=== PATIENT | male | born 1955 ===

== ENCOUNTER 2017-03-05 13:14 | Inpatient (IN) | payer BC, MEDICAID ==
[2017-03-05] MEDS ORDERED: Sodium Chloride 0.9% 1,000 ML IV STA (13:43)
--- NOTE | 2017-03-05 13:46 | ED PDOC ---
Arrival/HPI - General Time Seen by Provider: 03/05/17 13:15 Historian: Patient - History of Present Illness Narrative History of Present Illness (Text): 03/05/17 13:45 A 61 year old male, whose past medical history includes diabetes and Hyperlipidemia, presents to the emergency department for evaluation after being recommended to come to the emergency department by primary doctor, Dr. Lam to eval for UTI vs. Prostatitis . The patient has a 1 day history of pain when urinating with a fever. He also states how he feels as he has a incomplete bladder emptying. The patient denies nausea, vomiting, constipation, diarrhea, penile discharge, scrotal swelling, flank pain, or any other complaints at this time. PMD: Dr. Lam Time/Duration: 24 hours Symptom Onset: Sudden Symptom Course: Unchanged Quality: Burning Activities at Onset: Light Context: Home Past Medical History - Provider Review Nursing Documentation Reviewed: Yes - Cardiac Hx Hyperlipemia: Yes Hx Hypertension: Yes - Endocrine/Metabolic Hx Diabetes Mellitus Type 2: Yes - Hematological/Oncological Hx Blood Transfusions: No - Musculoskeletal/Rheumatological Hx Falls: No - Psychiatric Hx Depression: No Hx Emotional Abuse: No Hx Physical Abuse: No Hx Substance Use: No - Past Surgical History Past Surgical History: No Previous - Anesthesia Hx Anesthesia Reactions: No Hx Malignant Hyperthermia: No - Suicidal Assessment Feels Threatened In Home Enviroment: No Family/Social History - Physician Review Nursing Documentation Reviewed: Yes Family/Social History: No Known Family HX Smoking Status: nonsmoker Hx Alcohol Use: No Hx Substance Use: No Hx Substance Use Treatment: No Allergies/Home Meds Allergies/Adverse Reactions: Allergies No Known Allergies Allergy (Verified 05/13/14 11:00) Home Medications: Home Meds Medication Instructions Recorded Confirmed Ezetimibe/Simvastatin [Vytorin 10 1 tab PO DAILY 08/19/12 05/13/14 mg-10 mg] Glyburide [Glyburide] 5 mg PO BID 05/13/14 05/13/14 Insulin Aspart, Recombinant 24 units SC DAILY 05/13/14 05/13/14 [Novolog] Insulin Detemir [Levemir] 30 units SC DAILY 05/13/14 05/13/14 Lisinopril [Lisinopril] 20 mg PO DAILY 05/13/14 05/13/14 Meclizine HCl [Antivert] 12.5 mg PO TID PRN 05/13/14 05/13/14 Metformin HCl [Metformin] 1,000 mg PO BID 05/13/14 05/13/14 Silodosin [Rapaflo] 8 mg PO DAILY 05/13/14 05/13/14 Review of Systems - Physician Review All systems were reviewed & negative as marked: Yes - Review of Systems Constitutional: Fevers Eyes: absent: Vision Changes ENT: absent: Hearing Changes Respiratory: absent: SOB, Cough, Sputum, Wheezing Cardiovascular: absent: Chest Pain, Palpitations, Edema, Calf Pain, ERDDY, Orthopnea, Syncope Gastrointestinal: absent: Abdominal Pain, Constipation, Diarrhea, Nausea, Vomiting Genitourinary Male: Dysuria, Frequency, Urinary Output Changes. absent: Hematuria Musculoskeletal: absent: Back Pain Skin: absent: Rash Neurological: absent: Headache Endocrine: absent: Diaphoresis Hemo/Lymphatic: absent: Adenopathy Psychiatric: absent: Anxiety Physical Exam Vital Signs Reviewed: Yes Vital Signs Temp Pulse Resp BP Pulse Ox 03/05/17 13:14 98.8 F 101 H 18 151/72 H 100 Temperature: Afebrile Blood Pressure: Hypertensive Pulse: Tachycardic Respiratory Rate: Normal Appearance: Positive for: Well-Appearing, Non-Toxic, Comfortable Pain Distress: None Mental Status: Positive for: Alert and Oriented X 3 - Systems Exam Head: Present: Atraumatic, Normocephalic Pupils: Present: PERRL Extroacular Muscles: Present: EOMI Conjunctiva: Present: Normal Mouth: Present: Moist Mucous Membranes Neck: Present: Normal Range of Motion Respiratory/Chest: Present: Clear to Auscultation, Good Air Exchange. No: Respiratory Distress, Accessory Muscle Use Cardiovascular: Present: Regular Rate and Rhythm, Normal S1, S2. No: Murmurs Abdomen: Present: Normal Bowel Sounds. No: Tenderness, Distention, Peritoneal Signs Genitourinary Male: Present: Normal External Genitalia, Circumcised Penis ( Nurse Светлана chaperoned throughout examination). No: Lesions, Penile Discharge, Testicle Tenderness, Penile Swelling, Masses, Erythema, Hernias, Testicle Swelling, Prostate Tenderness, Prostate Enlargement Back: Present: Normal Inspection. No: CVA Tenderness, Midline Tenderness Upper Extremity: Present: Normal Inspection. No: Cyanosis, Edema Lower Extremity: Present: Normal Inspection. No: Edema Neurological: Present: GCS=15, CN II-XII Intact, Speech Normal Skin: Present: Warm, Dry, Normal Color. No: Rashes Psychiatric: Present: Alert, Oriented x 3, Normal Insight, Normal Concentration Medical Decision Making ED Course and Treatment: 03/05/17 13:58 Impression: A 61 year old male with dysuria. Differential Diagnosis included but are not limited to: Plan: -- Abd & Pel CT -- Labs -- Toradol, IV Fluids -- Urinalysis -- Reassess and disposition Progress Notes: 03/05/17 14:49 Labs show elevated wbc with shift, and mildly elevated alk phos. UA negative for leukocytes and nitrates but shows 20 wbc, few bacteria, and 2-5 rbcs. Post void residual 0. P:CT 03/05/17 16:15 CT abd/pelvis shows "LOWER THORAX: Unremarkable. LIVER: Unremarkable. No gross lesion or ductal dilatation. GALLBLADDER AND BILE DUCTS: Unremarkable. PANCREAS: Unremarkable. No gross lesion or ductal dilatation. SPLEEN: Unremarkable. ADRENALS: Unremarkable. No mass. KIDNEYS AND URETERS: Unremarkable. No hydronephrosis. No solid mass. VASCULATURE: Unremarkable. No aortic aneurysm. BOWEL: Unremarkable. No obstruction. No gross mural thickening. APPENDIX: Normal appendix. PERITONEUM: Unremarkable. No free fluid. No free air. LYMPH NODES: Unremarkable. No enlarged lymph nodes. BLADDER: Unremarkable. REPRODUCTIVE: Unremarkable. BONES: No acute fracture. OTHER FINDINGS: None. IMPRESSION: Unremarkable contrast enhanced CT of the abdomen and pelvis." 03/05/17 16:[address] Lacey. Due to patient's leukocytosis, fever, presenting tachycardia and ua with bacteria and wbc, will admit to med/sx for early uti vs prostatis pending ucx and bcx. Requesting admission to med/sx with ceftriaxone. - Lab Interpretations Lab Results: 03/05/17 14:20 03/05/17 14:20 Lab Results 03/05/17 14:20: Sodium 134, Potassium 4.3, Chloride 99, Carbon Dioxide 25, Anion Gap 14, BUN 10, Creatinine 0.9, Est GFR ( Amer) > 60, Est GFR (Non- Af Amer) > 60, Random Glucose 210 H, Calcium 9.7, Phosphorus 3.1, Magnesium 1.4 L, Total Bilirubin 0.7, AST 41, ALT 45, Alkaline Phosphatase 274 H, Total Protein 7.5, Albumin 3.9, Globulin 3.6, Albumin/Globulin Ratio 1.1 03/05/17 14:20: Urine Color Yellow, Urine Appearance Sl cloudy, Urine pH 6.0, Ur Specific Heth >= 1.030, Urine Protein >=300 H, Urine Glucose (UA) 500 H, Urine Ketones Trace H, Urine Blood Small H, Urine Nitrate Negative, Urine Bilirubin Negative, Urine Urobilinogen 0.2, Ur Leukocyte Esterase Negative, Urine RBC 2 - 5, Urine WBC 15 - 20, Ur Epithelial Cells 1 - 3, Urine Bacteria Few 03/05/17 14:20: WBC 13.0 H D, RBC 4.45, Hgb 10.1 L, Hct 31.7 L, MCV 71.2 L, MCH 22.7 L, MCHC 31.9, RDW 17.0 H, Plt Count 203, MPV 10.6, Gran % 83.2 H, Lymph % ( Auto) 8.6 L, [place] % (Auto) 8.0 H, Eos % (Auto) 0.0 L, Baso % (Auto) 0.2, Gran # 10.82 H, Lymph # 1.1 L, [place] # 1.0 H, Eos # 0.0, Baso # 0.02 - RAD Interpretation Radiology Orders: 03/05/17 13:44 ABD & PELVIS IV CONTRAST ONLY [CT] Stat - Medication Orders Current Medication Orders: Sodium Chloride (Sodium Chloride 0.9%) 1,000 mls @ 100 mls/hr IV .Q10H JAVI Ceftriaxone Sodium (Rocephin 1 Gram Ivpb) 1 gm in 100 mls @ 200 mls/hr IVPB STAT STA PRN Reason: Protocol Stop: 03/05/17 17:10 Discontinued Medications Sodium Chloride (Sodium Chloride 0.9%) 1,000 mls @ 999 mls/hr IV .Q1H1M STA Stop: 03/05/17 14:43 Last Admin: 03/05/17 14:20 Dose: 999 mls/hr eMAR Start Stop Document 03/05/17 14:20 EQ (Rec: 03/05/17 14:46 EQ [facility] – [id number][place] Intravenous Solution Start Date 03/05/17 Start Time 14:20 Ketorolac Tromethamine (Toradol) 30 mg IVP STAT STA Stop: 03/05/17 13:44 Last Admin: 03/05/17 14:46 Dose: 30 mg MAR Pain Assessment Document 03/05/17 14:46 EQ (Rec: 03/05/17 14:46 [place] [facility] [id number] Pain Reassessment Is this a pain reassessment? No Sleep Is patient sleeping during reassessment? No Presence of Pain Presence of Pain Yes Pain Scale Used Pain Scale Used Numeric IVP Administration Document 03/05/17 14:46 EQ (Rec: 03/05/17 14:46 EQ [facility] – [id number]) Charges for Administration # of IVP Administrations 1 - Scribe Statement The provider has reviewed the documentation as recorded by the Charly Valencia Provider Scribe Attestation: All medical record entries made by the Scribe were at my direction and personally dictated by me. I have reviewed the chart and agree that the record accurately reflects my personal performance of the history, physical exam, medical decision making, and the department course for this patient. I have also personally directed, reviewed, and agree with the discharge instructions and disposition. Disposition/Present on Arrival - Present on Arrival Any Indicators Present on Arrival: No History of DVT/PE: No History of Uncontrolled Diabetes: No Urinary Catheter: No History Surgical Site Infection Following: None - Disposition Have Diagnosis and Disposition been Completed?: Yes Diagnosis: Dysuria Disposition: HOSPITALIZED Disposition Time: 16:50 Patient Plan: Admission Patient Problems: Current Active Problems Problem Status Onset Anemia Chronic Diabetes mellitus Chronic Condition: FAIR Referrals: Emeli Arnold MD [Primary Care Provider] - Follow up with primary
[2017-03-05 14:30] LABS: BASO # 0.02 K/mm3 (0.0-2.0); BASO % 0.2 % (0.0-3.0); GRAN # 10.82 (1.4-6.5); GRAN % 83.2 % (50.0-68.0); HEMATOCRIT 31.7 % (42.0-52.0); LYMPH # 1.1 (1.2-3.4); LYMPH % 8.6 % (22.0-35.0); MEAN CELL VOLUME 71.2 fl (80.0-105.0); MEAN CORPUSCULAR HEMOGLOBIN 22.7 pg (25.0-35.0); MEAN CORPUSCULAR HGB CONC 31.9 g/dl (31.0-37.0); MEAN PLATELET VOLUME 10.6 fl (7.0-11.0); URINE BILIRUBIN NEGATIVE (NEGATIVE); URINE BLOOD SMALL (NEGATIVE); URINE GLUCOSE (UA) 500 mg/dL (NEGATIVE); URINE KETONE TRACE mg/dL (NEGATIVE); URINE LEUKOCYTE ESTERASE NEGATIVE Leu/uL (NEGATIVE); URINE PROTEIN >=300 mg/dL (<30 mg/dL); URINE UROBILINOGEN 0.2 E.U./dL (<1 E.U./dL)
[2017-03-05 14:31] LABS: URINE APPEARANCE SL CLOUDY (CLEAR); URINE COLOR YELLOW (YELLOW)
[2017-03-05 14:37] LABS: URINE BACTERIA FEW (NEG); URINE WBC 15 - 20 /hpf (0-6)
[2017-03-05 14:40] LABS: ALB/GLOB RATIO 1.1 (1.1-1.8); ALKALINE PHOSPHATASE 274 U/L (38-126); ALT/SGPT 45 U/L (7-56); AST/SGOT 41 U/L (17-59); BILIRUBIN,TOTAL 0.7 mg/dL (0.2-1.3); BLOOD UREA NITROGEN 10 mg/dL (7-21); CALCIUM 9.7 mg/dL (8.4-10.5); CARBON DIOXIDE 25 mmol/L (21-33); CHLORIDE 99 mmol/L (98-107); GFR AFRICAN-AMERICAN > 60; GLUCOSE,RANDOM 210 mg/dL (70-110); MAGNESIUM 1.4 mg/dL (1.7-2.2); PHOSPHOROUS 3.1 mg/dL (2.5-4.5); POTASSIUM 4.3 mmol/L (3.6-5.0); SODIUM 134 mmol/L (132-148); TOTAL PROTEIN 7.5 g/dL (5.8-8.3)
[2017-03-05] MEDS ORDERED: Iohexol 350 MG/100 ML VIAL ONE (15:36)
--- NOTE | 2017-03-05 16:15 | CT ---
PROCEDURE: CT Abdomen and Pelvis with contrast HISTORY: abdominal pain COMPARISON: None. TECHNIQUE: Contrast dose: 100 cc of Omni 350 Radiation dose: Total exam DLP = 293 mGy-cm. This CT exam was performed using one or more of the following dose reduction techniques: Automated exposure control, adjustment of the mA and/or kV according to patient size, and/or use of iterative reconstruction technique. FINDINGS: LOWER THORAX: Unremarkable. LIVER: Unremarkable. No gross lesion or ductal dilatation. GALLBLADDER AND BILE DUCTS: Unremarkable. PANCREAS: Unremarkable. No gross lesion or ductal dilatation. SPLEEN: Unremarkable. ADRENALS: Unremarkable. No mass. KIDNEYS AND URETERS: Unremarkable. No hydronephrosis. No solid mass. VASCULATURE: Unremarkable. No aortic aneurysm. BOWEL: Unremarkable. No obstruction. No gross mural thickening. APPENDIX: Normal appendix. PERITONEUM: Unremarkable. No free fluid. No free air. LYMPH NODES: Unremarkable. No enlarged lymph nodes. BLADDER: Unremarkable. REPRODUCTIVE: Unremarkable. BONES: No acute fracture. OTHER FINDINGS: None. IMPRESSION: Unremarkable contrast enhanced CT of the abdomen and pelvis.
[2017-03-05] MEDS ORDERED: cefTRIAXone 1 gm 1 GM/100 ML BAG IVPB STA (16:41)
[2017-03-05 17:30] VITALS: BMI 24.7
[2017-03-05] MEDS: Sodium Chloride 0.9% 1,000 ML IV SCH (17:50)
[2017-03-05] MEDS: Insulin Reg-HIGH-Coverage SC SCH (21:43)
[2017-03-05] MEDS: Insulin Detemir 100 units/ml Vial (Levemir) SC SCH (21:44)
[2017-03-05] MEDS ORDERED: Pneumococcal 23-Valent Vaccine IM ONE (22:09)
[2017-03-05] MEDS ORDERED: Influenza Vaccine 60 mcg/0.5 mL SYR (4YR UP) IM ONE (22:09)
[2017-03-06] MEDS: Sodium Chloride 0.9% 1,000 ML IV SCH (03:00)
--- NOTE | 2017-03-06 06:00 | CP.PCM.PN ---
Subjective - Date & Time of Evaluation Date of Evaluation: 03/06/17 Time of Evaluation: 05:58 - Subjective Subjective: Seen because patient requested pain medicine. Has complaint of pain in urethra. 61 year old male was admitted with suprapubic pain, intermittent fever of 5 days duration. Is here for UTI. Has PMH of DM II , HLD , HTN, GI bleeding. Has no other complaints. He was given tylenol one hour earlier. Also received toradol in the ER which seemed to have helped. Objective - Vital Signs/Intake and Output Vital Signs (last 24 hours): Temp Pulse Resp BP Pulse Ox 98.8 F 101 H 18 157/72 H 98 03/05/17 21:56 03/05/17 21:56 03/05/17 21:56 03/05/17 21:56 03/05/17 17:52 Intake and Output: 03/05/17 03/06/17 18:59 06:59 Intake Total 420 Balance 420 - Medications Medications: Current Medications Acetaminophen (Tylenol 325mg Tab) 650 mg PO Q4H PRN PRN Reason: Fever >100.4 F Last Admin: 03/06/17 04:37 Dose: 650 mg Atorvastatin Calcium (Lipitor) 20 mg PO DIN [facility] Last Admin: 03/05/17 21:43 Dose: 20 mg Sodium Chloride (Sodium Chloride 0.9%) 1,000 mls @ 100 mls/hr IV .Q10H [facility] Last Admin: 03/06/17 03:00 Dose: 100 mls/hr Ceftriaxone Sodium (Rocephin 1 Gram Ivpb) 1 gm in 100 mls @ 100 mls/hr IVPB DAILY [facility] PRN Reason: Protocol Insulin Detemir (Levemir) 30 unit SC HS [facility] Last Admin: 03/05/17 21:44 Dose: 30 unit Insulin Human Regular (Humulin R High) 0 units SC ACHS [facility] PRN Reason: Protocol Last Admin: 03/05/17 21:43 Dose: 2 units Lisinopril (Zestril) 30 mg PO DAILY [facility] Metformin HCl (Glucophage) 1,000 mg PO BID [facility] Last Admin: 03/05/17 23:27 Dose: Not Given - Constitutional Appears: Well, No Acute Distress - Head Exam Head Exam: ATRAUMATIC, NORMAL INSPECTION, NORMOCEPHALIC - Eye Exam Eye Exam: Normal appearance - ENT Exam ENT Exam: Normal External Ear Exam - Neck Exam Neck Exam: Normal Inspection - Respiratory Exam Respiratory Exam: NORMAL BREATHING PATTERN - Cardiovascular Exam Cardiovascular Exam: absent: JVD - GI/Abdominal Exam GI & Abdominal Exam: absent: Distended - Rectal Exam Rectal Exam: Deferred - Exam Additional comments: Deferred. - Extremities Exam Extremities Exam: Normal Inspection - Back Exam Back Exam: NORMAL INSPECTION - Neurological Exam Neurological Exam: Alert, Oriented x3 - Psychiatric Exam Psychiatric exam: Normal Affect, Normal Mood - Skin Skin Exam: Abrasion Assessment and Plan - Assessment and Plan (Free Text) Assessment: Pain in urethra. UTI. DM II. HLD. HTN. Plan: Toradol 30 mg IV x 1. Continue present management.
[2017-03-06 06:38] LABS: HEMATOCRIT 26.1 % (42.0-52.0); MEAN CELL VOLUME 71.3 fl (80.0-105.0); MEAN CORPUSCULAR HEMOGLOBIN 22.4 pg (25.0-35.0); MEAN CORPUSCULAR HGB CONC 31.4 g/dl (31.0-37.0); MEAN PLATELET VOLUME 10.4 fl (7.0-11.0); RED CELL DISTRIBUTION WIDTH 17.2 % (11.5-14.5); WHITE BLOOD COUNT 11.2 10^3/ul (4.5-11.0)
[2017-03-06 06:56] LABS: ALB/GLOB RATIO 0.9 (1.1-1.8); ALKALINE PHOSPHATASE 195 U/L (38-126); ALT/SGPT 46 U/L (7-56); AST/SGOT 25 U/L (17-59); BILIRUBIN,TOTAL 0.5 mg/dL (0.2-1.3); BLOOD UREA NITROGEN 11 mg/dL (7-21); CALCIUM 8.7 mg/dL (8.4-10.5); CARBON DIOXIDE 24 mmol/L (21-33); CHLORIDE 106 mmol/L (95-110); GFR AFRICAN-AMERICAN > 60; GLUCOSE,RANDOM 236 mg/dL (70-110); POTASSIUM 4.1 mmol/L (3.6-5.0); SODIUM 136 mmol/L (132-148); TOTAL PROTEIN 6.2 g/dL (5.8-8.3)
[2017-03-06] MEDS: Insulin Reg-HIGH-Coverage SC SCH ×4 (08:26→21:49)
[2017-03-06] MEDS ORDERED: cefTRIAXone 1 gm 1 GM/100 ML BAG IVPB SCH (10:00)
[2017-03-06 10:19] LABS: IRON 14 ug/dL (45-180)
--- NOTE | 2017-03-06 12:24 | CP.PCM.CON ---
History of Present Illness - History of Present Illness History of Present Illness: 61 year old male with PMH of DM, dyslipidemia, HTN, history of bilateral cataract surgery was sent to [facility] because of pain on urination , hesitancy and incomplete emptying of bladder for the past 2-3 days. He was seen by his PMD and he was told to be admitted. He had subjective fevers and chills, denies flank pain, no nausea or vomiting, no headache or dizziness, no chest pain, no SOB, no abdominal pain, no diarrhea. He also denies penile discharge, no scrotal swelling. Infectious diseases consult is requested to further evaluate and manage. Review of Systems - Review of Systems All systems: reviewed and no additional remarkable complaints except (as per HPI ) Past Patient History - Past Social History Smoking Status: Never Smoked - CARDIAC Hx Hypercholesterolemia: Yes Hx Hypertension: Yes - NEUROLOGICAL Hx Dizziness: Yes - HEENT Hx HEENT Problems: Yes (eyeglasses) Hx Cataracts: Yes (b/l sx) Other/Comment: impaired vision r eye had "bleeding behind eye" pt stated - ENDOCRINE/METABOLIC Hx Diabetes Mellitus Type 2: Yes - HEMATOLOGICAL/ONCOLOGICAL Hx Blood Transfusions: No - MUSCULOSKELETAL/RHEUMATOLOGICAL Hx Falls: No - PSYCHIATRIC Hx Depression: No Hx Emotional Abuse: No Hx Physical Abuse: No Hx Substance Use: No - SURGICAL HISTORY Hx Surgeries: (b/l cataract sx) - ANESTHESIA Hx Anesthesia Reactions: No Hx Malignant Hyperthermia: No Meds Allergies/Adverse Reactions: Allergies Allergy/AdvReac Type Severity Reaction Status Date / Time No Known Allergies Allergy Verified 05/13/14 11:00 - Medications Medications: Current Medications Acetaminophen (Tylenol 325mg Tab) 650 mg PO Q4H PRN PRN Reason: Fever >100.4 F Atorvastatin Calcium (Lipitor) 20 mg PO DIN [facility] Last Admin: 03/05/17 21:43 Dose: 20 mg Sodium Chloride (Sodium Chloride 0.9%) 1,000 mls @ 100 mls/hr IV .Q10H [facility] Last Admin: 03/05/17 17:50 Dose: 100 mls/hr Ceftriaxone Sodium (Rocephin 1 Gram Ivpb) 1 gm in 100 mls @ 100 mls/hr IVPB DAILY [facility] PRN Reason: Protocol Insulin Detemir (Levemir) [address] [facility] Last Admin: 03/05/17 21:44 Dose: 30 unit Insulin Human Regular (Humulin R High) 0 units SC ACHS [facility] PRN Reason: Protocol Last Admin: 03/05/17 21:43 Dose: 2 units Lisinopril (Zestril) 30 mg PO DAILY [facility] Metformin HCl (Glucophage) 1,000 mg PO BID [facility] Last Admin: 03/05/17 23:27 Dose: Not Given Physical Exam - Constitutional Appears: Non-toxic, No Acute Distress - Head Exam Head Exam: NORMAL INSPECTION - ENT Exam ENT Exam: Mucous Membranes Moist - Neck Exam Neck exam: Negative for: Lymphadenopathy, Meningismus - Respiratory Exam Respiratory Exam: Decreased Breath Sounds - Cardiovascular Exam Cardiovascular Exam: +S1, +S2 - GI/Abdominal Exam GI & Abdominal Exam: Soft. absent: Tenderness Results - Vital Signs Recent Vital Signs: Last Vital Signs Temp 98.8 F 03/05/17 21:56 Pulse 101 H 03/05/17 21:56 Resp 18 03/05/17 21:56 BP 157/72 H 03/05/17 21:56 Pulse Ox 98 03/05/17 17:52 - Labs Result Diagrams: 03/06/17 05:35 03/06/17 05:35 Assessment & Plan - Assessment and Plan (Free Text) Plan: Assessment Sepsis due to gram negative bacilli bacteremia R/O prostatitis DM dyslipidemia HTN history of bilateral cataract surgery Plan Started patient on cefepime pending identification and sensitivities of the gram negative bacilli in the urine; follow up blood cx; reviewed CT A/P which did not show acute pathology PSA is elevated at 7.8 - follow up Urology evaluation - patient may need prolonged course of antibiotics will monitor clinically
--- NOTE | 2017-03-06 13:06 | HP ---
CHIEF COMPLAINT: Suprapubic pain and dysuria, fever for 1 week. HISTORY OF PRESENT ILLNESS: A 61-year-old male with history of poorly-controlled diabetes and hyperlipidemia, who presented with complaints of suprapubic pain, intermittent fever for 5 to 6 days. The patient states that he has severe difficulty of urination, feels like not emptying his bladder. His suprapubic pain is radiating to the rectum. He is also constipated for a couple of days. The patient was evaluated in the office. His temperature was 102. He was sent to emergency room for evaluation and treatment. PAST MEDICAL HISTORY: Significant for poorly-controlled type 2 diabetes mellitus, hyperlipidemia, hypertension, history of GI bleeding due to gastric ulcer and AV malformation. PAST SURGICAL HISTORY: No surgical history. ALLERGIES: THE PATIENT HAS NO KNOWN ALLERGIES. CURRENT MEDICATIONS: Insulin Levemir 30 units at night and 10 units of regular insulin with meals, metformin, glipizide 10 mg twice a day, lisinopril 30 mg daily and atorvastatin 40 mg daily. FAMILY HISTORY: Significant for type 2 diabetes mellitus. SOCIAL HISTORY: The patient denies any smoking, alcohol or drug use. The patient is . 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 He is independent of activity of daily living. REVIEW OF SYSTEMS: The patient complains of fever for the past 7 days. He has decrease of appetite, but denies any weight loss. He denies any sore throat, nasal congestion, dysphagia. He denies any cough, chest pain or shortness of breath. He denies any heart palpitation. He denies chest pain, nausea, vomiting or diarrhea. He complains of constipation for the past 7 days. He denies any rectal bleeding, melena or hematemesis. The patient denies any flank pain, but complains of suprapubic pain and frequency and pain on urination. The patient denies any joint pains. He denies any headaches, blurry vision, weakness or paresthesia. PHYSICAL EXAMINATION: GENERAL: The patient was alert, awake and oriented. VITAL SIGNS: His vitals are stable. His temperature in the emergency room was 98.8, his pulse 101, blood pressure 151/72, respiratory rate 18 and oxygen saturation 100%. HEENT: Head was normocephalic, atraumatic. Oral mucosa was moist. NECK: Supple. LUNGS: Clear to auscultation. HEART: With regular rhythm and rate. ABDOMEN: Soft, nondistended. There was some tenderness in the lower abdomen and pelvis bilaterally. EXTREMITIES: With no edema. Decreased pulses bilaterally. DIAGNOSTIC TESTS: CBC was insignificant for WBC 13,000, hemoglobin was 10.1, hematocrit 31.7. There was left shift with increase of granulocytes. Chemistry showed normal electrolytes, normal renal function with BUN 10 and creatinine 0.9. Random glucose was 210. His alkaline phosphatase was elevated at 274. Liver enzymes were normal. The patient had elevated prostate antigen at 7.8. Urinalysis showed cloudy urine with high protein, glucose, small amount of blood and wbc [address] scan of the abdomen showed no acute appendicitis and no acute pathology with normal reproductive organs and bladder. There was no lymphadenopathy. ASSESSMENT: 1. A 61-year-old male with history of poorly-controlled type 2 diabetes mellitus and dysuria and intermittent fever for 5 days. We must rule out urinary tract infection and acute prostatitis. 2. Type 2 diabetes mellitus. 3. Hyperlipidemia. 4. Anemia. PLAN OF TREATMENT: Admitted to Med-Surg floor. Septic workup with blood cultures and urine cultures were done. Infectious Disease specialist was called on consult. The patient was started on Rocephin. We will hydrate the patient, continue his insulin regimen. Follow up cultures. We will monitor his hemoglobin. Stool for guaiac was also ordered. Emeli Arnold MD ANDREI
--- NOTE | 2017-03-06 13:21 | US ---
PROCEDURE: Ultrasound of the Bladder HISTORY: Dysuria, prostatits? COMPARISON: None available. TECHNIQUE: Sonographic evaluation of the bladder was performed. FINDINGS: The urinary bladder is well distended and grossly normal in appearance without wall thickening or intraluminal debris. No calculus or gross mass lesion. No free fluid in pelvis. Bilateral ureteral jets are visualized on color flow imaging Prevoid Volume: 324.20 cc. Post void residual: 150 cc. The prostate gland is normal in size and measures 4.3 x 2.7 x 3.4 cm with a volume 28 cc. IMPRESSION: Moderate postvoid residual.
[2017-03-06] MEDS: Cefepime IV 2 gm in NS 2 GM/100 ML BAG IVPB SCH ×2 (13:38→22:04)
[2017-03-06 16:30] LABS: HEMATOCRIT 26.5 % (42.0-52.0); MEAN CELL VOLUME 71.4 fl (80.0-105.0); MEAN CORPUSCULAR HEMOGLOBIN 22.4 pg (25.0-35.0); MEAN CORPUSCULAR HGB CONC 31.3 g/dl (31.0-37.0); MEAN PLATELET VOLUME 10.3 fl (7.0-11.0); RED CELL DISTRIBUTION WIDTH 17.1 % (11.5-14.5)
[2017-03-06] MEDS: Pantoprazole 40 mg EC Tab PO SCH (17:25)
[2017-03-06] MEDS: Insulin Detemir 100 units/ml Vial (Levemir) SC SCH (21:53)
[2017-03-07] MEDS ORDERED: Bacitracin 500 Units/gm Oint Foilpak UD ONE (02:35)
--- NOTE | 2017-03-07 05:32 | PCM.URO ---
Urology Progress Note - Subjective Abdominal Pain: Yes - Objective Lab Studies: Reviewed (full note to be dictated /thanks for gu consult /plans to be discussed) Lab Results Last 24 Hours: Laboratory Results - last 24 hr 03/06/17 03/06/17 03/06/17 05:35 05:35 07:20 WBC 11.2 H RBC 3.66 Hgb 8.2 L Hct 26.1 L MCV 71.3 L MCH 22.4 L MCHC 31.4 RDW 17.2 H Plt Count 164 MPV 10.4 Sodium 136 Potassium 4.1 Chloride 106 Carbon Dioxide 24 Anion Gap 10 BUN 11 Creatinine 0.9 Est GFR ( Amer) > 60 Est GFR (Non-Af Amer) > 60 POC Glucose (mg/dL) 252 H Random Glucose 236 H Calcium 8.7 Iron TIBC % Saturation Ferritin Total Bilirubin 0.5 AST 25 ALT 46 Alkaline Phosphatase 195 H D Total Protein 6.2 Albumin 3.0 Globulin 3.2 Albumin/Globulin Ratio 0.9 L Stool Occult Blood 03/06/17 03/06/17 03/06/17 10:03 10:03 11:03 WBC RBC Hgb Hct MCV MCH MCHC RDW Plt Count MPV Sodium Potassium Chloride Carbon Dioxide Anion Gap BUN Creatinine Est GFR ( Amer) Est GFR (Non-Af Amer) POC Glucose (mg/dL) Random Glucose Calcium Iron 14 L TIBC 363 % Saturation 4 L Ferritin 14.2 Total Bilirubin AST ALT Alkaline Phosphatase Total Protein Albumin Globulin Albumin/Globulin Ratio Stool Occult Blood Positive H 03/06/17 03/06/17 03/06/17 11:45 16:20 16:51 WBC 10.0 RBC 3.71 Hgb 8.3 L Hct 26.5 L MCV 71.4 L MCH 22.4 L MCHC 31.3 RDW 17.1 H Plt Count 157 MPV 10.3 Sodium Potassium Chloride Carbon Dioxide Anion Gap BUN Creatinine Est GFR ( Amer) Est GFR (Non-Af Amer) POC Glucose (mg/dL) 219 H 304 H Random Glucose Calcium Iron TIBC % Saturation Ferritin Total Bilirubin AST ALT Alkaline Phosphatase Total Protein Albumin Globulin Albumin/Globulin Ratio Stool Occult Blood Intake & Output: Intake & Output 03/06/17 03/06/17 03/07/17 06:59 18:59 06:59 Intake Total 1860 Output Total 500 Balance 1360 Weight 140 lb 140 lb Intake: IV 1200 Right Antecubital 1200 Oral 660 Output: Urine 500 Urine, Voided 500 Other: # Voids Urine, Voided 2 2 # Bowel Movements 0 1 Vital Signs: Vital Signs - 24 hr 03/06/17 03/06/17 03/06/17 09:06 10:19 16:00 Temperature 98.5 F 99.6 F Pulse Rate 90 90 96 H Respiratory 22 20 Rate Blood Pressure 146/69 146/69 137/60 O2 Sat by Pulse 99 96 Oximetry 03/06/17 18:47 Temperature 98.7 F Pulse Rate Respiratory Rate Blood Pressure O2 Sat by Pulse Oximetry
[2017-03-07] MEDS: Cefepime IV 2 gm in NS 2 GM/100 ML BAG IVPB SCH ×3 (05:43→21:36)
[2017-03-07] MEDS: Pantoprazole 40 mg EC Tab PO SCH ×2 (05:45→17:04)
[2017-03-07 08:23] LABS: HEMATOCRIT 27.7 % (42.0-52.0); MEAN CELL VOLUME 71.2 fl (80.0-105.0); MEAN CORPUSCULAR HEMOGLOBIN 22.1 pg (25.0-35.0); MEAN PLATELET VOLUME 10.3 fl (7.0-11.0); RED CELL DISTRIBUTION WIDTH 17.3 % (11.5-14.5); WHITE BLOOD COUNT 8.4 10^3/ul (4.5-11.0)
[2017-03-07 08:35] LABS: ALB/GLOB RATIO 0.9 (1.1-1.8); ALKALINE PHOSPHATASE 238 U/L (38-126); ALT/SGPT 42 U/L (7-56); AST/SGOT 29 U/L (17-59); BILIRUBIN,TOTAL 0.4 mg/dL (0.2-1.3); BLOOD UREA NITROGEN 11 mg/dL (7-21); CALCIUM 8.9 mg/dL (8.4-10.5); CARBON DIOXIDE 26 mmol/L (21-33); CHLORIDE 105 mmol/L (98-107); GFR AFRICAN-AMERICAN > 60; GLUCOSE,RANDOM 209 mg/dL (70-110); POTASSIUM 3.9 mmol/L (3.6-5.0); SODIUM 137 mmol/L (132-148); TOTAL PROTEIN 6.7 g/dL (5.8-8.3)
[2017-03-07] MEDS: Insulin Reg-HIGH-Coverage SC SCH ×4 (08:35→22:12)
[2017-03-07 09:21] LABS: RETIC% 1.21 % (0.5-1.5)
[2017-03-07 09:37] LABS: IRON 19 ug/dL (45-180)
--- NOTE | 2017-03-07 09:51 | PN ---
DATE: 03/06/2017 SUBJECTIVE: The patient continues with suprapubic pain and severe pain on urination with urinary frequency. He requested pain medication last night. He denies any diarrhea. He denies any nausea, vomiting. PHYSICAL EXAMINATION: VITAL SIGNS: He is afebrile with temperature 98.5, blood pressure was 146/69, pulse 90, and respiratory rate 22. GENERAL: He is comfortable and sitting in the chair, alert, awake, and oriented. HEENT: Head is normocephalic and atraumatic. Eyes with pupils reactive to light. No jaundice. Oral mucosa is moist. NECK: Supple. LUNGS: Clear to auscultation. HEART: Regular rhythm and rate. ABDOMEN: Soft. There is tenderness on deep palpation in suprapubic area. RECTAL: Showed no rectal noises and there is significant tenderness of the prostate gland on palpation. EXTREMITIES: With no edema. DIAGNOSTIC TESTS: Showed improved CBC with WBC 10, hemoglobin 8.3, and hematocrit 26.5. Comprehensive panel is normal. His glucose remains elevated. His procalcitonin was borderline 0.5. Urine and blood cultures are pending. ASSESSMENT: 1. Urinary tract infection with probably acute prostatitis. 2. Diabetes mellitus, uncontrolled. 3. Macrocytic anemia. PLAN OF TREATMENT: Continue IV antibiotic. Awaiting evaluation by ID. Follow up cultures. We will do stool for occult blood. Add Protonix for GI protection. Continue with pain medication. Add the tamsulosin to improve urine flow. Emeli Arnold MD MTDD
--- NOTE | 2017-03-07 12:28 | PN ---
DATE: SUBJECTIVE: A 61-year-old male that was admitted for suspected prostatitis, still reeling with pain when he urinates despite two days of IV antibiotics and apparently IV Toradol. The patient today was not aware of a change in his bowels, but the stool was positive for guaiac as his admission labs revealed an unexpected anemia. The patient is asymptomatic except for the extreme dysuria that he classifies as very disturbing and painful and not allowing him to sleep, so the grade would be an 8 out of 10 and apparently not relieved with the IV Toradol that has been in place right now. Whether that is a new cause of his guaiac-positive stools or it is an ongoing issue, we have opted to ask Dr. Jesus to review the case as he know him for the past and last colonoscopy was approximately 4 years ago as per the patient recalls. He has an underlying diabetes mellitus that does not appear to be well controlled and his follow up in the offices are limited sometimes by the insurance restrictions and the availability of medications that he may not be able to afford. Nevertheless, he is here for a prostatitis. We note also that earlier on this morning, Dr. Jin reviewed his case as Dr. Lacey asked him on consult and we have yet to communicate with him as dictation/ recommendations have yet to be made full, but we will contact him as to the plans of care. ID consult with Dr. Ricci noted the need for probably prolonged IV antibiotics, what prolonged means yet, we are not sure, but he remains with pain on urination that makes it difficult to empty his bladder out and on the chart he says 2 to 3 days. The patient today admitted that it probably was more like a week that he has been having this discomfort. There was no penile discharge, no scrotal swelling, and no other pertinent information that I should include here. Dr. Lacey endorsed the case to me yesterday and was expecting this to be perhaps a complicated prostatitis, but the anemia that is persistent may be more than dilutional. He had had fever prior to the admission, none since he is here. The urine so far is growing some Gram-negative rods as we understand, we are awaiting for the identification and sensitivity. Insulin regimen is as prescribed, probably made worse to control given his underlying infection. PHYSICAL EXAMINATION: VITAL SIGNS: Today; temperature is 98.7 and afebrile since his admission, pulse rate is 96, blood pressure 137/60, respiratory rate of 20, and O2 saturation of 96 on room air, and the pain severity is 8 out 10 still, but actually when he tries to urinate, so he has some hesitancy. He has had a bowel movement and appears comfortable otherwise. GENERAL: He is alert and oriented to all spheres. HEENT: Oral mucosa is moist. NECK: Supple. No cervical lymphadenopathy. No bruit. LUNGS: Clear to auscultation and percussion. No wheeze or adventitious sounds in place, ABDOMEN: Appears soft. Bowel sounds are present. We are able to press in the suprapubic region.Patient is seen in bed in semi- position as his bladder discomfort feels better this way RECTAL: We did not do a rectal as this was done on his admission and we deferred that to his urologist for followup, but we expect that, that would be tender and the patient did remember that when the process was tried on his admission by Dr. Lacey, it was painful. EXTREMITIES: Have full range of motion. No edema. No change in the coloration. LABORATORY DATA: His lab reviews today his H and H were 8.3 and 26.5 stable when compared to yesterday. His platelet count remains in the 157. The patient does not appear pale in relation to these numbers. Differential has not been done. His chemistry today shows a glucose of 259, slightly lower than yesterday, but again probably are related to his infection and may require further intervention. His iron was listed as 14 on his admission and his TIBC is 363. PSA is not yet available. His urine on admission showed high proteinuria with glucosuria and trace blood, but all microscopic, no macroscopic. IMPRESSION: Prostatitis, most likely because of his dysuria. SECONDARY DIAGNOSES: 1. Anemia etiology to be determined. Iron deficient as proven. 2. Type 2 diabetes mellitus, poorly controlled. 3. Underlying hypertension, LEXA in place. PLAN OF CARE: I have already contacted and endorsed to Dr. Jesus, we will re-talk to Dr. Jin. I have added repeat iron, retic count, PSA, and A1c to his testing and as per ID, we will continue the IV antibiotics. We reached that to the pharmacy and there is some urinary anesthetic care that is which in the way of Pyridium and we will initiate that to see if he gets relief. We are depending on Dr. Jesus regarding the continued use of Toradol or any other nonsteroidals given his guaiac-positive stools. Rad Calderon MD ANDREI
[2017-03-07] MEDS: Insulin Detemir 100 units/ml Vial (Levemir) SC SCH (22:08)
--- NOTE | 2017-03-08 00:32 | PN ---
DATE: 03/07/2017 SUBJECTIVE: The patient is in bed in no acute distress, and nontoxic. PHYSICAL EXAMINATION: VITAL SIGNS: Temperature is 98, blood pressure is 160/70, respiratory rate of 20, and heart rate of 88. HEENT: Examination of HEENT is unremarkable. NECK: Supple. LUNGS: Have decreased breath sounds. HEART: Normal S1 and S2. ABDOMEN: Soft and nontender. LABORATORY DATA: Examination reveals a white count of 8.4, hemoglobin of 8, and platelets of 190. BUN of 11 and creatinine of 0.8. Microbiology reveals the urine culture with Enterobacter cloacae species with blood cultures are negative. Review of orders reveals the patient to be on cefepime.. Urine culture; Enterobacter cloacae is sensitive to cefepime. ASSESSMENT AND PLAN: He is a 61-year-old male who is seen earlier this morning in 371, bed 1 with a history of diabetes, dyslipidemia, hypertension, and history of bilateral cataract surgery. He has a pain in urination and was sent to the emergency room, with a sepsis, with Enterobacter cloacae, urinary tract infection was to rule out prostatitis pansensitive and organism with diabetic and dyslipidemia, on cefepime. Of note is that the blood cultures are negative with the urine culture is positive and we will follow with you. Paolo Ruiz MD
--- NOTE | 2017-03-08 02:29 | CON ---
DATE: 03/07/2017 REQUESTING PHYSICIAN: Dr. Calderon. REASON FOR CONSULTATION: I have bee asked to see this 61-year-old male with poorly controlled diabetes mellitus, hypertension, hyperlipidemia, chronic anemia who comes to the hospital with suprapubic pain and fever to 102 as well as dysuria and sense of incomplete bladder emptying, a bladder ultrasound shows urinary retention. CT scan of the abdomen and pelvis is negative for any acute changes. I have been asked to see this patient for anemia as his hemoglobin dropped from 10.1 on admission to the hospital 2 days ago to 8.5 g. Now he did receive several liters of IV fluids for dehydration. He denies any rectal bleeding, melena, nausea, vomiting or hematemesis. PAST MEDICAL HISTORY: Again is notable for poorly controlled type 2 diabetes mellitus, hypertension, hyperlipidemia, chronic anemia, history of gastric ulcer and GI malformation. Note; the patient had an endoscopy and colonoscopy approximately 3 years ago. PAST SURGICAL HISTORY: Unremarkable. SOCIAL HISTORY: He denies cigarette smoking or alcohol use. FAMILY HISTORY: Noncontributory. REVIEW OF SYSTEMS: A 14-point review of systems is positive for suprapubic pain, dysuria and urinary urgency. PHYSICAL EXAMINATION: GENERAL: Well-developed male lying in bed in no acute distress. VITAL SIGNS: Reveal temperature of 98.3, blood pressure 150/70 and heart rate of 88. HEENT: Reveal sclerae to be white. Conjunctivae pink. NECK: Supple. CHEST: Lungs clear. HEART: Reveals regular rate and rhythm. ABDOMEN: Soft, mild suprapubic tenderness. No rebound or guarding. EXTREMITIES: Show no edema. LABORATORY DATA: Reveal white blood cell count 8.4, platelet count of 190,000. Chemistries reveal blood sugar 356. Other electrolytes are normal. AST and ALT are normal. Alkaline phosphatase is 238. Stool for occult blood is positive. IMPRESSION: A 61-year-old male admitted to the hospital with suprapubic pain, fever to 102, dysuria, urinary frequency with urine cultures positive for Enterobacter cloacae. Clinically the patient has prostatitis. I suspect that the drop in his hemoglobin is from IV fluid administration and a delusional process. He denies any overt gastrointestinal bleeding. He does have heme-positive stool. 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 RECOMMENDATIONS: 1. Follow serial hematocrits. I suspect that the hemoglobin will stabilize. 2. The patient may receive nonsteroidals if needed. He is currently on Protonix 40 mg twice a day. 3. Advance the patient to call my office after his prostatitis resolves to schedule an endoscopy and possibly colonoscopy. Jefry Jesus MD
[2017-03-08] MEDS: Cefepime IV 2 gm in NS 2 GM/100 ML BAG IVPB SCH ×3 (05:21→21:59)
[2017-03-08] MEDS: Pantoprazole 40 mg EC Tab PO SCH ×2 (05:23→17:41)
[2017-03-08 08:02] LABS: BASO # 0.02 K/mm3 (0.0-2.0); BASO % 0.3 % (0.0-3.0); EOS # 0.3 (0.0-0.7); EOS % 3.8 % (1.5-5.0); GRAN # 4.71 (1.4-6.5); GRAN % 69.1 % (50.0-68.0); HEMATOCRIT 30.1 % (42.0-52.0); LYMPH # 1.3 (1.2-3.4); LYMPH % 19.2 % (22.0-35.0); MEAN CELL VOLUME 70.8 fl (80.0-105.0); MEAN CORPUSCULAR HEMOGLOBIN 22.4 pg (25.0-35.0); MEAN CORPUSCULAR HGB CONC 31.6 g/dl (31.0-37.0); MEAN PLATELET VOLUME 10.5 fl (7.0-11.0); MONO # 0.5 (0.1-0.6); MONO % 7.6 % (1.0-6.0); RED CELL DISTRIBUTION WIDTH 17.2 % (11.5-14.5); WHITE BLOOD COUNT 6.8 10^3/ul (4.5-11.0)
[2017-03-08] MEDS: Insulin Reg-HIGH-Coverage SC SCH ×4 (08:14→21:36)
--- NOTE | 2017-03-08 16:28 | PN ---
DATE: 03/08/2017 SUBJECTIVE: The patient is in bed in no acute distress, nontoxic. PHYSICAL EXAMINATION: VITAL SIGNS: Temperature is 98, blood pressure is 170/80, respiratory rate of 18. HEENT: Unremarkable. NECK: Supple. LUNGS: Decreased breath sounds. HEART: Normal S1, S2. ABDOMEN: Soft, nontender. LABORATORY DATA: Reveals a white count of 6.8, hemoglobin of 9. The patient's chemistries reveals the patient to have a BUN of 11, creatinine of 0.8. Urinalysis is noted and microbiology reveals Enterobacter cloacae species in the urine. The blood cultures are negative. Enterobacter cloacae species is pansensitive. Review of orders reveals the patient to be on cefepime. ASSESSMENT AND PLAN: This is a 61-year-old male with history of diabetes, dyslipidemia, hypertension, bilateral cataract surgery, with pain in urination with sepsis, Enterobacter cloacae urinary tract infection, must rule out prostatitis on cefepime, with a PSA of 7.8 consistent with prostatitis, and Enterobacter cloacae is sensitive to cefepime and Cipro. Relatively sensitive organism. Paolo Ruiz MD
--- NOTE | 2017-03-08 21:27 | PCM.URO ---
Urology Progress Note - Subjective Abdominal Pain: Yes Dysuria: Yes - Objective Lab Studies: Reviewed (no gu changes) Lab Results Last 24 Hours: Laboratory Results - last 24 hr 03/07/17 03/07/17 03/08/17 07:30 21:04 01:57 WBC RBC Hgb Hct MCV MCH MCHC RDW Plt Count MPV Gran % Lymph % (Auto) [place] % (Auto) Eos % (Auto) Baso % (Auto) Gran # Lymph # [place] # Eos # Baso # POC Glucose (mg/dL) 260 H 298 H Hemoglobin A1c 9.8 H 03/08/17 03/08/17 03/08/17 07:00 07:26 11:07 WBC 6.8 RBC 4.25 Hgb 9.5 L Hct 30.1 L MCV 70.8 L MCH 22.4 L MCHC 31.6 RDW 17.2 H Plt Count 254 MPV 10.5 Gran % 69.1 H Lymph % (Auto) 19.2 L [place] % (Auto) 7.6 H Eos % (Auto) 3.8 Baso % (Auto) 0.3 Gran # 4.71 Lymph # 1.3 [place] # 0.5 Eos # 0.3 Baso # 0.02 POC Glucose (mg/dL) 132 H 298 H Hemoglobin A1c 03/08/17 03/08/17 16:06 21:04 WBC RBC Hgb Hct MCV MCH MCHC RDW Plt Count MPV Gran % Lymph % (Auto) [place] % (Auto) Eos % (Auto) Baso % (Auto) Gran # Lymph # [place] # Eos # Baso # POC Glucose (mg/dL) 289 H 316 H Hemoglobin A1c Intake & Output: Intake & Output 03/08/17 03/08/17 03/09/17 06:59 18:59 06:59 Intake Total 800 Output Total 0 Balance 800 Intake: IV 200 Right Antecubital 200 Oral 600 Output: Stool 0 Other: # Voids Urine, Voided 1 # Bowel Movements 1 Vital Signs: Vital Signs - 24 hr 03/08/17 03/08/17 03/08/17 06:00 09:57 16:52 Temperature 98.7 F 98.2 F Pulse Rate 88 88 86 Respiratory 16 18 Rate Blood Pressure 160/74 H 174/81 H 151/73 H O2 Sat by Pulse 96 98 Oximetry
[2017-03-08] MEDS: Insulin Detemir 100 units/ml Vial (Levemir) SC SCH (21:36)
--- NOTE | 2017-03-09 02:34 | PN ---
DATE: We are seeing the patient at the request of Dr. Lacey. SUBJECTIVE: He is a 61-year-old male in some discomfort still from suspected prostatitis or overwhelming cystitis and has underlying type 2 diabetes mellitus, not fairly control. He seen at the bedside again, still with some discomfort on urination, but yesterday, we initiated Pyridium and he does notice that there was a slight improvement made maybe if we pressed him. Nevertheless, no fever spikes, and he is ambulatory and we are urging him to get out of bed a little bit more. We know that there was a consult from Dr. Ruiz earlier on this morning and then also a review yesterday from Dr. Jesus who does not plan on working up the current anemia that was uncovered on this admission, at least not as an inpatient. He has cleared us for the continued use of the Toradol for now as the antiinflammatory of choice in this acute state. Dr. Jin's note has not been updated today and we will reach out for him a little later as to plan of care as this is already for 3 days of IV antibiotics and we understand Infectious Disease is looking for a longer period of IV antibiotics, not yet determined. He is very cooperative and has no other complaints of new onset diarrhea, chills, or other changes. PAST MEDICAL HISTORY: As mentioned before, remarkable for type 2 diabetes mellitus and poor compliance overall. He has essential hypertension also that is fairly controlled and is on nephro protective LEXA inhibitor. His only discomfort is a 7/10 discomfort on urination despite the use of the Pyridium and he has noted the change in his urine as expected into orange. PHYSICAL EXAMINATION: GENERAL: Alert and oriented to all spheres. Well hydrated in the mucosa. VITAL SIGNS: For today, the vital signs seemed to be very adequate. His temperature 98.7 with no peaks yesterday, pulse rate of 88, blood pressure 174/81 this morning and perhaps, we will recommend increasing the dose of LEXA or adding a diuretic. On room air, his O2 sat is 96% and a respiratory rate of 18. He is comfortable, not tachycardic. NECK: Supple. No palpable lymphadenopathy. LUNGS: Clear to auscultation and percussion. He has no cough. HEART: Distant, but regular in rhythm. No S3 appreciated. ABDOMEN: Soft. Bowel sounds are present. No suprapubic tenderness. EXTREMITIES: Fail to show any edema. LABORATORY DATA: For this morning, a fingerstick of 132, so we were very pleased, but yesterday, he did have some peaks and we see that he is being covered with Humulin, so we make increase his Levemir to another 5 units. He is consuming about 75% of his meal. He is receiving Toradol, but only received 1 dose last night and none since then. Remarkably, his hemoglobin this morning is 9.5. We are pleased to see that he has not continued trending down. In fact, he has gone up from an 8.2, hematocrit is 30, WBC count is 6800, normal platelet count of 254. The retic count was normal. His TSH was 2.1 in the normal range, alkaline phosphatase, however, is slightly elevated and we are yet to see the PSA that was ordered by Dr. Lacey a little while back. O2 sat is diminished. Total iron also has low level with 19 reported yesterday. A1c is 9.8 as we expected since he is not very compliant with his diet and we expect the hemoglobin A1c will continue to rise as he has the infection. Other than our initiation of the Pyridium, there are no new drugs started and does say that the Tylenol is really not helpful. IMPRESSION: 1. Prostatitis versus cystitis, awaiting for further recommendations from Infectious Disease. 2. Type 2 diabetes mellitus, not well controlled. 3. Hypertension. 4. Dysuria. PLAN OF CARE: Encourage him to take more fluids, ambulate more as we explain to him he is at risk for DVT's if he remains in bed for prolonged periods of time and there is no fever although pain is recurrent and we will endorse to Dr. Lacey in the morning. Rad Calderon MD ANDREI
[2017-03-09] MEDS: Cefepime IV 2 gm in NS 2 GM/100 ML BAG IVPB SCH (05:17)
[2017-03-09] MEDS: Pantoprazole 40 mg EC Tab PO SCH ×2 (05:21→16:04)
[2017-03-09] MEDS: Insulin Reg-HIGH-Coverage SC SCH ×4 (07:37→22:24)
[2017-03-09 11:40] LABS: HEMATOCRIT 26.8 % (42.0-52.0); MEAN CELL VOLUME 71.3 fl (80.0-105.0); MEAN CORPUSCULAR HEMOGLOBIN 22.1 pg (25.0-35.0); MEAN PLATELET VOLUME 10.1 fl (7.0-11.0); RED CELL DISTRIBUTION WIDTH 17.2 % (11.5-14.5); WHITE BLOOD COUNT 4.9 10^3/ul (4.5-11.0)
[2017-03-09 11:49] LABS: ALB/GLOB RATIO 0.9 (1.1-1.8); ALKALINE PHOSPHATASE 286 U/L (38-126); ALT/SGPT 45 U/L (7-56); AST/SGOT 36 U/L (17-59); BILIRUBIN,TOTAL 0.6 mg/dL (0.2-1.3); BLOOD UREA NITROGEN 16 mg/dL (7-21); CALCIUM 9.1 mg/dL (8.4-10.5); CARBON DIOXIDE 26 mmol/L (21-33); CHLORIDE 102 mmol/L (98-107); GFR AFRICAN-AMERICAN > 60; POTASSIUM 4.6 mmol/L (3.6-5.0); SODIUM 136 mmol/L (132-148); TOTAL PROTEIN 6.7 g/dL (5.8-8.3)
[2017-03-09 11:57] LABS: GLUCOSE,RANDOM 333 mg/dL (70-110)
--- NOTE | 2017-03-09 12:21 | PN ---
DATE: 03/09/2017 SUBJECTIVE: The patient is lying in bed. His dysuria and pain with urination is less. OBJECTIVE: VITAL SIGNS: Reveal temperature of 97.9, blood pressure 160/81 and heart rate of 80. HEENT: Reveal sclerae to be white. Conjunctivae pale. NECK: Supple. CHEST: Lungs clear. HEART EXAM: Reveals a regular rate and rhythm. ABDOMEN: Soft and nontender. No mass. EXTREMITIES: Show no edema. LABORATORY DATA: Reveal hemoglobin is up to 9.5. Chemistries reveal blood sugar of 319. IMPRESSION: 1. Chronic anemia with a drop in his hemoglobin which is trending upwards, most likely secondary to IV fluids and dilution. He does have stool which is occult blood positive, but there is no clinical evidence of active GI bleeding. He did have an endoscopy and colonoscopy several years ago, which showed gastric ulcer and arteriovenous malformation at the GI tract. 2. Enterobacter urinary tract infection with prostatitis. RECOMMENDATIONS: The patient is to follow up with me as an outpatient as scheduled, repeat upper endoscopy. Jefry Jesus MD
[2017-03-09] MEDS: cefTRIAXone 2 GM IN NS 2 GM/100 ML BAG IVPB SCH (12:31)
--- NOTE | 2017-03-09 12:59 | PN ---
DATE: SUBJECTIVE: The patient continues with pain on urination 02/17. He is using Toradol frequently. He denies any abdominal pain. He has good appetite. He has normal bowel movement. PHYSICAL EXAMINATION: GENERAL: He is comfortable sitting in chair, alert, awake, and oriented. VITAL SIGNS: The patient is afebrile, temperature 97.9, pulse 77, blood pressure 165/83, and respiratory rate 20. HEENT: Head is normocephalic and atraumatic. Oral mucosa is moist. NECK: Supple. LUNGS: Clear to auscultation. HEART: Regular rhythm and rate. ABDOMEN: Soft, nontender, and nondistended. EXTREMITIES: With no edema. LABORATORY DATA: Labs from this morning are still pending. His urine culture final showed an Enterobacter sensitive to Maxipime. Blood cultures are negative. ASSESSMENT: 1. Acute prostatitis. 2. Persistent dysuria. 3. Anemia, iron deficiency. 4. Hypertension. 5. Type 2 diabetes mellitus. PLAN OF TREATMENT: Case was communicated with Dr. Jin who is planning cystoscopy today. If cystoscopy is done, he might be discharged home this afternoon if stable on p.o. antibiotics. If discharged home, we will continue on his chronic regimen with insulin, lisinopril, and atorvastatin. Emeli Arnold MD ANDREI
--- NOTE | 2017-03-09 13:04 | RAD ---
HISTORY: COMPARISON: 05/13/2014. TECHNIQUE: Chest PA and lateral FINDINGS: LINES AND TUBES: None. LUNG AND PLEURA: The lungs are well inflated and clear. HEART AND MEDIASTINUM: The heart is not enlarged. The hilar and mediastinal contours are within normal limits. SKELETAL STRUCTURES: The bony structures are within normal limits for the patient's age. VISUALIZED UPPER ABDOMEN: Normal. OTHER FINDINGS: None. IMPRESSION: No active pulmonary disease.
--- NOTE | 2017-03-09 14:09 | CP.PCM.PN ---
Subjective - Date & Time of Evaluation Date of Evaluation: 03/09/17 Time of Evaluation: 11:00 - Subjective Subjective: Comfortable, no fevers overnight. Less pain on urination. Objective - Vital Signs/Intake and Output Vital Signs (last 24 hours): Temp Pulse Resp BP Pulse Ox 97.9 F 80 20 160/81 H 98 03/09/17 08:36 03/09/17 10:11 03/09/17 08:36 03/09/17 10:11 03/09/17 08:36 Intake and Output: 03/09/17 03/09/17 06:59 18:59 Intake Total 500 Balance 500 - Medications Medications: Current Medications Acetaminophen (Tylenol 325mg Tab) 650 mg PO Q4H PRN PRN Reason: Fever >100.4 F Last Admin: 03/07/17 21:39 Dose: 650 mg Atorvastatin Calcium (Lipitor) 20 mg PO DIN [facility] [place] Last Admin: 03/08/17 17:41 Dose: 20 mg Hydrochlorothiazide (Microzide) 12.5 mg PO DAILY [facility] [place] Last Admin: 03/09/17 10:11 Dose: 12.5 mg Cefepime HCl (Maxipime 2gm) 2 gm in 100 mls @ 100 mls/hr IVPB Q8 JAVI PRN Reason: Protocol Stop: 03/11/17 14:01 Last Admin: 03/09/17 05:17 Dose: 100 mls/hr Insulin Detemir (Levemir) 30 unit SC HS [facility] [place] Last Admin: 03/08/17 21:36 Dose: 30 unit Insulin Human Regular (Humulin R High) 0 units SC ACHS [facility] [place] PRN Reason: Protocol Last Admin: 03/09/17 07:37 Dose: 2 units Ketorolac Tromethamine (Toradol) 15 mg IM Q6 PRN PRN Reason: Pain, moderate (4-7) Stop: 03/11/17 09:33 Last Admin: 03/09/17 07:38 Dose: 15 mg Lisinopril (Zestril) 30 mg PO DAILY [facility] [place] Last Admin: 03/09/17 10:11 Dose: 30 mg Metformin HCl (Glucophage) 1,000 mg PO BID [facility] [place] Last Admin: 03/09/17 10:11 Dose: 1,000 mg Pantoprazole Sodium (Protonix Ec Tab) 40 mg PO 0600,1600 [facility] [place] Last Admin: 03/09/17 05:21 Dose: 40 mg Phenazopyridine HCl (Pyridium) 200 mg PO PC [facility] [place] Last Admin: 03/09/17 10:10 Dose: 200 mg Tamsulosin HCl (Flomax) 0.4 mg PO DAILY [facility] [place] Last Admin: 03/09/17 10:10 Dose: 0.4 mg - Labs Labs: 03/08/17 07:00 03/07/17 08:00 - Constitutional Appears: Non-toxic, No Acute Distress - Head Exam Head Exam: NORMAL INSPECTION - ENT Exam ENT Exam: Mucous Membranes Moist - Neck Exam Neck Exam: absent: Meningismus - Respiratory Exam Respiratory Exam: Decreased Breath Sounds - Cardiovascular Exam Cardiovascular Exam: +S1, +S2 - GI/Abdominal Exam GI & Abdominal Exam: Soft. absent: Tenderness Assessment and Plan - Assessment and Plan (Free Text) Plan: Assessment Sepsis due to Enterobacter UTI R/O prostatitis DM dyslipidemia HTN history of bilateral cataract surgery Plan on cefepime day 4; blood cx are negative; reviewed CT A/P which did not show acute pathology PSA is elevated at 7.8 - follow up Urology evaluation -would recommend 3-4 weeks of total antibiotic therapy (can switch to PO Ciprofloxacin to complete therapy) will monitor clinically
[2017-03-09 21:15] LABS: TOTAL PSA 9.3 ng/mL (<=4.0)
[2017-03-09] MEDS ORDERED: Propofol 10 mg/ml Inj (20 ML) ONE (21:42)
--- NOTE | 2017-03-09 21:52 | CARD ---
APPROVED REPORT EKG Measurement Heart [id number] <Conclusion> Normal sinus rhythm Cannot rule out Anterior infarct, age undetermined Abnormal ECG
[2017-03-09] MEDS ORDERED: Iohexol 240 (50 ml) ONE (21:53)
[2017-03-09] MEDS: Insulin Detemir 100 units/ml Vial (Levemir) SC SCH (22:24)
[2017-03-09] MEDS: HYDROmorphone 0.5 mg/0.5 ml ISec ONE ×3 (22:30→22:43)
--- NOTE | 2017-03-09 22:33 | PCM.URO ---
Urology Progress Note - Objective Lab Results Last 24 Hours: Laboratory Results - last 24 hr 03/07/17 03/09/17 03/09/17 08:00 02:01 07:10 WBC RBC Hgb Hct MCV MCH MCHC RDW Plt Count MPV Sodium Potassium Chloride Carbon Dioxide Anion Gap BUN Creatinine Est GFR ( Amer) Est GFR (Non-Af Amer) POC Glucose (mg/dL) 184 H 175 H Random Glucose Calcium Total Bilirubin AST ALT Alkaline Phosphatase Total Protein Albumin Globulin Albumin/Globulin Ratio Free PSA 1.9 % Free PSA 20 L Total PSA 9.3 H Prostate Cancer Risk 20 03/09/17 03/09/17 03/09/17 11:03 11:30 11:30 WBC 4.9 D RBC 3.76 Hgb 8.3 L Hct 26.8 L MCV 71.3 L MCH 22.1 L MCHC 31.0 RDW 17.2 H Plt Count 218 MPV 10.1 Sodium 136 Potassium 4.6 Chloride 102 Carbon Dioxide 26 Anion Gap 13 BUN 16 Creatinine 0.9 Est GFR ( Amer) > 60 Est GFR (Non-Af Amer) > 60 POC Glucose (mg/dL) 319 H Random Glucose 333 H* D Calcium 9.1 Total Bilirubin 0.6 AST 36 ALT 45 Alkaline Phosphatase 286 H D Total Protein 6.7 Albumin 3.2 Globulin 3.5 Albumin/Globulin Ratio 0.9 L Free PSA % Free PSA Total PSA Prostate Cancer Risk 03/09/17 03/09/17 15:43 21:12 WBC RBC Hgb Hct MCV MCH MCHC RDW Plt Count MPV Sodium Potassium Chloride Carbon Dioxide Anion Gap BUN Creatinine Est GFR ( Amer) Est GFR (Non-Af Amer) POC Glucose (mg/dL) 123 H 143 H Random Glucose Calcium Total Bilirubin AST ALT Alkaline Phosphatase Total Protein Albumin Globulin Albumin/Globulin Ratio Free PSA % Free PSA Total PSA Prostate Cancer Risk Intake & Output: Intake & Output 03/09/17 03/09/17 03/10/17 06:59 18:59 06:59 Intake Total 500 540 0 Balance 500 540 0 Weight 140 lb Intake: IV 200 Left Hand 200 Oral 300 540 0 Other: # Voids Urine, Voided 1 3 1 # Bowel Movements 2 0 2 Vital Signs: Vital Signs - 24 hr 03/09/17 03/09/17 03/09/17 08:36 10:11 16:00 Temperature 97.9 F 98.4 F Pulse Rate 77 80 80 Respiratory 20 19 Rate Blood Pressure 165/83 H 160/81 H 156/74 H O2 Sat by Pulse 98 97 Oximetry
[2017-03-09] MEDS ORDERED: HYDROmorphone 0.5 mg/0.5 ml ISec IVP PRN (22:34)
[2017-03-09] MEDS ORDERED: Lactated Ringer's 1,000 ML IV SCH (22:45)
[2017-03-10] MEDS: HYDROmorphone 0.5 mg/0.5 ml ISec IVP PRN ×3 (01:26→13:10)
[2017-03-10] MEDS: Pantoprazole 40 mg EC Tab PO SCH ×2 (05:26→17:41)
[2017-03-10] MEDS: Insulin Reg-HIGH-Coverage SC SCH ×4 (09:55→23:16)
[2017-03-10 10:21] LABS: HEMATOCRIT 29.8 % (42.0-52.0); MEAN CELL VOLUME 70.6 fl (80.0-105.0); MEAN CORPUSCULAR HEMOGLOBIN 22.5 pg (25.0-35.0); MEAN CORPUSCULAR HGB CONC 31.9 g/dl (31.0-37.0); MEAN PLATELET VOLUME 9.6 fl (7.0-11.0); RED CELL DISTRIBUTION WIDTH 17.2 % (11.5-14.5); WHITE BLOOD COUNT 13.8 10^3/ul (4.5-11.0)
[2017-03-10 10:31] LABS: ALKALINE PHOSPHATASE 304 U/L (38-126); ALT/SGPT 42 U/L (7-56); AST/SGOT 45 U/L (17-59); BLOOD UREA NITROGEN 17 mg/dL (7-21); CALCIUM 9.5 mg/dL (8.4-10.5); CARBON DIOXIDE 20 mmol/L (21-33); CHLORIDE 97 mmol/L (98-107); GFR AFRICAN-AMERICAN > 60; POTASSIUM 4.6 mmol/L (3.6-5.0); SODIUM 133 mmol/L (132-148); TOTAL PROTEIN 7.5 g/dL (5.8-8.3)
[2017-03-10 10:42] LABS: GLUCOSE,RANDOM 329 mg/dL (70-110)
--- NOTE | 2017-03-10 11:24 | RAD ---
PROCEDURE: Cystogram HISTORY: HEMATURIA / BILATERAL RETROGRADES COMPARISON: TECHNIQUE: Fluoroscopy was provided in the operating room. 4 seconds of fluoroscopy time. 6 images were submitted FINDINGS: The study shows a cystoscope in place with opacification of the bladder. IMPRESSION: As above
[2017-03-10] MEDS: cefTRIAXone 2 GM IN NS 2 GM/100 ML BAG IVPB SCH (12:16)
--- NOTE | 2017-03-10 12:21 | PN ---
DATE: SUBJECTIVE: The patient continues with suprapubic pain, severe this morning. He feels distended. The patient underwent cystoscopy yesterday with finding of acute urinary tract infection. He has gross hematuria this morning. PHYSICAL EXAMINATION GENERAL: He is in bed uncomfortable due to abdominal pain. VITAL SIGNS: Stable. Temperature 98.4, pulse 90, blood pressure 168/70, respiratory rate 20. HEENT: Head normocephalic and atraumatic. Oral mucosa moist. NECK: Supple. CARDIOPULMONARY: Regular rhythm and rate. LUNGS: Clear to auscultation. ABDOMEN: Distended and tender in right suprapubic area. Naylor catheter with gross hematuria, empty since this morning. EXTREMITIES: No edema. LABORATORY DATA: His CBC yesterday showed normal WBC 6.8, his hemoglobin dropped again to 8.3 yesterday with hematocrit 26.8, his platelet count is normal 218,000. Chemistry showed normal electrolytes and normal renal function. His glucose remains elevated and fluctuating between 120 to 330. Blood cultures are negative after 4 days. Urine culture is positive for Enterobacter. ASSESSMENT: 1. Acute prostatitis. 2. Urinary tract infection with positive Enterobacter in the urine, persistent dysuria and gross hematuria this morning, status post cystoscopy yesterday. 3. Urinary retention. 4. Anemia with iron deficiency. 5. Type 2 diabetes mellitus. 6. Hypertension. PLAN OF TREATMENT: We will scan the bladder. The patient will need bladder irrigation. We will discuss with urologist. Presently on Rocephin, but can be switched to oral Cipro if discharged home. Emeli Arnold MD AND[facility]
--- NOTE | 2017-03-10 13:30 | CP.PCM.PN ---
Subjective - Date & Time of Evaluation Date of Evaluation: 03/10/17 Time of Evaluation: 11:40 - Subjective Subjective: Less dysuria, no fevers overnight. Objective - Vital Signs/Intake and Output Vital Signs (last 24 hours): Temp Pulse Resp BP Pulse Ox 98.4 F 95 H 20 209/84 H 93 L 03/10/17 08:45 03/10/17 09:50 03/10/17 08:45 03/10/17 09:50 03/10/17 08:45 Intake and Output: 03/10/17 03/10/17 06:59 18:59 Intake Total 0 Balance 0 - Medications Medications: Current Medications Acetaminophen (Tylenol 325mg Tab) 650 mg PO Q4H PRN PRN Reason: Fever >100.4 F Last Admin: 03/07/17 21:39 Dose: 650 mg Atorvastatin Calcium (Lipitor) 20 mg PO DIN [facility] Last Admin: 03/09/17 18:14 Dose: 20 mg Glipizide (Glucotrol) 10 mg PO 0730,1630 [facility] Last Admin: 03/10/17 09:50 Dose: 10 mg Hydrochlorothiazide (Microzide) 12.5 mg PO DAILY [facility] Last Admin: 03/10/17 09:49 Dose: 12.5 mg Hydromorphone HCl (Dilaudid) 1 mg IVP Q4H PRN PRN Reason: Pain, moderate (4-7) Last Admin: 03/10/17 09:06 Dose: 1 mg Ceftriaxone Sodium (Rocephin 2 Gm Ivpb) 2 gm in 100 mls @ 100 mls/hr IVPB DAILY [facility] PRN Reason: Protocol Last Admin: 03/09/17 12:31 Dose: 100 mls/hr Insulin Detemir (Levemir) 30 unit SC HS [facility] Last Admin: 03/09/17 22:24 Dose: Not Given Insulin Human Regular (Humulin R High) 0 units SC ACHS [facility] PRN Reason: Protocol Last Admin: 03/10/17 09:55 Dose: Not Given Lisinopril (Zestril) 30 mg PO DAILY [facility] Last Admin: 03/10/17 09:50 Dose: 30 mg Metformin HCl (Glucophage) 1,000 mg PO BID [facility] Last Admin: 03/10/17 09:50 Dose: 1,000 mg Pantoprazole Sodium (Protonix Ec Tab) 40 mg PO 0600,1600 [facility] Last Admin: 03/10/17 05:26 Dose: 40 mg Phenazopyridine HCl (Pyridium) 200 mg PO PC [facility] Last Admin: 03/10/17 09:49 Dose: 200 mg Tamsulosin HCl (Flomax) 0.4 mg PO DAILY [facility] Last Admin: 03/10/17 09:50 Dose: 0.4 mg - Labs Labs: 03/10/17 10:10 03/10/17 10:10 - Constitutional Appears: Non-toxic - Head Exam Head Exam: NORMAL INSPECTION - ENT Exam ENT Exam: Mucous Membranes Moist - Neck Exam Neck Exam: absent: Meningismus - Respiratory Exam Respiratory Exam: Decreased Breath Sounds - Cardiovascular Exam Cardiovascular Exam: +S1, +S2 - GI/Abdominal Exam GI & Abdominal Exam: Soft. absent: Tenderness Assessment and Plan - Assessment and Plan (Free Text) Plan: Assessment Sepsis due to Enterobacter UTI R/O prostatitis DM dyslipidemia HTN history of bilateral cataract surgery Plan on cefepime day 4; blood cx are negative; reviewed CT A/P which did not show acute pathology PSA is elevated at 7.8 - follow up Urology evaluation -would recommend 3-4 weeks of total antibiotic therapy (can switch to PO Ciprofloxacin to complete therapy) will continue to monitor clinically
--- NOTE | 2017-03-10 15:07 | PN ---
DATE: 03/10/2017 SUBJECTIVE: The patient is walking around in his room. He still states that he has difficulty voiding urine. He still has dysuria and painful urination. He denies any rectal bleeding or melena. PHYSICAL EXAMINATION: VITAL SIGNS: Reveal temperature of 98.4, blood pressure 209/84, heart rate 95. HEENT: Reveal sclerae to be white. Conjunctivae pink. NECK: Supple. CHEST: Reveal lungs to be clear. HEART: Reveals regular rate and rhythm. ABDOMEN: Soft, nontender. No mass. EXTREMITIES: Show no edema. LABORATORY DATA: Reveal white blood cell count 13.8, hemoglobin 9.5. Chemistries reveal blood sugar 360. IMPRESSION: 1. Prostatitis. 2. Anemia of chronic disease. 3. Heme-positive stool with no overt gastrointestinal bleeding. RECOMMENDATIONS: 1. Continue treatment as per Urology. 2. Outpatient endoscopy. Jefry Jesus MD
[2017-03-10] MEDS: HYDROmorphone 1 mg/ml ISec IVP PRN ×2 (18:21→21:59)
[2017-03-10] MEDS: Insulin Detemir 100 units/ml Vial (Levemir) SC SCH (21:58)
[2017-03-11] MEDS: HYDROmorphone 1 mg/ml ISec IVP PRN ×2 (03:29→09:40)
[2017-03-11] MEDS: Pantoprazole 40 mg EC Tab PO SCH ×2 (05:31→16:45)
[2017-03-11] MEDS: Insulin Reg-HIGH-Coverage SC SCH ×4 (08:46→21:58)
[2017-03-11] MEDS: cefTRIAXone 2 GM IN NS 2 GM/100 ML BAG IVPB SCH (09:43)
--- NOTE | 2017-03-11 14:05 | US ---
PROCEDURE: HISTORY: retention COMPARISON: 03/06/2017 TECHNIQUE: Transabdominal imaging of the bladder with color Doppler FINDINGS: Bladder is moderately distended. No intra luminal suspect mass. There is floating debris within the bladder. No bladder wall thickening. Bilateral ureteral jets noted. Prevoid urine volume 1010 mL Postvoid urine volume 930 mL. Of note is the recent postvoid residual was only 150 cc. . Prostate 3.7 x 3.6 x 5.3 cm - 37.0 mL - mild prostatic enlargement suggested. Slight differences in measurement between the recent 2 exams is probably technical. IMPRESSION: The postvoid residual urine volume is greater than that suggested previously. Currently this is 930 mL listed appears a patient could not void to any significant degree at this setting. Within the bladder, intraluminal debris is now suggested. Prostate volume slightly greater. Mild prostatic enlargement is believed present. The differences between the 2 exam measurements are likely technical.
[2017-03-11] MEDS ORDERED: Insulin Detemir 100 units/ml Vial (Levemir) SC SCH (15:32)
[2017-03-11] MEDS ORDERED: Magnesium Hydroxide Susp 30 ml UD PO ONE (16:04)
[2017-03-11] MEDS: Oxycodone/Acetaminophen 5/325 mg Tab PO PRN (16:45)
--- NOTE | 2017-03-11 18:37 | PN ---
DATE: 03/11/2017 SUBJECTIVE: The patient still complains of painful, difficult urination now with gross hematuria. He denies any abdominal pain, rectal bleeding or melena. PHYSICAL EXAMINATION: VITAL SIGNS: Reveal temperature of 97.7, blood pressure 147/72, heart rate 98. HEENT: Reveal sclerae to be white. Conjunctivae pink. NECK: Supple. CHEST: Reveal lungs to be clear. HEART: Exam reveals a regular rate and rhythm. ABDOMEN: Soft, nontender. EXTREMITIES: Show no edema. LABORATORY DATA: No new laboratory data are available. IMPRESSION: 1. A 61-year-old male with prostatitis, painful urination now with hematuria. 2. Anemia most likely of chronic disease. 3. Heme-positive stool, history of gastrointestinal angiodysplasia. His hemoglobin has been stable over the last several days. RECOMMENDATIONS: The patient will follow up with me as an outpatient for elective endoscopy. Jefry Jesus MD
--- NOTE | 2017-03-11 22:28 | PN ---
DATE: SUBJECTIVE: The patient continues with difficulty of urination and urinary retention. His bladder scan this morning showed 930 mL of urine. He complains of suprapubic vein. PHYSICAL EXAMINATION: GENERAL: The patient is comfortable, sitting in the chair, alert, awake, oriented. VITAL SIGNS: Stable. He is afebrile. Temperature 98.2, blood pressure 128/65, pulse 87, respiratory rate 20. HEENT: Head is normocephalic and atraumatic. Oral mucosa is moist. NECK: Supple. HEART: With regular rhythm and rate. LUNGS: Clear to auscultation. ABDOMEN: Soft. There is some suprapubic tenderness and fullness. EXTREMITIES: With no edema. DIAGNOSTIC TESTS: WBC 7.8, hemoglobin 9.5, hematocrit 29.8. His chemistry was normal. The patient's sugar remains very high and ranged between 250 to 330. His PSA was elevated. ASSESSMENT: 1. Urinary retention. 2. Acute prostatitis. 3. Urinary tract infection with Enterobacter. 4. Anemia with iron deficiency, urinalysis stable. 5. Type 2 diabetes mellitus. 6. Hypertension. PLAN OF TREATMENT: Case was discussed with urologist. We will reinsert Naylor catheter and keep Naylor catheter for now. The patient will be maintained on Cipro 500 mg twice a day for another 3 to 4 weeks. We will continue tamsulosin. We will continue Dilaudid as needed for pain. The patient's diabetes therapy will require some Levemir adjustment. We will increase the dose to 30 units at night and 15 units in the morning. We will continue metformin and glipizide. Emeli Arnold MD [facility]
--- NOTE | 2017-03-12 01:35 | PN ---
DATE: 03/11/2017 SUBJECTIVE: The patient is in bed, in no acute distress, nontoxic. PHYSICAL EXAMINATION: VITAL SIGNS: Temperature is 98, blood pressure is 140/70, respiratory rate of 18. HEENT: Unremarkable. NECK: Supple. LUNGS: Decreased breath sounds. HEART: Normal S1 and S2. ABDOMEN: Soft. LABORATORY DATA: Reveals white count of 13,800; hemoglobin of 9. Chemistries are noted. Urinalysis is noted and microbiology reveals Enterobacter cloacae species in the urine. The blood culture has no growth. Enterobacter cloacae is pansensitive. ASSESSMENT AND PLAN: A 61-year-old male who was seen early this morning in [facility], bed 1 with sepsis with Enterobacter urinary tract infection; diabetes mellitus; dyslipidemia; hypertension and on day #5 of cefepime. The patient diagnosis of prostatitis with an elevated PSA, may switch to p.o Cipro to complete therapy, would complete 3 to 4 weeks of therapy for prostatitis. Review of the orders reveal the patient to be on p.o. Cipro at this point. We will follow with you. Paolo Ruiz MD
[2017-03-12] MEDS: Pantoprazole 40 mg EC Tab PO SCH (05:09)
[2017-03-12] MEDS: Oxycodone/Acetaminophen 5/325 mg Tab PO PRN ×2 (05:09→11:25)
[2017-03-12 06:19] LABS: HEMATOCRIT 25.9 % (42.0-52.0); MEAN CELL VOLUME 71.9 fl (80.0-105.0); MEAN CORPUSCULAR HEMOGLOBIN 22.2 pg (25.0-35.0); MEAN CORPUSCULAR HGB CONC 30.9 g/dl (31.0-37.0); MEAN PLATELET VOLUME 10.2 fl (7.0-11.0); RED CELL DISTRIBUTION WIDTH 17.3 % (11.5-14.5); WHITE BLOOD COUNT 8.6 10^3/ul (4.5-11.0)
[2017-03-12 06:40] LABS: ALB/GLOB RATIO 0.9 (1.1-1.8); ALKALINE PHOSPHATASE 241 U/L (38-126); ALT/SGPT 36 U/L (7-56); AST/SGOT 34 U/L (17-59); BILIRUBIN,TOTAL 0.5 mg/dL (0.2-1.3); BLOOD UREA NITROGEN 26 mg/dL (7-21); CALCIUM 9.2 mg/dL (8.4-10.5); CARBON DIOXIDE 30 mmol/L (21-33); CHLORIDE 99 mmol/L (98-107); GFR AFRICAN-AMERICAN > 60; GLUCOSE,RANDOM 246 mg/dL (70-110); POTASSIUM 3.7 mmol/L (3.6-5.0); SODIUM 136 mmol/L (132-148); TOTAL PROTEIN 6.6 g/dL (5.8-8.3)
[2017-03-12 08:41] VITALS: BP 140/70; PULSE 92; RESP 20; TEMP 98.6; O2SAT 96
[2017-03-12] MEDS: Insulin Reg-HIGH-Coverage SC SCH ×2 (09:21→12:10)
[2017-03-12] MEDS ORDERED: Iron Sucrose 100 mg/5 ml Inj IVP ONE (09:45)
--- NOTE | 2017-03-12 11:54 | PN ---
DATE: 03/12/2017 SUBJECTIVE: The patient is lying in bed comfortable. He still has some dysuria and pain in his suprapubic area. He as an indwelling Naylor catheter. PHYSICAL EXAMINATION: VITAL SIGNS: Reveal temperature of 98.6, blood pressure of 140/70, and heart rate of 92. HEENT: Reveals sclerae to be white. Conjunctivae are pale. NECK: Supple. CHEST: Lungs clear. HEART: Exam reveals regular rate and rhythm. GASTROINTESTINAL: Abdomen is soft and nontender. EXTREMITIES: Show no edema. LABORATORY DATA: Revealed white blood cell count of 8.6, hemoglobin down to 88, BUN of 26, creatinine of 0.8, and blood sugar of 246. IMPRESSION: 1, Anemia, multifactorial including anemia of chronic disease and hematuria. He did have heme-positive stools, but there is no evidence of overt gastrointestinal bleeding at this time. 2. Urinary retention. 3. Prostatitis. RECOMMENDATIONS 1. Continue iron replacement. 2. Follow serial hematocrits. 3. Outpatient endoscopy. Jefry Jesus MD
--- NOTE | 2017-03-13 00:12 | PN ---
DATE: 03/12/2017 SUBJECTIVE: The patient is in bed, in no acute distress, nontoxic. The patient was seen early this morning in room 371, bed 1. PHYSICAL EXAMINATION VITAL SIGNS: Temperature 98, blood pressure 120/70, respiratory rate 16. HEENT: Unremarkable. NECK: Supple. LUNGS: Decreased breath sound. HEART: Normal S1 and S2. ABDOMEN: Soft, nontender. LABORATORY DATA: Reveals white count of 8.6, hemoglobin of 8, platelets of 233. Chemistry revealed BUN of 26, creatinine of 0.8 and the PSA is reported at 7.8. Urinalysis is noted and stool for occult blood is positive. Urine culture is positive Enterobacter cloacae and it is sensitive to Cipro. ASSESSMENT AND PLAN: He is a 61-year-old male with early this morning in 371, bed 1 with sepsis, Enterobacter, urinary tract infection, diabetes mellitus, dyslipidemia, hypertension, day #6 of cefepime and the patient has prostatitis, may switched to p.o. Cipro and complete 3 to 4 weeks. The patient was seen early this morning. The patient was doing well. We will follow closely with you. The patient should follow up as an outpatient also. Paolo Ruiz MD
--- NOTE | 2017-04-23 08:25 | DS ---
PRIMARY DIAGNOSIS: Acute prostatitis. SECONDARY DIAGNOSES: 1. Urinary tract infection with Enterobacter. 2. Benign prostatic hypertrophy. 3. Acute prostatitis. 4. Urinary tract infection. 5. Anemia. 6. Iron deficiency. 7. Type 2 diabetes mellitus. 8. Hypertension. SUBJECTIVE: The patient is 61-year-old male with history of type 2 diabetes mellitus was admitted for new onset of fever and difficulty of urination with suprapubic pain. The patient was found to have urinary tract infection positive for Enterobacter. He was treated with IV Rocephin and cefepime. The patient was evaluated by Urologist and Infectious Disease specialist. PHYSICAL EXAMINATION: VITAL SIGNS: On discharge, vitals stable. Temperature 98.6, pulse 92, blood pressure 140/70, and respiratory rate 20. His oxygen saturation was 98%. GENERAL: He was comfortable, alert, awake, and oriented. HEENT: Head is normocephalic and atraumatic. Oral mucosa was moist. NECK: Supple. LUNGS: Clear to auscultation. HEART: Regular rhythm and rate. ABDOMEN: Soft, nontender, and nondistended. Naylor catheter intact draining clear urine. EXTREMITIES: With no edema, cyanosis, or clubbing. HOSPITAL COURSE: Significant for problem with urination. The patient had Naylor catheter inserted, it was draining bloody urine. The patient's evaluation by Urologist consisted of a cystoscopy. After the cystoscopy, unfortunately, the patient continues to have severe pain and dysuria. His catheter needed to be inserted due to urinary distention and retention. His condition; however, improved with IV antibiotics . Follow up labs were significant for dropped hemoglobin and stool positive for guaiac-positive. Registered Dental Hygienist was consulted, he recommended only close observation and monitoring. The patient was treated with Protonix for GI protection. The patient was discharged home in stable condition, changed to oral antibiotics Cipro 500 mg twice a day. Recommended to finish a 3 weeks of therapy by Infectious Disease specialist. He was continued on his chronic medications lisinopril 30 mg, Insulin Levemir 15 units in the morning and 30 units at night with regular insulin, Novolog 15 units with meals. He was also continued atorvastatin 40 mg daily for cholesterol . He was advised to followup with primary care doctor in a week and with Urologist to start the treatment. Emeli Arnold MD MTDFlaquita
--- NOTE | 2017-05-07 21:17 | PN ---
DATE: 03/12/2017 UROLOGY POSTOP NOTE SUBJECTIVE: See the history and physical and operative report and consultation. The patient is now in the recovery room. PHYSICAL EXAMINATION VITAL SIGNS: Within normal limits. ABDOMEN: Soft. Naylor catheter in place. DIAGNOSIS: voiding dysfunction. PLAN: Maintain Naylor catheter. Shekhar Jin MD
--- NOTE | 2017-05-08 03:46 | OP ---
UROLOGY OPERATIVE NOTE PREOPERATIVE DIAGNOSES: Gross hematuria, voiding dysfunction, urinary retention. POSTOPERATIVE DIAGNOSES: Gross hematuria, voiding dysfunction, urinary retention. PROCEDURE: Cystoscopy, biopsy, and fulguration. SPECIMEN SENT: Bladder neck. COMPLICATIONS: There were no complications. BLOOD LOSS: Less than 25 mL. INDICATIONS: See history and physical for further details in consultation. This is a very pleasant gentleman, who we know quite well, patient of Dr. Rad Calderon, [place], [place], comes in with gross hematuria and voiding dysfunction. We discussed options. We discussed timing, location, etc. After discussing all those options, he is here now for the above procedure. NAME OF PROCEDURE: Cystoscopy with biopsy and fulguration. FINDINGS: Normal anterior urethra. No strictures. Verumontanum is visually occlusive large prostate about 3 cm in size and visually occlusive and juicy. There is no definite bladder cancer, although some abnormal mucosa, but again this could be secondary to the Naylor, could be secondary to multiple issues. We evacuated some clots. No other major abnormalities are detected. See addendum at the end. INDICATIONS: See history and physical for further details in consultation. This is a very pleasant gentleman here for the above procedure. He has been bleeding. We discussed options, timing etc. The patient is in retention. He has been trying to say he is okay, but every time we checked his residual, it was tremendously high. After many long discussion with the patient, finally he allowed us to perform the above listed test procedure. See the addendum at the end, because I am going to recommend further treatments. DESCRIPTION OF PROCEDURE: After obtaining informed consent, the patient was placed on the table. Routine monitor was placed. Time-out was called to confirm on the table. The patient was placed on the table. Routine monitor was placed. Time out was called, antibiotics etc. We confirmed the patient's positioning and with the time-out confirmed everything. The procedure begin in the following session: Cystoscope introduced via urethra. The old Naylor catheter was removed and cystoscope via urethra. Normal anterior urethra. No strictures. Verumontanum is visually occlusive. There is a very large occlusive prostate about 3 cm plus in size. There is no definite malignancy seen. There is a significant amount of abnormal mucosa. At this point, we irrigated a little bit. We then performed a biopsy at the bladder neck at abnormal region, which fairly bled, multiple pictures were taken. We then fulgurated, we inserted Naylor catheter via the urethra. Overall patient tolerated rectal exam, he had 30 gm to 40 gm prostate. The patient tolerated the procedure well without complications. No complications. ADDENDUM: Our recommendation is going to be to have a some kind of procedure, may be even an open procedure. The patient has somewhat been hesitant, but I am very concerned for the patient. The other thing is I am also concerned with the presence of bleeding, gross hematuria, voiding dysfunction, underlying malignancy needs to be entertained significantly. Further plans will follow. Shekhar Jin MD
== END 2017-03-12 15:30 | disposition home or self-care (01) | DRG 898 ==
LOC: ED 13:14 → ERH 16:39 → 3RSO 18:00
PROVIDERS: ADMIT Family Medicine; ATTEND Family Medicine
PROC: 0TBB8ZX Excision of Bladder, Via Natural or Artificial Opening Endoscopic, Diagnostic (ICD-10-PCS; principal; 2017-03-09 14:15)
DX: A41.59 Other Gram-negative sepsis (principal); E11.65 Type 2 diabetes mellitus with hyperglycemia; E11.69 Type 2 diabetes mellitus with other specified complication; N39.0 Urinary tract infection, site not specified; D50.9 Iron deficiency anemia, unspecified; D53.9 Nutritional anemia, unspecified; D63.8 Anemia in other chronic diseases classified elsewhere; E78.00 Pure hypercholesterolemia, unspecified; E78.5 Hyperlipidemia, unspecified; E86.0 Dehydration; H54.7 Unspecified visual loss; I10 Essential (primary) hypertension; K25.9 Gastric ulcer, unspecified as acute or chronic, without hemorrhage or perforation; K59.00 Constipation, unspecified; N41.0 Acute prostatitis; R31.0 Gross hematuria; Z87.11 Personal history of peptic ulcer disease; R40.2412 Glasgow coma scale score 13-15, at arrival to emergency department; Z98.42 Cataract extraction status, left eye; Z98.41 Cataract extraction status, right eye; R19.5 Other fecal abnormalities

== ENCOUNTER 2017-03-25 06:11 | Day surgery (SDC) | payer MEDICAID ==
[2017-03-25 06:44] LABS: BASO # 0.02 K/mm3 (0.0-2.0); BASO % 0.6 % (0.0-3.0); EOS # 0.1 (0.0-0.7); GRAN # 1.84 (1.4-6.5); GRAN % 55.7 % (50.0-68.0); HEMATOCRIT 32.3 % (42.0-52.0); LYMPH # 1.1 (1.2-3.4); LYMPH % 33.8 % (22.0-35.0); MEAN CELL VOLUME 73.6 fl (80.0-105.0); MEAN CORPUSCULAR HEMOGLOBIN 22.8 pg (25.0-35.0); MEAN PLATELET VOLUME 10.4 fl (7.0-11.0); MONO # 0.2 (0.1-0.6); MONO % 6.9 % (1.0-6.0); RED CELL DISTRIBUTION WIDTH 19.4 % (11.5-14.5); WHITE BLOOD COUNT 3.3 10^3/ul (4.5-11.0)
[2017-03-25] MEDS ORDERED: cefTRIAXone (Rocephin) 1 gm Inj ONE (07:26)
[2017-03-25] MEDS ORDERED: Liquid Adhesive TOP ONE (07:26)
[2017-03-25] MEDS ORDERED: Morphine 2 mg/ml ISec IVP PRN (07:40)
[2017-03-25] MEDS ORDERED: Lactated Ringer's 1,000 ML IV SCH (07:45)
[2017-03-25] MEDS ORDERED: Propofol 10 mg/ml Inj (20 ML) ONE (08:11)
[2017-03-25] MEDS ORDERED: Midazolam 2 MG/2 ML VIAL ONE (08:12)
[2017-03-25] MEDS ORDERED: Ciprofloxacin 400mg/200ml D5W 400 MG/200 ML BAG IVPB STA (14:15)
[2017-03-25] MEDS ORDERED: Gentamicin 160 MG in Sodium Chloride 0.9% 100 ML IVPB SCH (14:15)
[2017-03-25] MEDS ORDERED: Oxycodone/Acetaminophen 5/325 mg Tab PO PRN (14:16)
[2017-03-25] MEDS ORDERED: Ciprofloxacin 400mg/200ml D5W IVPB ONE (14:45)
[2017-03-25 16:09] VITALS: RESP 20; O2SAT 96
[2017-03-25] MEDS: Insulin Reg-MEDIUM-Coverage SC SCH (21:33)
[2017-03-25] MEDS: Lactated Ringer's 1,000 ML IV SCH (21:43)
[2017-03-25] MEDS ORDERED: Insulin Detemir 100 units/ml Vial (Levemir) SC SCH (22:00)
[2017-03-26] MEDS: Lactated Ringer's 1,000 ML IV SCH (02:39)
[2017-03-26 07:15] VITALS: BP 134/66; PULSE 90; TEMP 99
[2017-03-26] MEDS: Insulin Reg-MEDIUM-Coverage SC SCH ×2 (08:30→12:54)
--- NOTE | 2017-05-08 06:27 | PN ---
DATE: UROLOGY POSTOPERATIVE NOTE SUBJECTIVE: The patient underwent an endoscopic prostatectomy. PHYSICAL EXAMINATION: Vital signs are noted now. The patient has a Naylor catheter, draining relatively clear urine. DIAGNOSES: Urinary retention and voiding dysfunction. His postoperative course remains stable. Shekhar Jin MD
--- NOTE | 2017-05-08 07:15 | OP ---
PROCEDURE DATE: 03/25/2017 UROLOGY OPERATIVE REPORT PREOPERATIVE DIAGNOSES: Urinary retention, voiding dysfunction, and gross hematuria. POSTOPERATIVE DIAGNOSES: Urinary retention, voiding dysfunction, and gross hematuria. PROCEDURE: TURP. ESTIMATED BLOOD LOSS: Less than 25 mL. COMPLICATIONS: There were no complications. INDICATIONS: See history and physical for further details. A very pleasant gentleman, who we have discussed the options. He previously had a cysto evacuation of clots with biopsy with no malignancies. He has voiding dysfunction and urinary retention. We discussed options. We did multiple voiding trials. He does not quite empty his bladder perfectly. He is in retention with gross hematuria. We discussed the options. After discussing the options, he is here now for the above-listed procedure. The patient was prepped in usual sterile fashion. The patient was brought to the OR. At the termination of the procedure, the procedure was wide open. The prostate was wide open from verumontanum. DESCRIPTION OF PROCEDURE: After obtaining informed consent, the patient was placed on the table. Routine monitors were placed. Time-outs were called. I explained to the patient specifically retrograde ejaculation, anejaculation, different terms that he should be familiar with. I described from this procedure that about 30% to 40% of patients do not have fluid with ejaculation and this is very often permanent risk, not even a risk, it is almost an expectation. We discussed the options at random. After discussing it at length, the patient is here now for the above procedure. After obtaining informed consent, the patient was placed on the table, routine monitors were placed. Time-outs were called to confirm the patient positioning, we introduced under direct vision the scope. The patient also had Venodyne boots on. Generally I put that in for thoroughness. We identified the landmarks. The veru was identified. The prostate was visually occlusive and really juicy and large. The ureter was identified. We now began between 5 and 7, we turned our attention from 7 to 11 and then 5 to 1. Then we did the roof. We kept checking all landmarks, orificies, veru, etc., no abnormalities detected. The Naylor catheter was left with some mild traction to drainage. The patient was brought to the recovery room in stable condition. The patient tolerated the procedure without complications.. Shekhar Jin MD
== END 2017-03-26 13:39 | disposition home or self-care (01) ==
LOC: SDS 06:11 → 3RNO 15:15 → SDS 03-26 13:39
PROVIDERS: ATTEND Urology
DX: N40.1 Benign prostatic hyperplasia with lower urinary tract symptoms (principal); R33.8 Other retention of urine; R31.0 Gross hematuria; E11.9 Type 2 diabetes mellitus without complications; I10 Essential (primary) hypertension; E78.5 Hyperlipidemia, unspecified
CPT/HCPCS: 36415; 52648; 82948 ×2; 85025; J0696; J0744; J1580; J2001; J2250; J2270 ×2; J2405; J2704; J3010; J7030; J7120 ×2

== ENCOUNTER 2017-09-17 11:52 | Day surgery (SDC) | payer MEDICAID ==
[2017-09-09 12:49] VITALS: BMI 25.7
[2017-09-17] MEDS ORDERED: Propofol 10 mg/ml Inj (20 ML) ONE ×3 (12:52→15:17)
[2017-09-17] MEDS ORDERED: Sodium Chloride 0.9% 1,000 ML IV SCH (13:45)
[2017-09-17 16:07] VITALS: O2SAT 99
[2017-09-17 17:30] VITALS: BP 150/71; PULSE 61; RESP 16; TEMP 97.4
== END 2017-09-17 17:57 | disposition home or self-care (01) ==
LOC: ENDO 11:52
PROVIDERS: ATTEND Internal Medicine
DX: D50.9 Iron deficiency anemia, unspecified (principal); D12.2 Benign neoplasm of ascending colon; K29.50 Unspecified chronic gastritis without bleeding; D12.0 Benign neoplasm of cecum; K55.20 Angiodysplasia of colon without hemorrhage; K64.8 Other hemorrhoids; K44.9 Diaphragmatic hernia without obstruction or gangrene; K21.9 Gastro-esophageal reflux disease without esophagitis; E78.5 Hyperlipidemia, unspecified; H26.9 Unspecified cataract; E11.40 Type 2 diabetes mellitus with diabetic neuropathy, unspecified; Z87.440 Personal history of urinary (tract) infections; N41.9 Inflammatory disease of prostate, unspecified
CPT/HCPCS: 43239; 45380; 45381; 45385; 82948; 88305; 88312; 88342; J2001; J2704; J7040 ×2

== ENCOUNTER 2017-11-03 08:37 | Inpatient (IN) | payer MEDICAID ==
[2017-09-09 12:49] VITALS: BMI 25.7
[2017-10-30] MEDS: Insulin Lispro (humaLOG) LOW Coverage SC SCH (22:10)
[2017-11-03] MEDS ORDERED: Propofol 10 mg/ml Inj (20 ML) ONE (10:52)
[2017-11-03] MEDS ORDERED: Midazolam 2 MG/2 ML VIAL ONE (10:52)
[2017-11-03] MEDS ORDERED: Bupivacaine 0.5% Inj(30mL) ONE (11:14)
[2017-11-03] MEDS ORDERED: Rocuronium 10 mg/ml (5 ml) ONE (11:43)
[2017-11-03] MEDS ORDERED: Neostigmine Methylsulfate 3mg/3ml Syringe IV ONE (11:58)
[2017-11-03] MEDS ORDERED: MetroNIDAZOLE 500 mg/100 ml IVPB ONE (12:00)
[2017-11-03] MEDS ORDERED: metroNIDAZOLE IV 500 mg/100 ml 500 MG/100 ML BAG ONE (12:01)
[2017-11-03] MEDS ORDERED: Bupivacaine 0.25% Inj(30mL) ONE (12:01)
[2017-11-03] MEDS ORDERED: HYDROmorphone 0.5 mg/0.5 ml ISec IVP PRN (12:44)
[2017-11-03] MEDS ORDERED: Lactated Ringer's 1,000 ML IV SCH (12:45)
[2017-11-03] MEDS ORDERED: Labetalol 5 mg/ml Inj 20ML ONE (13:27)
--- NOTE | 2017-11-03 13:55 | PCM.SURG1 ---
Surgeon's Initial Post Op Note - Surgeon's Notes Surgeon: Dr. Rivera Geophysical Party Chief: Rabia PGY1, Mayra PGY1 Type of Anesthesia: General Endo Anesthesia Administered By: Dr. Pantoja Pre-Operative Diagnosis: Villous adenoma Operative Findings: Right colon with singaporean ink marking Post-Operative Diagnosis: Villous adenoma Operation Performed: Right hemicolectomy with primary anastomosis Specimen/Specimens Removed: Right colon, including cecum and distal ileum Estimated Blood Loss: EBL {In ML}: 100 Blood Products Given: N/A Drains Used: Dwayne Post-Op Condition: Good Date of Surgery/Procedure: 11/03/17 Time of Surgery/Procedure: 13:55
[2017-11-03] MEDS: HYDROmorphone 0.5 mg/0.5 ml ISec IVP PRN ×2 (15:17→21:45)
[2017-11-03] MEDS: Lactated Ringer's 1,000 ML IV SCH (15:27)
[2017-11-03] MEDS: Insulin Lispro (humaLOG) LOW Coverage SC SCH ×2 (16:38→23:45)
[2017-11-03] MEDS: metroNIDAZOLE IV 500 mg/100 ml 500 MG/100 ML BAG IVPB SCH (18:13)
[2017-11-03] MEDS ORDERED: Benzocaine/Menthol (Cepacol) Lozenge MT PRN (18:44)
[2017-11-03] MEDS ORDERED: Saliva Substitute 44.3 ML PO PRN (18:44)
[2017-11-03] MEDS ORDERED: Pneumococcal 23-Valent Vaccine IM ONE (21:14)
[2017-11-03] MEDS: Ciprofloxacin 400mg/200ml D5W 400 MG/200 ML BAG IVPB SCH (21:45)
[2017-11-04] MEDS ORDERED: HYDROmorphone 0.5 mg/0.5 ml ISec IVP STA (00:33)
[2017-11-04] MEDS: Lactated Ringer's 1,000 ML IV SCH ×2 (01:59→23:22)
[2017-11-04] MEDS: metroNIDAZOLE IV 500 mg/100 ml 500 MG/100 ML BAG IVPB SCH (02:54)
[2017-11-04] MEDS: HYDROmorphone 0.5 mg/0.5 ml ISec IVP PRN ×5 (03:50→23:15)
[2017-11-04 07:00] LABS: BASO # 0.01 K/mm3 (0.0-2.0); BASO % 0.1 % (0.0-3.0); GRAN # 8.48 (1.4-6.5); GRAN % 82.7 % (50.0-68.0); HEMOGLOBIN 12.4 g/dL (14.0-18.0); LYMPH % 9.7 % (22.0-35.0); MEAN CELL VOLUME 79.9 fl (80.0-105.0); MEAN CORPUSCULAR HEMOGLOBIN 26.8 pg (25.0-35.0); MEAN CORPUSCULAR HGB CONC 33.5 g/dl (31.0-37.0); MONO # 0.8 (0.1-0.6); MONO % 7.5 % (1.0-6.0); PLATELET COUNT 158 10^3/uL (120.0-450.0); RBC 4.63 10^6/uL (3.5-6.1); RED CELL DISTRIBUTION WIDTH 19.7 % (11.5-14.5); WHITE BLOOD COUNT 10.3 10^3/ul (4.5-11.0)
[2017-11-04 07:20] LABS: ALBUMIN 3.2 g/dL (3.0-4.8); ALT/SGPT 52 U/L (7-56); AST/SGOT 58 U/L (17-59); BLOOD UREA NITROGEN 9 mg/dL (7-21); CALCIUM 8.6 mg/dL (8.4-10.5); GFR AFRICAN-AMERICAN > 60; GFR NON-AFRICAN AMERICAN > 60
[2017-11-04] MEDS: Insulin Lispro (humaLOG) LOW Coverage SC SCH ×4 (08:30→22:58)
--- NOTE | 2017-11-04 08:50 | CP.PCM.PN ---
<Rosalina Nunez - Last Filed: 11/04/17 11:14> Subjective - Date & Time of Evaluation Date of Evaluation: 11/04/17 Time of Evaluation: 08:48 - Subjective Subjective: General surgery progress note for Dr. Rivera-Rosalina Nunez, PGY-1 Pt S & E at bedside at 0715 Pt reports pain overnight requiring pain medication, sore throat. Denies N & V , F & C, other complaints overnight. Drain with 95cc serosangouis output. Voiding- 400cc/12 hrs. Objective - Vital Signs/Intake and Output Vital Signs (last 24 hours): Temp Pulse Resp BP Pulse Ox 98.3 F 83 20 142/74 99 11/04/17 06:00 11/04/17 06:00 11/04/17 06:00 11/04/17 06:00 11/04/17 06:00 Intake and Output: 11/04/17 11/04/17 06:59 18:59 Intake Total 1500 Output Total 1045 Balance 455 - Medications Medications: Current Medications Benzocaine/Menthol (Cepacol Sore Throat) 1 jak MT Q2H PRN PRN Reason: Sore Throat Last Admin: 11/03/17 21:45 Dose: 1 jak Hydromorphone HCl (Dilaudid) 0.5 mg IVP Q6H PRN PRN Reason: Pain, severe (8-10) Last Admin: 11/04/17 03:50 Dose: 0.5 mg Ciprofloxacin (Cipro 400mg/200ml Dsw) 400 mg in 200 mls @ 133.3 mls/hr IVPB Q12 [facility] PRN Reason: Protocol Stop: 11/04/17 11:31 Last Admin: 11/03/17 21:45 Dose: 133.3 mls/hr Lactated Ringer's (Lactated Ringer's) 1,000 mls @ 100 mls/hr IV .Q10H [facility] Last Admin: 11/04/17 01:59 Dose: Not Given Insulin Human Lispro (Humalog Low) 0 units SC ACHS [facility] PRN Reason: Protocol Last Admin: 11/03/17 23:45 Dose: Not Given Lisinopril (Zestril) 30 mg PO DAILY [facility] Ondansetron HCl (Zofran Inj) 4 mg IVP Q6H PRN PRN Reason: Nausea/Vomiting Last Admin: 11/03/17 21:45 Dose: 4 mg Pantoprazole Sodium (Protonix Inj) 40 mg IVP DAILY [facility] Saliva Substitute (Saliva Substitute) 0 ml PO Q4 PRN PRN Reason: Dry mouth - Labs Labs: 11/04/17 06:20 11/04/17 06:20 - Constitutional Appears: Non-toxic, No Acute Distress - Head Exam Head Exam: ATRAUMATIC, NORMAL INSPECTION, NORMOCEPHALIC - Eye Exam Eye Exam: EOMI, Normal appearance - ENT Exam ENT Exam: Mucous Membranes Moist, Normal Exam - Neck Exam Neck Exam: Full ROM, Normal Inspection - Respiratory Exam Respiratory Exam: NORMAL BREATHING PATTERN - Cardiovascular Exam Cardiovascular Exam: REGULAR RHYTHM - GI/Abdominal Exam GI & Abdominal Exam: Soft, Tenderness (over surgical incision sites- dressing in place- clean/dry/intact). absent: Distended, Firm, Guarding, Rigid, Hernia - Extremities Exam Extremities Exam: Normal Inspection - Neurological Exam Neurological Exam: Alert, Awake, CN II-XII Intact - Psychiatric Exam Psychiatric exam: Normal Affect, Normal Mood - Skin Skin Exam: Dry, Intact, Normal Color, Warm Assessment and Plan - Assessment and Plan (Free Text) Assessment: 61M POD#1 s/p Right hemicolectomy Plan: Monitor drain output Monitor for bowel function Will keep carter due to history of urinary retention/pt request Urology consulted Cepacol Pain control Anti-emetic OOBTC PT Hgb WNL- 12.4 from 12.5 Cont accuchecks, ISS Advance to clears Monitor for diet tolerance DW attending Mayra, PGY-1 <Keaton Rivera - Last Filed: 11/04/17 11:17> Objective - Vital Signs/Intake and Output Vital Signs (last 24 hours): Temp Pulse Resp BP Pulse Ox 98.3 F 83 20 142/74 99 11/04/17 06:00 11/04/17 09:10 11/04/17 06:00 11/04/17 09:10 11/04/17 06:00 Intake and Output: 11/04/17 11/04/17 06:59 18:59 Intake Total 1500 Output Total 1045 Balance 455 - Medications Medications: Current Medications Benzocaine/Menthol (Cepacol Sore Throat) 1 jak MT Q2H PRN PRN Reason: Sore Throat Last Admin: 11/03/17 21:45 Dose: 1 jak Hydromorphone HCl (Dilaudid) 0.5 mg IVP Q3H PRN PRN Reason: Pain, severe (8-10) Ciprofloxacin (Cipro 400mg/200ml Dsw) 400 mg in 200 mls @ 133.3 mls/hr IVPB Q12 [facility] PRN Reason: Protocol Stop: 11/04/17 11:31 Last Admin: 11/04/17 09:01 Dose: 133.3 mls/hr Lactated Ringer's (Lactated Ringer's) 1,000 mls @ 100 mls/hr IV .Q10H [facility] Last Admin: 11/04/17 01:59 Dose: Not Given Insulin Human Lispro (Humalog Low) 0 units SC ACHS [facility] PRN Reason: Protocol Last Admin: 11/04/17 08:30 Dose: 2 unit Lisinopril (Zestril) 30 mg PO DAILY [facility] Last Admin: 11/04/17 09:10 Dose: 30 mg Ondansetron HCl (Zofran Inj) 4 mg IVP Q6H PRN PRN Reason: Nausea/Vomiting Last Admin: 11/03/17 21:45 Dose: 4 mg Pantoprazole Sodium (Protonix Inj) 40 mg IVP DAILY [facility] Last Admin: 11/04/17 09:04 Dose: 40 mg Saliva Substitute (Saliva Substitute) 0 ml PO Q4 PRN PRN Reason: Dry mouth - Labs Labs: 11/04/17 06:20 11/04/17 06:20 Assessment and Plan - Assessment and Plan (Free Text) Assessment: On Q Pump clamped all night(?)-on now Severe BPH History - will get Dr Jin to see pt Marlene Rivera MD FACS
[2017-11-04] MEDS: Ciprofloxacin 400mg/200ml D5W 400 MG/200 ML BAG IVPB SCH (09:01)
[2017-11-04] MEDS ORDERED: Magnesium Oxide 400 mg Tab UD PO ONE (09:40)
--- NOTE | 2017-11-04 13:42 | CP.PCM.PCO ---
Physician Communication Note - Physician Communication Note Physician Communication Note: Spoke to Dr. Fannie Jin re: pt. He will evaluate
--- NOTE | 2017-11-04 21:28 | OP ---
PROCEDURE DATE: 11/03/2017 SURGEON: Keaton Rivera MD KNIFE MACHINE OPERATOR: Boaz Camarillo DO, PGY-2. SECOND 3D ARTIST: Rosalina Nunez DO, PGY-2. HOTEL GUEST SERVICE AGENT: Des Pantoja MD. ANESTHESIA: General endotracheal - On-Q. PREOPERATIVE DIAGNOSES: 1. Right colon villous adenoma. 2. Hypertension. POSTOPERATIVE DIAGNOSES: 1. Right colon tumor - pathology pending. 2. Portal cirrhosis. 3. Intestinal adhesions. PROCEDURE: On 11/03/2017: 1. Right hemicolectomy with anastomosis. 2. Insertion of an On-Q catheter. OPERATIVE INDICATIONS: The patient is a 61-year-old -[place] male who is referred by the oceanologist, Dr. Sousa, for a lesion in the right ascending colon. In his colonoscopy, he had multiple small polyps removed and a villous lesion in the ascending colon was injected and shave excised, but the patient is referred for further removal of same because of the concern with the completeness of the endoscopic excision. Risks, benefits and alternatives with their anticipated outcomes were discussed with the patient and he signs the informed consent and will undergo bowel preparation at home. OPERATIVE NOTE: The patient was brought to the operating room from the Same Day Surgery Unit. He is identified by his wristband and undergoes time-out procedure. Following this, he is placed on the table in a supine manner and undergoes the induction of general anesthesia with the insertion of an endotracheal tube. Because of a very severe history of benign prostatic hypertrophy with multiple recatheterizations required and admission to the hospital for same, a Naylor catheter was inserted uneventfully after lubricating the urethral channel and the abdomen is electrically clipped, prepped with Hibiclens chlorhexidine preparation and the patient is aseptically draped. A transverse incision is made from the umbilicus laterally on the right side with sharp dissection carried down through the subcutaneous tissues and the rectus musculature below using electrocautery for hemostasis. The peritoneum was incised along the direction of the skin wound and the abdomen is completely explored with the visualization of the Dimple ink marking in the ascending colon and unexpected portal cirrhosis although [id number] nature. A Bookwalter retractor was inserted and the abdomen is retracted and significant dense adhesions are encountered in the region of the ileocecal valve requiring sharp lysis. Once the ileum is freed and is transected with the ALVIN - 55 stapler and the mesentery of the terminal ileum and up to the colon is transected with the LigaSure device. The transverse colon is now brought into the incision, bluntly dissected free and transected with the same ALVIN - 55 stapler and the right colon was removed with care to avoid injury to the duodenum below and hemostasis was contained completely with the LigaSure device. The intervening segment of transverse colon, ascending colon and terminal ileum - appendix are submitted to Pathology in formalin after opening off the operative field. The area with the Dimple ink marking demonstrates marked thickening with what appears a normal mucosal surface over same indicating the resection site has cleared with healing. The area is now lavaged with multi liters of normal saline solution until the return is clear and the terminal ileum is laid in a [id number] manner with the transverse colon with 3-0 silk seromuscular stay sutures. Incision was made into the terminal ileum and the transverse colon and the ALVIN stapler was inserted, closed and fired. The defect is now approximated with Allis clamps and re-secured with a TA 60 - 3.5 stapler. The meso and potential hernia space between the transverse colon and the terminal ileum is now closed with 2-0 chromic catgut suture. A Dwayne 15-Somali drain is inserted into the abdomen through the abdominal wall by trocar technique and secured to the skin with 2-0 Surgidac polyester suture. It is placed in the right gutter going down into the pelvis and an On-Q catheter was now prepared for insertion for postoperative analgesia. The catheter is placed above the peritoneum on either side through a stab wound lateral to the incision in the right flank using the trocar obturator technique. Once both catheters were in place, they are secured with Dermabond adhesive and inflated, instilled with bupivacaine 0.5% - 10 ml each Peritoneum was now closed with running 0 Polysorb suture and the anterior fascia now approximated with double-stranded #1 PDS suture. The subcutaneous tissues are lavaged with saline until the return is clear and subcutaneous approximation with 3-0 Polysorb was employed and the skin with the AutoSuture skin stapler. A dry dressing is applied. The patient is awakened, extubated and transported to the recovery room in a satisfactory condition. Sponge, instrument, suture count were verified as correct at the end of the procedure. Estimated blood loss during this procedure was less than 100 ml of blood. This operative dictation will be electronically signed without being read. The surgical assistants were present from beginning to end and was extremely valuable in the difficult dissection due to the adhesions encountered in the right pelvis. Keaton Rivera MD
[2017-11-05] MEDS: HYDROmorphone 0.5 mg/0.5 ml ISec IVP PRN ×6 (02:10→20:38)
[2017-11-05] MEDS: Lactated Ringer's 1,000 ML IV SCH ×4 (05:05→20:42)
[2017-11-05 06:24] LABS: BASO # 0.01 K/mm3 (0.0-2.0); BASO % 0.1 % (0.0-3.0); EOS # 0.1 (0.0-0.7); EOS % 0.7 % (1.5-5.0); GRAN # 7.56 (1.4-6.5); GRAN % 80.6 % (50.0-68.0); HEMOGLOBIN 11.3 g/dL (14.0-18.0); LYMPH # 1.1 (1.2-3.4); LYMPH % 11.6 % (22.0-35.0); MEAN CELL VOLUME 79.9 fl (80.0-105.0); MEAN CORPUSCULAR HEMOGLOBIN 26.8 pg (25.0-35.0); MEAN CORPUSCULAR HGB CONC 33.5 g/dl (31.0-37.0); MONO # 0.7 (0.1-0.6); PLATELET COUNT 132 10^3/uL (120.0-450.0); RBC 4.22 10^6/uL (3.5-6.1); RED CELL DISTRIBUTION WIDTH 19.4 % (11.5-14.5); WHITE BLOOD COUNT 9.4 10^3/ul (4.5-11.0)
[2017-11-05 07:19] LABS: BLOOD UREA NITROGEN 7 mg/dL (7-21); CALCIUM 8.4 mg/dL (8.4-10.5); GFR AFRICAN-AMERICAN > 60; GFR NON-AFRICAN AMERICAN > 60
[2017-11-05] MEDS: Insulin Lispro (humaLOG) LOW Coverage SC SCH ×4 (08:08→22:15)
--- NOTE | 2017-11-05 09:12 | CP.PCM.PN ---
<Boaz Camarillo - Last Filed: 11/05/17 09:52> Subjective - Date & Time of Evaluation Date of Evaluation: 11/05/17 Time of Evaluation: 07:40 - Subjective Subjective: General Surgery Note for Dr. Rivera Patient seen and examined at bedside. No acute event overnight. Patient is s/p right hemicolectomy POD#2. He is still complaining of abdominal pain but states it is controlled with On-q and medication. Patient still has carter in place with 1200cc over last 12 hours. Dwayne drain had 115 cc of serosanguinous output over 24 hours. Objective - Vital Signs/Intake and Output Vital Signs (last 24 hours): Temp Pulse Resp BP Pulse Ox 98.8 F 96 H 20 167/87 H 97 11/05/17 09:00 11/05/17 09:00 11/05/17 09:00 11/05/17 09:00 11/05/17 09:00 Intake and Output: 11/05/17 11/05/17 06:59 18:59 Intake Total 1840 Output Total 1295 Balance 545 - Medications Medications: Current Medications Benzocaine/Menthol (Cepacol Sore Throat) 1 jak MT Q2H PRN PRN Reason: Sore Throat Last Admin: 11/03/17 21:45 Dose: 1 jak Hydromorphone HCl (Dilaudid) 0.5 mg IVP Q3H PRN PRN Reason: Pain, severe (8-10) Last Admin: 11/05/17 08:08 Dose: 0.5 mg Lactated Ringer's (Lactated Ringer's) 1,000 mls @ 75 mls/hr IV .[id number] [facility] Last Admin: 11/05/17 06:18 Dose: Not Given Insulin Human Lispro (Humalog Low) 0 units SC ACHS [facility] PRN Reason: Protocol Last Admin: 11/05/17 08:08 Dose: 1 unit Lisinopril (Zestril) 30 mg PO DAILY [facility] Last Admin: 11/04/17 09:10 Dose: 30 mg Ondansetron HCl (Zofran Inj) 4 mg IVP Q6H PRN PRN Reason: Nausea/Vomiting Last Admin: 11/03/17 21:45 Dose: 4 mg Pantoprazole Sodium (Protonix Inj) 40 mg IVP DAILY [facility] Last Admin: 11/04/17 09:04 Dose: 40 mg Saliva Substitute (Saliva Substitute) 0 ml PO Q4 PRN PRN Reason: Dry mouth Tamsulosin HCl (Flomax) 0.4 mg PO DAILY [facility] - Labs Labs: 11/05/17 06:00 11/05/17 06:00 - Constitutional Appears: No Acute Distress - Head Exam Head Exam: ATRAUMATIC, NORMOCEPHALIC - Eye Exam Eye Exam: Normal appearance - ENT Exam ENT Exam: Mucous Membranes Moist - Respiratory Exam Respiratory Exam: NORMAL BREATHING PATTERN - Cardiovascular Exam Cardiovascular Exam: REGULAR RHYTHM - GI/Abdominal Exam GI & Abdominal Exam: Soft, Tenderness (surgical site), Normal Bowel Sounds. absent: Distended, Firm, Guarding, Rigid, Rebound Additional comments: surgical dressing clean dry and intact - Exam Additional comments: carter catheter - Extremities Exam Extremities Exam: Normal Capillary Refill - Back Exam Back Exam: absent: CVA tenderness (L), CVA tenderness (R) - Neurological Exam Neurological Exam: Alert, Awake, Oriented x3 - Psychiatric Exam Psychiatric exam: Normal Affect, Normal Mood - Skin Skin Exam: Dry, Intact, Normal Color, Warm Assessment and Plan - Assessment and Plan (Free Text) Assessment: 61M s/p Right hemicolectomy POD#2 Plan: CLD Monitor for bowel function Urology recommendations appreciated Cepacol lozanges ORn for dry mouth Analgesics/Anti-emetic PRN OOBTC/IS/Ambulation PT/OT Accuchecks, ISS Antihypertensives GI/DVT ppx Further recommendations as per Miguel Camarillo PGY1 <Keaton Rivera - Last Filed: 11/05/17 13:18> Objective - Vital Signs/Intake and Output Vital Signs (last 24 hours): Temp Pulse Resp BP Pulse Ox 98.8 F 96 H 20 167/87 H 97 11/05/17 09:00 11/05/17 09:34 11/05/17 09:00 11/05/17 09:34 11/05/17 09:00 Intake and Output: 11/05/17 11/05/17 06:59 18:59 Intake Total 1840 Output Total 1295 Balance 545 - Medications Medications: Current Medications Benzocaine/Menthol (Cepacol Sore Throat) 1 jak MT Q2H PRN PRN Reason: Sore Throat Last Admin: 11/03/17 21:45 Dose: 1 jak Gabapentin (Neurontin) 100 mg PO HS [facility] PRN Reason: Protocol Hydromorphone HCl (Dilaudid) 0.5 mg IVP Q3H PRN PRN Reason: Pain, severe (8-10) Last Admin: 11/05/17 12:16 Dose: 0.5 mg Lactated Ringer's (Lactated Ringer's) 1,000 mls @ 75 mls/hr IV .[id number] [facility] Last Admin: 11/05/17 06:18 Dose: Not Given Insulin Detemir (Levemir) 15 unit SC QAM [facility] Insulin Detemir (Levemir) 30 unit SC HS [facility] Insulin Human Lispro (Humalog Low) 0 units SC ACHS [facility] PRN Reason: Protocol Last Admin: 11/05/17 12:13 Dose: 2 unit Lisinopril (Zestril) 30 mg PO DAILY [facility] Last Admin: 11/05/17 09:34 Dose: 30 mg Metformin HCl (Glucophage) 1,000 mg PO BID [facility] Last Admin: 11/05/17 12:15 Dose: 1,000 mg Ondansetron HCl (Zofran Inj) 4 mg IVP Q6H PRN PRN Reason: Nausea/Vomiting Last Admin: 11/03/17 21:45 Dose: 4 mg Pantoprazole Sodium (Protonix Inj) 40 mg IVP DAILY [facility] Last Admin: 11/05/17 09:34 Dose: 40 mg Saliva Substitute (Saliva Substitute) 0 ml PO Q4 PRN PRN Reason: Dry mouth Tamsulosin HCl (Flomax) 0.4 mg PO DAILY [facility] Last Admin: 11/05/17 09:33 Dose: 0.4 mg Tramadol HCl (Ultram) 50 mg PO Q6H PRN PRN Reason: Pain, moderate (4-7) - Labs Labs: 11/05/17 06:00 11/05/17 06:00 Assessment and Plan - Assessment and Plan (Free Text) Assessment: Pos Flatus-Progress diet/Leave folay in/Ambulate Marlene Rivera MD FACS
[2017-11-05] MEDS ORDERED: Magnesium 2 gm/50 ml NS 2 GM/50 ML BAG IVPB ONE (10:58)
[2017-11-05] MEDS: Insulin Detemir 100 units/ml Vial (Levemir) SC SCH (22:15)
[2017-11-06] MEDS: HYDROmorphone 0.5 mg/0.5 ml ISec IVP PRN (00:53)
[2017-11-06 06:59] LABS: BASO # 0.01 K/mm3 (0.0-2.0); BASO % 0.2 % (0.0-3.0); EOS # 0.2 (0.0-0.7); EOS % 2.8 % (1.5-5.0); GRAN # 3.87 (1.4-6.5); GRAN % 68.5 % (50.0-68.0); HEMOGLOBIN 10.3 g/dL (14.0-18.0); LYMPH # 1.1 (1.2-3.4); LYMPH % 20.2 % (22.0-35.0); MEAN CELL VOLUME 79.8 fl (80.0-105.0); MEAN CORPUSCULAR HEMOGLOBIN 26.6 pg (25.0-35.0); MEAN CORPUSCULAR HGB CONC 33.3 g/dl (31.0-37.0); MONO # 0.5 (0.1-0.6); MONO % 8.3 % (1.0-6.0); PLATELET COUNT 124 10^3/uL (120.0-450.0); RBC 3.87 10^6/uL (3.5-6.1); WHITE BLOOD COUNT 5.7 10^3/ul (4.5-11.0)
[2017-11-06 07:18] LABS: BLOOD UREA NITROGEN 8 mg/dL (7-21); CALCIUM 8.4 mg/dL (8.4-10.5); GFR AFRICAN-AMERICAN > 60; GFR NON-AFRICAN AMERICAN > 60
[2017-11-06] MEDS ORDERED: Potassium Chloride 20 mEq ER Tab PO ONE (07:39)
--- NOTE | 2017-11-06 07:41 | CP.PCM.PN ---
<Boaz Camarillo - Last Filed: 11/06/17 09:54> Subjective - Date & Time of Evaluation Date of Evaluation: 11/06/17 Time of Evaluation: 07:10 - Subjective Subjective: General Surgery Note for Dr. Rivera Patient seen and examined at bedside. No acute event overnight. Patient is s/p right hemicolectomy POD#3. He states abdominal pain has improved. He is passing flatus but no BM. He is tolerating full liquids and will start HHD with mod carbs this AM. Carter in place with 1400cc over last 12 hours. Dwayne drain had 165 cc of serosanguinous output over 24 hours. ON-Q will be removed today. Patient still needs more PT and bowel function before discharge. We will keep one more day. Objective - Vital Signs/Intake and Output Vital Signs (last 24 hours): Temp Pulse Resp BP Pulse Ox 98.6 F 97 H 19 177/82 H 95 11/05/17 17:49 11/05/17 17:49 11/05/17 17:49 11/05/17 17:49 11/05/17 17:49 Intake and Output: 11/06/17 11/06/17 06:59 18:59 Output Total 1810 90 Balance -1810 -90 - Medications Medications: Current Medications Acetaminophen (Tylenol 325mg Tab) 975 mg PO Q8 [facility] Last Admin: 11/06/17 03:15 Dose: 975 mg Benzocaine/Menthol (Cepacol Sore Throat) 1 jak MT Q2H PRN PRN Reason: Sore Throat Last Admin: 11/03/17 21:45 Dose: 1 jak Gabapentin (Neurontin) 100 mg PO HS [facility] PRN Reason: Protocol Last Admin: 11/05/17 22:16 Dose: 100 mg Hydromorphone HCl (Dilaudid) 0.5 mg IVP Q3H PRN PRN Reason: Pain, severe (8-10) Last Admin: 11/06/17 00:53 Dose: 0.5 mg Lactated Ringer's (Lactated Ringer's) 1,000 mls @ 75 mls/hr IV .[id number] [facility] Last Admin: 11/05/17 20:42 Dose: 75 mls/hr Insulin Detemir (Levemir) 15 unit SC QAM [facility] Insulin Detemir (Levemir) 30 unit SC [facility] Last Admin: 11/05/17 22:15 Dose: 30 unit Insulin Human Lispro (Humalog Low) 0 units SC [facility] PRN Reason: Protocol Last Admin: 11/05/17 22:15 Dose: Not Given Lisinopril (Zestril) 30 mg PO DAILY [facility] Last Admin: 11/05/17 09:34 Dose: 30 mg Metformin HCl (Glucophage) 1,000 mg PO BID [facility] Last Admin: 11/05/17 17:25 Dose: 1,000 mg Ondansetron HCl (Zofran Inj) 4 mg IVP Q6H PRN PRN Reason: Nausea/Vomiting Last Admin: 11/03/17 21:45 Dose: 4 mg Pantoprazole Sodium (Protonix Inj) 40 mg IVP DAILY [facility] Last Admin: 11/05/17 09:34 Dose: 40 mg Potassium Chloride (K-Dur 20 Meq Er Tab) 40 meq PO ONCE ONE Stop: 11/06/17 07:40 Saliva Substitute (Saliva Substitute) 0 ml PO Q4 PRN PRN Reason: Dry mouth Tamsulosin HCl (Flomax) 0.4 mg PO DAILY [facility] Last Admin: 11/05/17 09:33 Dose: 0.4 mg Tramadol HCl (Ultram) 50 mg PO Q6H PRN PRN Reason: Pain, moderate (4-7) Last Admin: 11/06/17 03:14 Dose: 50 mg - Labs Labs: 11/06/17 06:00 11/06/17 06:00 - Additional Findings Additional findings: - Constitutional Appears: No Acute Distress - Head Exam Head Exam: ATRAUMATIC, NORMOCEPHALIC - Eye Exam Eye Exam: Normal appearance - ENT Exam ENT Exam: Mucous Membranes Moist - Respiratory Exam Respiratory Exam: NORMAL BREATHING PATTERN - Cardiovascular Exam Cardiovascular Exam: REGULAR RHYTHM - GI/Abdominal Exam GI & Abdominal Exam: Soft, Tenderness (mild, surgical site), Normal Bowel Sounds. absent: Distended, Firm, Guarding, Rigid, Rebound Additional comments: surgical site clean dry and intact dwayne drain with 100 cc of serosanguinous output inside - Exam Additional comments: carter catheter with 1400 cc of yellow urine - Extremities Exam Extremities Exam: Normal Capillary Refill - Back Exam Back Exam: absent: CVA tenderness (L), CVA tenderness (R) - Neurological Exam Neurological Exam: Alert, Awake, Oriented x3 - Psychiatric Exam Psychiatric exam: Normal Affect, Normal Mood - Skin Skin Exam: Dry, Intact, Normal Color, Warm Assessment and Plan - Assessment and Plan (Free Text) Assessment: 61M s/p Right hemicolectomy POD#3 Plan: HHD with mod carb consistent Monitor for bowel function Remove ON-Q today Urology recommendations - keep carter until outpt follow up Analgesics/Anti-emetic PRN OOB to chair/IS/Ambulation PT/OT Accuchecks, ISS Continue home insulin Antihypertensives GI/DVT ppx Further recommendations as per Miguel Camarillo PGY1 <Keaton Rivera - Last Filed: 11/06/17 21:50> Objective - Vital Signs/Intake and Output Vital Signs (last 24 hours): Temp Pulse Resp BP Pulse Ox 97.8 F 93 H 20 175/86 H 95 11/06/17 16:11 11/06/17 16:11 11/06/17 16:11 11/06/17 16:11 11/06/17 16:11 Intake and Output: 11/06/17 11/07/17 18:59 06:59 Intake Total 540 Output Total 90 400 Balance -90 140 - Medications Medications: Current Medications Acetaminophen (Tylenol 325mg Tab) 975 mg PO Q8 [facility] Last Admin: 11/06/17 14:46 Dose: Not Given Benzocaine/Menthol (Cepacol Sore Throat) 1 jak MT Q2H PRN PRN Reason: Sore Throat Last Admin: 11/03/17 21:45 Dose: 1 jak Gabapentin (Neurontin) 100 mg PO HS [facility] PRN Reason: Protocol Last Admin: 11/05/17 22:16 Dose: 100 mg Insulin Detemir (Levemir) 15 unit SC QAM [facility] Last Admin: 11/06/17 09:19 Dose: 15 unit Insulin Detemir (Levemir) 30 unit SC HS [facility] Last Admin: 11/05/17 22:15 Dose: 30 unit Insulin Human Lispro (Humalog Low) 0 units SC ACHS [facility] PRN Reason: Protocol Last Admin: 11/06/17 17:20 Dose: 1 unit Lisinopril (Zestril) 30 mg PO DAILY [facility] Last Admin: 11/06/17 09:22 Dose: 30 mg Metformin HCl (Glucophage) 1,000 mg PO BID [facility] Last Admin: 11/06/17 17:21 Dose: 1,000 mg Ondansetron HCl (Zofran Inj) 4 mg IVP Q6H PRN PRN Reason: Nausea/Vomiting Last Admin: 11/03/17 21:45 Dose: 4 mg Oxycodone/Acetaminophen (Percocet 5/325 Mg Tab) 1 tab PO Q4H PRN PRN Reason: Pain, moderate (4-7) Stop: 11/09/17 13:50 Last Admin: 11/06/17 20:14 Dose: 1 tab Pantoprazole Sodium (Protonix Inj) 40 mg IVP DAILY [facility] Last Admin: 11/06/17 09:22 Dose: 40 mg Saliva Substitute (Saliva Substitute) 0 ml PO Q4 PRN PRN Reason: Dry mouth Tamsulosin HCl (Flomax) 0.4 mg PO DAILY [facility] Last Admin: 11/06/17 09:24 Dose: 0.4 mg - Labs Labs: 11/06/17 06:00 11/06/17 06:00 Assessment and Plan - Assessment and Plan (Free Text) Assessment: Patient initially refused to go home with carter catheter but after many explanations changed his mind He will have the drains/OnQ/Dominik removed in am and go home(He refuses JESSICA/ [facility]) His 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 No further Rx recommended save the Prostate problem Marlene Rivera MD FACS
[2017-11-06] MEDS: Insulin Lispro (humaLOG) LOW Coverage SC SCH ×3 (08:35→17:20)
[2017-11-06] MEDS: Insulin Detemir 100 units/ml Vial (Levemir) SC SCH ×2 (09:19→22:30)
[2017-11-06] MEDS: Oxycodone/Acetaminophen 5/325 mg Tab PO PRN ×2 (14:16→20:14)
[2017-11-06 16:12] VITALS: RESP 20
[2017-11-07] MEDS: Oxycodone/Acetaminophen 5/325 mg Tab PO PRN ×3 (00:27→13:48)
[2017-11-07 06:56] LABS: BLOOD UREA NITROGEN 11 mg/dL (7-21); CALCIUM 8.6 mg/dL (8.4-10.5); GFR AFRICAN-AMERICAN > 60; GFR NON-AFRICAN AMERICAN > 60
[2017-11-07 07:18] LABS: BASO # 0.01 K/mm3 (0.0-2.0); BASO % 0.2 % (0.0-3.0); EOS # 0.2 (0.0-0.7); EOS % 4.3 % (1.5-5.0); GRAN # 2.66 (1.4-6.5); GRAN % 57.2 % (50.0-68.0); HEMOGLOBIN 10.6 g/dL (14.0-18.0); LYMPH # 1.4 (1.2-3.4); MEAN CELL VOLUME 79.7 fl (80.0-105.0); MEAN CORPUSCULAR HEMOGLOBIN 26.6 pg (25.0-35.0); MEAN CORPUSCULAR HGB CONC 33.3 g/dl (31.0-37.0); MONO # 0.3 (0.1-0.6); MONO % 7.3 % (1.0-6.0); PLATELET COUNT 148 10^3/uL (120.0-450.0); RBC 3.99 10^6/uL (3.5-6.1); RED CELL DISTRIBUTION WIDTH 18.5 % (11.5-14.5); WHITE BLOOD COUNT 4.7 10^3/ul (4.5-11.0)
--- NOTE | 2017-11-07 08:25 | CP.PCM.PN ---
Objective - Vital Signs/Intake and Output Vital Signs (last 24 hours): Temp Pulse Resp BP Pulse Ox 97.8 F 93 H 20 175/86 H 95 11/06/17 16:11 11/06/17 16:11 11/06/17 16:11 11/06/17 16:11 11/06/17 16:11 Intake and Output: 11/07/17 11/07/17 06:59 18:59 Intake Total 540 Output Total 400 Balance 140 - Medications Medications: Current Medications Acetaminophen (Tylenol 325mg Tab) 975 mg PO Q8 [facility] Last Admin: 11/07/17 05:40 Dose: 975 mg Benzocaine/Menthol (Cepacol Sore Throat) 1 jak MT Q2H PRN PRN Reason: Sore Throat Last Admin: 11/03/17 21:45 Dose: 1 jak Gabapentin (Neurontin) 100 mg PO [facility] PRN Reason: Protocol Last Admin: 11/06/17 22:30 Dose: Not Given Insulin Detem[facility] (Levemir) [facility] Last Admin: 11/06/17 09:19 Dose: 15 unit Insulin Detemir (Levemir) 30 unit SC [facility] Last Admin: 11/06/17 22:30 Dose: 30 unit Insulin Human Lispro (Humalog Low) 0 units [facility] PRN Reason: Protocol Last Admin: 11/06/17 17:20 Dose: 1 unit Lisinopril (Zestril) 30 mg PO DAILY [facility] Last Admin: 11/06/17 09:22 Dose: 30 mg Metformin HCl (Glucophage) 1,000 mg PO BID [facility] Last Admin: 11/06/17 17:21 Dose: 1,000 mg Ondansetron HCl (Zofran Inj) 4 mg IVP Q6H PRN PRN Reason: Nausea/Vomiting Last Admin: 11/03/17 21:45 Dose: 4 mg Oxycodone/Acetaminophen (Percocet 5/325 Mg Tab) 1 tab PO Q4H PRN PRN Reason: Pain, moderate (4-7) Stop: 11/09/17 13:50 Last Admin: 11/07/17 00:27 Dose: 1 tab Pantoprazole Sodium (Protonix Inj) 40 mg IVP DAILY [facility] Last Admin: 11/06/17 09:22 Dose: 40 mg Saliva Substitute (Saliva Substitute) 0 ml PO Q4 PRN PRN Reason: Dry mouth Tamsulosin HCl (Flomax) 0.4 mg PO DAILY [facility] Last Admin: 11/06/17 09:24 Dose: 0.4 mg - Labs Labs: 11/07/17 05:00 11/07/17 05:00
[2017-11-07] MEDS: Insulin Lispro (humaLOG) LOW Coverage SC SCH ×2 (08:29→12:30)
[2017-11-07] MEDS: Insulin Detemir 100 units/ml Vial (Levemir) SC SCH (09:28)
[2017-11-07 09:41] VITALS: BP 174/93; PULSE 92
--- NOTE | 2017-11-07 10:02 | CP.PCM.DIS ---
Provider - Provider Date of Admission: 11/03/17 08:37 Attending physician: Keaton Benítez MD Primary care physician: Emeli Lacey MD Consults: Urology: Davin Time Spent in preparation of Discharge (in minutes): 40 Diagnosis - Discharge Diagnosis (1) S/P right hemicolectomy Status: Acute Hospital Course - Lab Results Lab Results: Most Recent Lab Values WBC 4.7 10^3/ul (4.5-11.0) 11/07/17 05:00 RBC 3.99 10^6/uL (3.5-6.1) 11/07/17 05:00 Hgb 10.6 g/dL (14.0-18.0) L 11/07/17 05:00 Hct 31.8 % (42.0-52.0) L 11/07/17 05:00 MCV 79.7 fl (80.0-105.0) L 11/07/17 05:00 MCH 26.6 pg (25.0-35.0) 11/07/17 05:00 MCHC 33.3 g/dl (31.0-37.0) 11/07/17 05:00 RDW 18.5 % (11.5-14.5) H 11/07/17 05:00 Plt Count 148 10^3/uL (120.0-450.0) 11/07/17 05:00 Gran % 57.2 % (50.0-68.0) 11/07/17 05:00 Lymph % (Auto) 31.0 % (22.0-35.0) 11/07/17 05:00 Howell % (Auto) 7.3 % (1.0-6.0) H 11/07/17 05:00 Eos % (Auto) 4.3 % (1.5-5.0) 11/07/17 05:00 Baso % (Auto) 0.2 % (0.0-3.0) 11/07/17 05:00 Gran # 2.66 (1.4-6.5) 11/07/17 05:00 Lymph # (Auto) 1.4 (1.2-3.4) 11/07/17 05:00 Howell # (Auto) 0.3 (0.1-0.6) 11/07/17 05:00 Eos # (Auto) 0.2 (0.0-0.7) 11/07/17 05:00 Baso # (Auto) 0.01 K/mm3 (0.0-2.0) 11/07/17 05:00 Sodium 139 mmol/L (132-148) 11/07/17 05:00 Potassium 3.8 mmol/L (3.6-5.0) 11/07/17 05:00 Chloride 104 mmol/L (98-107) 11/07/17 05:00 Carbon Dioxide 28 mmol/L (21-33) 11/07/17 05:00 Anion Gap 11 (10-20) 11/07/17 05:00 BUN 11 mg/dL (7-21) 11/07/17 05:00 Creatinine 0.7 mg/dl (0.8-1.5) L 11/07/17 05:00 Est GFR ( Amer) > 60 11/07/17 05:00 Est GFR (Non-Af Amer) > 60 11/07/17 05:00 POC Glucose (mg/dL) 112 mg/dL (65-110) H 11/07/17 07:15 Random Glucose 126 mg/dL (70-110) H 11/07/17 05:00 Calcium 8.6 mg/dL (8.4-10.5) 11/07/17 05:00 Phosphorus 3.3 mg/dL (2.5-4.5) 11/07/17 05:00 Magnesium 1.8 mg/dL (1.7-2.2) 11/07/17 05:00 Total Bilirubin 0.4 mg/dL (0.2-1.3) 11/04/17 06:20 AST 58 U/L (17-59) 11/04/17 06:20 ALT 52 U/L (7-56) 11/04/17 06:20 Alkaline Phosphatase 153 U/L (38-126) H D 11/04/17 06:20 Total Protein 6.5 g/dL (5.8-8.3) 11/04/17 06:20 Albumin 3.2 g/dL (3.0-4.8) 11/04/17 06:20 Globulin 3.3 gm/dL 11/04/17 06:20 Albumin/Globulin Ratio 1.0 (1.1-1.8) L 11/04/17 06:20 Blood Type B POSITIVE 11/03/17 09:15 Antibody Screen Negative 11/03/17 09:15 Crossmatch See Detail 11/03/17 09:15 BBK History Checked Patient has bt 11/03/17 09:15 - Hospital Course Hospital Course: 61 M with PMH of HTN and DM was admitted to hospital on 11/03 s/p right hemicolectomy. 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 The procedure went as planned and patient tolerated it well. Post operatively, patient was admitted for monitoring. Andrea catheter remained inserted due to patient's history of urinary retention post-operatively from previous procedure. Urology was consulted. Patient's home meds for HTN and DM were restarted. Physical theroay saw and worked with the patient. Patient was controlled by medication and transitioned to oral meds. ON POD#3, patient was deemed medically stable for discharge by Dr. Benítez. He was instructed to keep dwayne drain and andrea in place. Dwayne drain will be removed on follow up with Dr. Benítez while andrae to be removed by urology at office. Patient was instructed to follow up as outpatient with Dr. Benítez and Dr. Jin within 1-2 weeks. - Date & Time of H&P Date of H&P: 11/03/17 Discharge Exam - Head Exam Head Exam: ATRAUMATIC, NORMOCEPHALIC - Eye Exam Eye Exam: EOMI, Normal appearance Pupil Exam: PERRL - ENT Exam ENT Exam: Mucous Membranes Moist - Respiratory Exam Respiratory Exam: NORMAL BREATHING PATTERN - Cardiovascular Exam Cardiovascular Exam: REGULAR RHYTHM - GI/Abdominal Exam GI & Abdominal Exam: Hyperactive Bowel Sounds, Soft. absent: Distended, Firm, Guarding, Rebound, Rigid, Tenderness Additional comments: dwayne drain in place - Exam Additional comments: andrea in place - Extremities Exam Extremities exam: normal capillary refill, pedal pulses present - Back Exam Back exam: absent: CVA tenderness (L), CVA tenderness (R) - Neurological Exam Neurological exam: Alert, CN II-XII Intact, Oriented x3 - Psychiatric Exam Psychiatric exam: Normal Affect, Normal Mood - Skin Skin Exam: Dry, Intact, Normal Color, Warm Discharge Plan - Follow Up Plan Condition: GOOD Disposition: HOME/ ROUTINE Instructions: Junior-Tavarez Drain, Colectomy, Partial and Total, (DC) Additional Instructions: PATIENT TO FOLLOW UP WITH DR. JIN IN ONE WEEK. PATIENT TO FOLLOW UP WITH DR. BENÍTEZ IN ONE WEEK. TAKE ALL MEDICATIONS PRESCRIBED. ANY NEW ONSET OF SYMPTOMS SUCH SHORTNESS OF BREATH, NAUSEA, VOMITING, BLEEDING, REPORT BACK TO THE ER IMMEDIATELY. ANDREA CATHETER TO STAY IN PLACE. EMA DRAIN TO STAY IN PLACE. Referrals: Emeli Arnold MD [Primary Care Provider] - Edgar Jin MD [Staff Provider] - Keaton Benítez MD [Staff Provider] -
[2017-11-07 13:31] VITALS: TEMP 97.9; O2SAT 96
--- NOTE | 2017-11-09 14:02 | CON ---
DATE: 11/05/2017 UROLOGY CONSULTATION REASON FOR CONSULTATION: Urinary retention. HISTORY OF PRESENT ILLNESS: Mr. Ortez is a very pleasant, but somewhat noncompliant gentleman who is now in the hospital for a colon resection and he had urinary retention and he failed a few voiding trials. Urology consult is requested for further recommendation. See the plans listed below, but for now, we are going to recommend keeping the Naylor catheter. I discussed with the patient at length. PAST MEDICAL AND SURGICAL HISTORY: As I listed on the chart, the patient of Dr. Rad Calderon, [place], [place]. He has also been outpatient with urinary retention and voiding dysfunction. Patient of Dr. Rad Calderon and Dr. Lacey. Very pleasant, but extremely noncompliant with his Urology care as well. He has been having retention before as well. Hence our recommendations, see below. The past medical and surgical listed above. MEDICATIONS: As listed on the chart. ALLERGIES: REVIEWED. PHYSICAL EXAMINATION: GENERAL: A well-developed, well nourished male, apparently currently resting comfortably in the [place]. VITAL SIGNS: Within normal limits. In no apparent distress. ABDOMEN: Noted. The Naylor catheter is in place and draining clear yellow urine. diagnosed with urinary retention and voiding dysfunction. The plan is as follows: The patient has baseline urinary retention, it is not necessarily just now, he only comes to the office when he is having specifically more trouble than usual. seeing him in the hospital. For now, our recommendation, I discussed with the patient at length and explained to him that for now, we recommend starting the Flomax once the GI tract starts resuming activity because as of now, for now, the patient has not even been on regular food yet. We would recommend that when at the time that he resumes his diet, we put him on Flomax 0.4 mg p.o. daily. , we will give a voiding trial. Then, we will discuss further options and plans with the patient . So the plan is as follows: 1. Check the serum PSA. 2. Start Flomax as soon as GI tract working. 3. Outpatient voiding trial. I have given the details to the patient in great detail. Shekhar Jin MD [facility] # [id number]
== END 2017-11-07 14:17 | disposition home health service (06) | DRG 148 ==
LOC: SDAINP 08:37 → EDSTATUS 10:30 → 3RSO 15:05
PROVIDERS: ADMIT Surgery; ATTEND Surgery
PROC: 0DTF0ZZ Resection of Right Large Intestine, Open Approach (ICD-10-PCS; principal; 2017-11-03 10:30)
DX: D12.0 Benign neoplasm of cecum (principal); K74.69 Other cirrhosis of liver; N40.1 Benign prostatic hyperplasia with lower urinary tract symptoms; R33.8 Other retention of urine; I10 Essential (primary) hypertension; E11.9 Type 2 diabetes mellitus without complications; K66.0 Peritoneal adhesions (postprocedural) (postinfection); Z91.19 Patient's noncompliance with other medical treatment and regimen

== ENCOUNTER 2018-02-18 16:21 | Inpatient (IN) | payer MEDICAID ==
--- NOTE | 2018-02-18 17:11 | ED PDOC ---
Arrival/HPI - General Chief Complaint: Weakness/Neurological Deficit Time Seen by Provider: 02/18/18 16:57 Historian: Patient - History of Present Illness Narrative History of Present Illness (Text): 02/18/18 17:02 62 y/o male, pmh including htn/dm/anemia/colon polyps, nkda, c/o send in by the pmd Dr. Mayen for anemia as he has been feeling fatigue and tired. Pt. stated that he has been feeling fatigue and tired for the past 2 weeks, seen by the pmd Dr. Mixon which check the hgb and noted to be around 6? and send the patient to the ER for evaluation/transfusion. Pt. stated that he has no nausea/vomiting/diarrhea/black color stool, no chest pain/palpitation/shortness of breath, no numbness or tingling, no change in vision, no rash, no headache or dizziness, no slurred speech, no other medical or psychological complaints. Past Medical History - Provider Review Nursing Documentation Reviewed: Yes - Infectious Disease Hx of Infectious Diseases: None - Cardiac Hx Cardiac Disorders: Yes Hx Hypertension: Yes - Pulmonary Hx Respiratory Disorders: No - Neurological Hx Neurological Disorder: Yes (diabetic neuropathy) Hx Dizziness: Yes - HEENT Hx HEENT Disorder: Yes (eyeglasses) Hx Cataracts: Yes (b/l sx) Other/Comment: nasal lesion, epistaxix resolved - Endocrine/Metabolic Hx Diabetes Mellitus Type 2: Yes - Hematological/Oncological Hx Blood Disorders: Yes Hx Anemia: Yes Hx Blood Transfusions: Yes - Integumentary Hx Dermatological Disorder: Yes Other/Comment: right abd dsg and wendi wendi sraining ss fluid, q ball in place to surgical site, surgical dressing intact - Musculoskeletal/Rheumatological Hx Arthritis: Yes - Gastrointestinal Hx Gastrointestinal Disorders: Yes (R COLON TUMOR) Hx Gastroesophageal Reflux: Yes Other/Comment: gi bleed, recent colonoscopy showed r colon tumor - Genitourinary/Gynecological Hx Genitourinary Disorders: Yes (dysuria) Hx Prostate Problems: Yes (bph) Hx Urinary Tract Infection: Yes - Psychiatric Hx Emotional Abuse: No Hx Physical Abuse: No Hx Substance Use: No - Past Surgical History Past Surgical History: No Previous - Surgical History Other/Comment: r hemicolectomy 11/03/17, cysto/bx, - Anesthesia Hx Anesthesia: Yes Hx Anesthesia Reactions: No Hx Malignant Hyperthermia: No - Suicidal Assessment Feels Threatened In Home Enviroment: No Family/Social History - Physician Review Nursing Documentation Reviewed: Yes Family/Social History: Unknown Family HX Smoking Status: Never Smoked Hx Alcohol Use: No Hx Substance Use: No Hx Substance Use Treatment: No Allergies/Home Meds Allergies/Adverse Reactions: Allergies No Known Allergies Allergy (Verified 05/13/14 11:00) Home Medications: Home Meds Medication Instructions Recorded Confirmed Ferrous Sulfate 325 mg PO BID 09/09/17 11/03/17 Pantoprazole [Protonix EC Tab] 40 mg PO DAILY 09/09/17 11/03/17 Rosuvastatin Calcium [Crestor] 20 mg PO DAILY 09/09/17 11/03/17 GlipiZIDE [Glucotrol] 10 mg PO BID 10/21/17 11/03/17 Review of Systems - Review of Systems Constitutional: Fatigue Eyes: absent: Vision Changes ENT: absent: Hearing Changes Respiratory: absent: SOB, Cough Cardiovascular: absent: Chest Pain Gastrointestinal: absent: Abdominal Pain, Diarrhea, Nausea, Vomiting Musculoskeletal: absent: Arthralgias, Back Pain Skin: absent: Rash, Pruritis Neurological: absent: Headache, Dizziness Psychiatric: absent: Anxiety, Depression, Suicidal Ideation Physical Exam Vital Signs Reviewed: Yes Vital Signs Temp Pulse Resp BP Pulse Ox 02/18/18 16:41 98.6 F 89 18 147/59 L 100 Temperature: Afebrile Pulse: Regular Respiratory Rate: Normal Appearance: Positive for: Well-Appearing, Non-Toxic, Comfortable Pain Distress: None Mental Status: Positive for: Alert and Oriented X 3 - Systems Exam Head: Present: Atraumatic, Normocephalic Pupils: Present: PERRL Extroacular Muscles: Present: EOMI Conjunctiva: Present: Normal Mouth: Present: Moist Mucous Membranes Neck: Present: Normal Range of Motion Respiratory/Chest: Present: Clear to Auscultation, Good Air Exchange. No: Respiratory Distress, Accessory Muscle Use Cardiovascular: Present: Regular Rate and Rhythm, Normal S1, S2. No: Murmurs Abdomen: No: Tenderness, Distention, Peritoneal Signs Rectal: Present: Normal Rectal Tone, Other (Female Spool Fixer: GENA Quintanilla). No: Occult Blood, Rectal Tenderness, Gross Blood, Melena, Hemorrhoids, Fissures, Nodule/Mass/Lesions Back: Present: Normal Inspection Upper Extremity: Present: Normal Inspection. No: Cyanosis, Edema Lower Extremity: Present: Normal Inspection. No: Edema Neurological: Present: GCS=15, CN II-XII Intact, Speech Normal, Motor Func Grossly Intact, Gait Normal, Memory Normal Skin: Present: Warm, Dry, Pale. No: Rashes Psychiatric: Present: Alert, Oriented x 3, Normal Insight, Normal Concentration Medical Decision Making ED Course and Treatment: 02/18/18 17:15 -Labs/type and screen/guiac -EKG -CXR -IVF @ 100cc/hr -Observe and reassess 02/18/18 18:39 -Guaiac is negative -EKGL: NSR @ 87 BPM, no ST elevation or depression, no T wave inversion. -CXR: CXR: no consolidation/pneumothorax/effusion. -Labs show no acute findings except glucose 325 (500cc bolus fluid ordered), Hgb 6.1 from 10.6 (2 units of PRBC ordered) with hct 20.0 -Mg 1.7 within normal limit -I spoke to Dr. Mayen about this case and agreed to transfuse the patient for admission. -UA ordered and no urine sample noted. -Hospitalist paged for admission. 02/18/18 18:53 -I spoke to the hospitalist Dr. Montalvo, discussed about the case/labs/radiology result, not sure about the source of the anemia this time but this can be from the polyps but the guaiac is negative at this time, he would need admission for symptomatic anemia and possibly GI consult. Dr. Montalvo agreed to admit this kiya ent and follow up on any pending labs/radiology studies. -All labs and radiology results discussed with the patient and he agreed to be admitted - Lab Interpretations I have reviewed the lab results: Yes - RAD Interpretation Radiology Orders: CXR: no consolidation/pneumothorax/effusion. Hooker Off: Radiologist - EKG Interpretation EKG Interpretation (Text): 02/18/18 18:12 NSR @ 87 BPM, no ST elevation or depression, no T wave inversion. 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 Disposition/Present on Arrival - Present on Arrival Any Indicators Present on Arrival: No History of DVT/PE: No History of Uncontrolled Diabetes: No Urinary Catheter: Yes (inserted i n or dng clear lyndsey urine) History of Decub. Ulcer: No History Surgical Site Infection Following: None - Disposition Have Diagnosis and Disposition been Completed?: Yes Diagnosis: Symptomatic anemia, Colon polyp Disposition: HOSPITALIZED Disposition Time: 18:40 Patient Plan: Admission, Observation, Telemetry Patient Problems: Current Active Problems Problem Status Onset Symptomatic anemia Acute Condition: STABLE Referrals: Emeli Arnold MD [Primary Care Provider] - Follow up with primary Forms: [employer] (Greek)
--- NOTE | 2018-02-18 17:48 | RAD ---
HISTORY: medical clearance COMPARISON: Chest x-ray performed 08/01/17 TECHNIQUE: Chest, one view. FINDINGS: LUNGS: No focal consolidation. Please note that chest x-ray has limited sensitivity for the detection of pulmonary masses. PLEURA: No significant pleural effusion identified. No definite pneumothorax . CARDIOVASCULAR: Heart size appears within normal limits. Atherosclerotic calcification of the aortic knob. OSSEOUS STRUCTURES: Mild degenerative changes. VISUALIZED UPPER ABDOMEN: Unremarkable. OTHER FINDINGS: None. IMPRESSION: No focal consolidation, significant pleural effusion, or definite pneumothorax identified.
[2018-02-18 18:07] LABS: BASO # 0.02 K/mm3 (0.0-2.0); BASO % 0.5 % (0.0-3.0); EOS # 0.2 (0.0-0.7); EOS % 4.3 % (1.5-5.0); GRAN # 2.42 (1.4-6.5); GRAN % 58.2 % (50.0-68.0); LYMPH # 1.2 (1.2-3.4); LYMPH % 28.8 % (22.0-35.0); MEAN CORPUSCULAR HEMOGLOBIN 22.3 pg (25.0-35.0); MEAN CORPUSCULAR HGB CONC 30.5 g/dl (31.0-37.0); MEAN PLATELET VOLUME 10.5 fl (7.0-11.0); MONO # 0.3 (0.1-0.6); MONO % 8.2 % (1.0-6.0); RBC 2.74 10^6/uL (3.5-6.1); RED CELL DISTRIBUTION WIDTH 15.3 % (11.5-14.5); WHITE BLOOD COUNT 4.2 10^3/ul (4.5-11.0)
[2018-02-18] MEDS: Sodium Chloride 0.9% 1,000 ML IV SCH (18:09)
[2018-02-18 18:16] LABS: HEMOGLOBIN 6.1 g/dL (14.0-18.0); INR 1.09; PARTIAL THROMBOPLASTIN TIME 27.7 Seconds (25.1-36.5); PROTHROMBIN TIME 12.5 SECONDS (9.4-12.5)
[2018-02-18 18:28] LABS: ALBUMIN 3.2 g/dL (3.0-4.8); ALT/SGPT 36 U/L (7-56); AST/SGOT 46 U/L (17-59); BLOOD UREA NITROGEN 12 mg/dL (7-21); CALCIUM 8.7 mg/dL (8.4-10.5); GFR NON-AFRICAN AMERICAN > 60
[2018-02-18] MEDS ORDERED: Sodium Chloride 0.9% 500 ML IV STA (18:42)
[2018-02-18] MEDS ORDERED: Insulin Lispro (humaLOG) MEDIUM Coverage SC SCH (20:00)
[2018-02-18] MEDS ORDERED: Dextrose 5%/0.9% NS 1,000 ML IV SCH ×2 (20:15→20:37)
[2018-02-18] MEDS ORDERED: Iohexol 240 (50 ml) ONE (20:41)
--- NOTE | 2018-02-18 21:32 | CP.PCM.HP ---
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 Patient went to PCP office for regular schedule follow up and was found to have a Hb of 6.0 on lab work; subsequently sent to [facility] for admission and transfusion. Patient denies any hortensia blood in stool, clots in stool, hemetemesis, hematochezia, and melena. Patient does report associated palpitations, nausea, and questionable 'dark' stool on BM this AM. He has previously been seen by Dr. Sousa and Dr. Jesus for GI services; Most recent endoscopy By Dr. Sousa 09/2017 showed pio's esophagus, gastritis; colonoscopy by Dr. Sousa on 09/2017 showed multiple polyps, colonic angioectasia, and internal hermorrhoids. Subsequently patient underwent R Hemicolectomy by General Surgery 10/2017. Of note patient has been admitted for prior symptoms and presentation; has had prior transfusions - most recent transfusion 2 years ago. Does not report any transfusion reaction or history of CHF. Upon ROS patient does complain of profuse watery diarrhea which began post colectomy and has been controlled with loperamide Remainder of 12 system ROS is otherwise negative. 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, Allergy: NKDA Home Rx: As in chart, has been verified by pharmacy Present on Admission - Present on Admission Any Indicators Present on Admission: No Review of Systems - Review of Systems Review of Systems: as per HPI Past Patient History - Infectious Disease Hx of Infectious Diseases: None - Past Social History Smoking Status: Never Smoked - CARDIAC Hx Cardiac Disorders: Yes Hx Hypertension: Yes - PULMONARY Hx Respiratory Disorders: No - NEUROLOGICAL Hx Neurological Disorder: Yes (diabetic neuropathy) Hx Dizziness: Yes - HEENT Hx HEENT Problems: Yes (eyeglasses) Hx Cataracts: Yes (b/l sx) Other/Comment: nasal lesion, epistaxix resolved - ENDOCRINE/METABOLIC Hx Diabetes Mellitus Type 2: Yes - HEMATOLOGICAL/ONCOLOGICAL Hx Blood Disorders: Yes Hx Anemia: Yes Hx Blood Transfusions: Yes - INTEGUMENTARY Hx Dermatological Problems: Yes Other/Comment: right abd dsg and wendi wendi sraining ss fluid, q ball in place to surgical site, surgical dressing intact - MUSCULOSKELETAL/RHEUMATOLOGICAL Hx Arthritis: Yes - GASTROINTESTINAL Hx Gastrointestinal Disorders: Yes (R COLON TUMOR) Hx Gastroesophageal Reflux: Yes Other/Comment: gi bleed, recent colonoscopy showed r colon tumor - GENITOURINARY/GYNECOLOGICAL Hx Genitourinary Disorders: Yes (dysuria) Hx Prostate Problems: Yes (bph) Hx Urinary Tract Infection: Yes - PSYCHIATRIC Hx Emotional Abuse: No Hx Physical Abuse: No Hx Substance Use: No - SURGICAL HISTORY Other/Comment: r hemicolectomy 11/03/17, cysto/bx, - ANESTHESIA Hx Anesthesia: Yes Hx Anesthesia Reactions: No Hx Malignant Hyperthermia: No Meds Allergies/Adverse Reactions: Allergies Allergy/AdvReac Type Severity Reaction Status Date / Time No Known Allergies Allergy Verified 05/13/14 11:00 Physical Exam - Constitutional Appears: Well, Non-toxic, No Acute Distress - Head Exam Head Exam: ATRAUMATIC, NORMOCEPHALIC - Eye Exam Eye Exam: EOMI, PERRL. absent: Scleral icterus - ENT Exam ENT Exam: Mucous Membranes Moist, Normal Exam - Respiratory Exam Respiratory Exam: Clear to Auscultation Bilateral, NORMAL BREATHING PATTERN. absent: Rales, Rhonchi, Wheezes, Respiratory Distress - Cardiovascular Exam Cardiovascular Exam: REGULAR RHYTHM, RRR, +S1, +S2. absent: Systolic Murmur - GI/Abdominal Exam GI & Abdominal Exam: Distended (tympanic), Hyperactive Bowel Sounds, Soft. absent: Tenderness Additional comments: Negative murphys - Extremities Exam Extremities exam: Positive for: normal inspection, pedal pulses present. Negative for: pedal edema - Back Exam Back exam: absent: CVA tenderness (L), CVA tenderness (R) - Neurological Exam Neurological exam: Alert, CN II-XII Intact, Oriented x3 - Psychiatric Exam Psychiatric exam: Normal Affect, Normal Mood - Skin Skin Exam: Dry, Intact, Normal Color, Warm Results - Vital Signs Recent Vital Signs: Last Vital Signs Temp 98.6 F 02/18/18 16:41 Pulse 78 02/18/18 20:15 Resp 18 02/18/18 20:15 BP 153/66 H 02/18/18 20:15 Pulse Ox 97 02/18/18 20:15 - Labs Result Diagrams: 02/18/18 17:20 02/18/18 17:20 Labs: Laboratory Results - last 24 hr 02/18/18 02/18/18 02/18/18 17:20 17:20 17:20 WBC 4.2 L RBC 2.74 L Hgb 6.1 L* D Hct 20.0 L* MCV 73.0 L D MCH 22.3 L MCHC 30.5 L RDW 15.3 H Plt Count 148 MPV 10.5 Gran % 58.2 Lymph % (Auto) 28.8 [place] % (Auto) 8.2 H Eos % (Auto) 4.3 Baso % (Auto) 0.5 Gran # 2.42 Lymph # (Auto) 1.2 [place] # (Auto) 0.3 Eos # (Auto) 0.2 Baso # (Auto) 0.02 PT 12.5 INR 1.09 APTT 27.7 Sodium 135 Potassium 4.7 Chloride 104 Carbon Dioxide 24 Anion Gap 13 BUN 12 Creatinine 1.0 Est GFR ( Amer) > 60 Est GFR (Non-Af Amer) > 60 Random Glucose 325 H* D Calcium 8.7 Magnesium 1.7 Total Bilirubin 0.1 L AST 46 ALT 36 Alkaline Phosphatase 192 H D Total Protein 6.4 Albumin 3.2 Globulin 3.2 Albumin/Globulin Ratio 1.0 L Blood Type Antibody Screen Crossmatch BBK History Checked 02/18/18 17:20 WBC RBC Hgb Hct MCV MCH MCHC RDW Plt Count MPV Gran % Lymph % (Auto) [place] % (Auto) Eos % (Auto) Baso % (Auto) Gran # Lymph # (Auto) [place] # (Auto) Eos # (Auto) Baso # (Auto) PT INR APTT Sodium Potassium Chloride Carbon Dioxide Anion Gap BUN Creatinine Est GFR ( Amer) Est GFR (Non-Af Amer) Random Glucose Calcium Magnesium Total Bilirubin AST ALT Alkaline Phosphatase Total Protein Albumin Globulin Albumin/Globulin Ratio Blood Type B POSITIVE Antibody Screen Negative Crossmatch See Detail BBK History Checked Patient has bt Assessment & Plan - Assessment and Plan (Free Text) Assessment: 62M w/ PMH of HTN, DM, Anemia, Colon polyps s/p R hemicolectomy w/ anastamosis (10/2017), prostatic hyperplasia presented to [facility] ED on 02/18 w/ CC of fatigue, REDDY, dizziness x2 weeks. Found to have symptomatic anemia on admission; and subsequently admitted for management of anemia requiring transfusion. PLAN: Anemia: GI Bleed vs Iron Deficiency vs Anemia of chronic disease Prev hx of anemia 2/2 GI Bleed reported by patient; Hb 6.1 Guaic negative in ED Typed and crossed 6 units // Will transfuse 2 units Transfuse if Hb <7.0 Follow CBC Q6 Follow up Iron, TIBC, Ferritin, Transferrin IVF - NS D5 @ 70cc/hr Previous Echo from 2015 - EF 55% Repeat Echo pending Protonix 40 IVP BID CTAP pending r/o source NPO except meds GI Consulted appreciate reccs Hx HTN Zestril 40 QD Hx DM Levemir 30 HS ISS Medium Q6 Fingersticks Q6 Gabepentin 300 HS Hx Prostatic hyperplasia Flomax 0.4mg QD DIET: NPO GI PPX: Protonix IVP 40 DVT PPX: SCD holding lovenox in setting of anemia Dispo: Admit to OBS Remote TELE Patient was seen, evaluated, and discussed w/ attending physician Dr. 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
[2018-02-19] MEDS: Insulin Detemir 100 units/ml Vial (Levemir) SC SCH (01:27)
[2018-02-19 02:45] LABS: IRON 30 ug/dL (45-180)
[2018-02-19 02:54] LABS: % IRON SATURATION 6 % (20-55); TOTAL IRON BINDING CAPACITY 493 ug/dL (261-462)
[2018-02-19] MEDS: Sodium Chloride 0.9% 1,000 ML IV SCH (03:30)
[2018-02-19 04:15] VITALS: BMI 25.0
[2018-02-19 07:09] LABS: BASO # 0.03 K/mm3 (0.0-2.0); BASO % 0.7 % (0.0-3.0); EOS # 0.2 (0.0-0.7); EOS % 5.6 % (1.5-5.0); GRAN # 2.28 (1.4-6.5); GRAN % 55.9 % (50.0-68.0); LYMPH # 1.2 (1.2-3.4); LYMPH % 29.7 % (22.0-35.0); MEAN CELL VOLUME 75.4 fl (80.0-105.0); MEAN CORPUSCULAR HEMOGLOBIN 23.8 pg (25.0-35.0); MEAN CORPUSCULAR HGB CONC 31.5 g/dl (31.0-37.0); MEAN PLATELET VOLUME 10.9 fl (7.0-11.0); MONO # 0.3 (0.1-0.6); MONO % 8.1 % (1.0-6.0); RBC 3.41 10^6/uL (3.5-6.1); WHITE BLOOD COUNT 4.1 10^3/ul (4.5-11.0)
[2018-02-19 07:17] LABS: HEMOGLOBIN 8.1 g/dL (14.0-18.0)
[2018-02-19 07:21] LABS: ALBUMIN 3.2 g/dL (3.0-4.8); ALT/SGPT 36 U/L (7-56); AST/SGOT 50 U/L (17-59); BLOOD UREA NITROGEN 11 mg/dL (7-21); CALCIUM 8.9 mg/dL (8.4-10.5); GFR NON-AFRICAN AMERICAN > 60; HDL CHOLESTEROL 44 mg/dL (29-60)
[2018-02-19 07:32] LABS: LDL CHOLESTEROL 115 mg/dL (0-129)
[2018-02-19] MEDS: Insulin Lispro (humaLOG) MEDIUM Coverage SC SCH ×4 (08:22→22:00)
--- NOTE | 2018-02-19 09:12 | CT ---
PROCEDURE: CT Abdomen and Pelvis without IV contrast. HISTORY: symptomatic anemia COMPARISON: CT abdomen and pelvis with IV contrast performed 03/05/17 TECHNIQUE: Contiguous axial images of the abdomen and pelvis. Oral contrast was administered. No IV contrast given. Coronal and Sagittal reformats generated and reviewed. Radiation dose: Total exam DLP = 391.88 mGy-cm. This CT exam was performed using one or more of the following dose reduction techniques: Automated exposure control, adjustment of the mA and/or kV according to patient size, and/or use of iterative reconstruction technique. FINDINGS: There is limited evaluation of the solid organs without the administration of IV contrast. Coronary artery and valvular calcifications. LOWER THORAX: No visible consolidation, pleural effusion, or pneumothorax. LIVER: Unremarkable unenhanced appearance. GALLBLADDER AND BILE DUCTS: Unremarkable unenhanced appearance. PANCREAS: Unremarkable unenhanced appearance. SPLEEN: Splenomegaly. ADRENALS: Unremarkable unenhanced appearance. KIDNEYS AND URETERS: Probable left renal cysts. No hydronephrosis or obstructing renal calculus. BLADDER: The urinary bladder appears unremarkable. REPRODUCTIVE: Unremarkable. APPENDIX: The appendix is not identified. BOWEL: The stomach is nondistended. The bowel loops appear within normal limits of caliber without evidence of intestinal obstruction. Thick-walled fluid-filled colon most prominently involving the hepatic flexure; correlate for colitis i.e. the infectious, inflammatory, ischemic. PERITONEUM: No significant free fluid. No definite free air. LYMPH NODES: No bulky lymphadenopathy identified. VASCULATURE: Dense atherosclerotic calcifications of the aorta and branches. No aortic aneurysm. BONES: Degenerative changes. Endplate sclerosis T12. OTHER FINDINGS: None. IMPRESSION: Thick-walled fluid-filled colon most prominently involving the hepatic flexure; correlate for colitis i.e. the infectious, inflammatory, ischemic. Suggest follow-up colonoscopy if indicated. Probable left renal cysts. Hepatomegaly. Splenomegaly. Additional findings as above. Preliminary impression was provided by [facility].
--- NOTE | 2018-02-19 10:02 | CARD ---
APPROVED REPORT Date of service: 02/18/2018 EKG Measurement Heart [id number] <Conclusion> Normal sinus rhythm Normal ECG
[2018-02-19 10:44] LABS: BASO # 0.02 K/mm3 (0.0-2.0); BASO % 0.5 % (0.0-3.0); EOS # 0.2 (0.0-0.7); EOS % 5.3 % (1.5-5.0); GRAN # 2.27 (1.4-6.5); GRAN % 57.5 % (50.0-68.0); HEMOGLOBIN 8.8 g/dL (14.0-18.0); LYMPH # 1.2 (1.2-3.4); LYMPH % 29.4 % (22.0-35.0); MEAN CELL VOLUME 75.6 fl (80.0-105.0); MEAN CORPUSCULAR HEMOGLOBIN 23.8 pg (25.0-35.0); MEAN CORPUSCULAR HGB CONC 31.5 g/dl (31.0-37.0); MEAN PLATELET VOLUME 10.4 fl (7.0-11.0); MONO # 0.3 (0.1-0.6); MONO % 7.3 % (1.0-6.0); RBC 3.69 10^6/uL (3.5-6.1); RED CELL DISTRIBUTION WIDTH 16.9 % (11.5-14.5)
[2018-02-19 14:14] LABS: BASO # 0.03 K/mm3 (0.0-2.0); BASO % 0.9 % (0.0-3.0); EOS # 0.2 (0.0-0.7); GRAN # 2.09 (1.4-6.5); GRAN % 59.3 % (50.0-68.0); HEMOGLOBIN 8.4 g/dL (14.0-18.0); LYMPH # 0.9 (1.2-3.4); MEAN CELL VOLUME 76.2 fl (80.0-105.0); MEAN CORPUSCULAR HEMOGLOBIN 23.5 pg (25.0-35.0); MEAN CORPUSCULAR HGB CONC 30.9 g/dl (31.0-37.0); MEAN PLATELET VOLUME 10.8 fl (7.0-11.0); MONO # 0.3 (0.1-0.6); MONO % 8.8 % (1.0-6.0); RBC 3.57 10^6/uL (3.5-6.1); RED CELL DISTRIBUTION WIDTH 16.8 % (11.5-14.5); WHITE BLOOD COUNT 3.5 10^3/ul (4.5-11.0)
--- NOTE | 2018-02-19 17:29 | CARD ---
APPROVED REPORT Date of service: 02/19/2018 EXAM: Two-dimensional and M-mode echocardiogram with Doppler and color Doppler. INDICATION EDEMA 2D DIMENSIONS Left Atrium (2D)3.8 (1.6-4.0cm)IVSd1.0 (0.7-1.1cm) LVDd4.6 (3.9-5.9cm)PWd1.3 (0.7-1.1cm) LVDs3.4 (2.5-4.0cm)FS (%) 25.3 % LVEF (%)50.1 (>50%) M-Mode DIMENSIONS Aortic Root2.70 (2.2-3.7cm)Aortic Cusp Exc.1.70 (1.5-2.0cm) Aortic Valve AoV Peak Tizozchf940.0cm/Radha Peak GR.10mmHg Mitral Valve MV E Ccmavzur073.0cm/sMV A Wfrbttyh13.3cm/sE/A ratio1.2 TDI E/Lateral E'0.0E/Medial E'0.0 Tricuspid Valve TR Peak [id number]/sTR Peak Gr.9mmHg LEFT VENTRICLE The left ventricle is normal size. There is borderline to mild concentric left ventricular hypertrophy. The left ventricular function is normal.ER-55% There is normal LV segmental wall motion. The left ventricular diastolic function is normal. No left ventricle thrombus noted on this study. There is no ventricular septal defect visualized. There is no left ventricular aneurysm. There is no mass noted in the left ventricle. RIGHT VENTRICLE The right ventricle is normal size. There is normal right ventricular wall thickness. The right ventricular systolic function is normal. ATRIA The left atrium size is normal. The right atrium size is normal. The interatrial septum is intact with no evidence for an atrial septal defect. AORTIC VALVE The aortic valve is thickened but opens well. There is trace aortic regurgitation.. There is no aortic valvular stenosis. There is no aortic valvular vegetation. MITRAL VALVE The mitral valve is thickened but opens well. Mitral regurgitation is mild. There is no mitral valve stenosis. There is no evidence of mitral valve prolapse. TRICUSPID VALVE The tricuspid valve leaflets are thickened , but open well. There is trace regurgitation. There is no tricuspid valve stenosis. There is no tricuspid valve prolapse or vegetation. PULMONIC VALVE The pulmonary valve is normal in structure. There is no pulmonic valvular regurgitation. There is no pulmonic valvular stenosis. GREAT VESSELS The aortic root is normal in size. The ascending aorta is normal in size. The pulmonary artery is normal. The IVC is normal in size and collapses >50% with inspiration. PERICARDIAL EFFUSION There is no pleural effusion. There is no pericardial effusion. <Conclusion> Normal anupam,brent Size. EF-55% Mild MR. Trace TR. No vegetation or thrombus noted.
--- NOTE | 2018-02-19 17:37 | CP.PCM.PN ---
<Taiwo Crandall - Last Filed: 02/19/18 18:49> Subjective - Date & Time of Evaluation Date of Evaluation: 02/19/18 Time of Evaluation: 17:26 - Subjective Subjective: Taiwo Crandall DO PGY1 - Internal Medicine Kettle Loader - Hospital Progress Note No acute events overnight; tolerated transfusion well w/o any reaction noted. No fevers or chills, chest pain, shortness of breath, abd pain, n/v/d/c, reported overnight. Remainder of 12 system ROS otherwise negative Objective - Vital Signs/Intake and Output Vital Signs (last 24 hours): Temp Pulse Resp BP Pulse Ox 98.1 F 88 21 156/69 H 98 02/19/18 12:00 02/19/18 14:00 02/19/18 12:00 02/19/18 12:00 02/19/18 09:00 Intake and Output: 02/19/18 02/19/18 06:59 18:59 Intake Total 495 345 Output Total 0 Balance 495 345 - Medications Medications: Current Medications Atorvastatin Calcium (Lipitor) 40 mg PO DIN [facility]I Furosemide (Lasix) 20 mg PO BID J[facility]I Gabapentin (Neurontin) 300 mg PO HS [facility]; Protocol Last Admin: 02/19/18 01:31 Dose: 300 mg Insulin Detemir (Levemir) 30 unit SC [facility] Last Admin: 02/19/18 01:27 Dose: 30 u Insulin Human Lispro (Humalog Med) 0 units SC [facility]; Protocol Last Admin: 02/19/18 12:43 Dose: 1 unit Lisinopril (Zestril) 40 mg PO DAILY [facility] Last Admin: 02/19/18 09:57 Dose: 40 mg Pantoprazole Sodium (Protonix Inj) 40 mg IVP BID [facility] Last Admin: 02/19/18 09:56 Dose: 40 mg Tamsulosin HCl (Flomax) 0.4 mg PO DAILY [facility] Last Admin: 02/19/18 09:57 Dose: 0.4 mg - Labs Labs: 02/19/18 13:55 02/19/18 06:30 PT 12.5 SECONDS (9.4-12.5) 02/18/18 17:20 INR 1.09 02/18/18 17:20 APTT 27.7 Seconds (25.1-36.5) 02/18/18 17:20 Physical Exam - Constitutional Appears: Well, Non-toxic, No Acute Distress - Head Exam Head Exam: ATRAUMATIC, NORMOCEPHALIC - Eye Exam Eye Exam: EOMI, PERRL. absent: Scleral icterus - ENT Exam ENT Exam: Mucous Membranes Moist, Normal Exam - Respiratory Exam Respiratory Exam: Clear to Auscultation Bilateral, NORMAL BREATHING PATTERN. absent: Rales, Rhonchi, Wheezes, Respiratory Distress - Cardiovascular Exam Cardiovascular Exam: REGULAR RHYTHM, RRR, +S1, +S2, Systolic Murmur noted - GI/Abdominal Exam GI & Abdominal Exam: Abdomen is still distended + tympanic however much improved in presentation from day prior; He Additional comments: Negative murphys - Extremities Exam Extremities exam: Positive for: normal inspection, pedal pulses present. Negative for: pedal edema - Back Exam Back exam: absent: CVA tenderness (L), CVA tenderness (R) - Neurological Exam Neurological exam: Alert, CN II-XII Intact, Oriented x3 - Psychiatric Exam Psychiatric exam: Normal Affect, Normal Mood - Skin Skin Exam: Dry, Intact, Normal Color, Warm Assessment and Plan - Assessment and Plan (Free Text) Assessment: 62M w/ PMH of HTN, DM, Anemia, Colon polyps s/p R hemicolectomy w/ anastamosis (10/2017), prostatic hyperplasia presented to [facility] ED on 02/18 w/ CC of fatigue, REDDY, dizziness x2 weeks. Found to have symptomatic anemia on admission; and subsequently admitted for management of anemia requiring transfusion. Patient is status post 2u transfusion on 02/19 stable; pending GI Consult PLAN: Anemia: GI Bleed vs Iron Deficiency vs Anemia of chronic disease Prev hx of anemia 2/2 GI Bleed reported by patient; Hb 6.1 now 8.4 ; patient is hemodynamically stable Guaic negative in ED Typed and crossed 6 units // S/p 2 u tranfusion - tolerated well no s/s of transfusion reaction Transfuse if Hb <7.0 Cont Follow CBC Q6 Iron low, TIBC high, Ferritin pending DC IVF Previous Echo from 2014 - EF 55%; Repeat Echo EF 50%, MR + TR C/w Protonix 40 IVP BID CTAP - Colitis - infectious vs inflammatory vs ischemic NPO except meds GI Consulted appreciate reccs Hx HTN Zestril 40 QD Hx DM Holding Levemir 30 HS ISS Medium ACHS Fingersticks ACHS Gabepentin 300 HS Hx Prostatic hyperplasia Flomax 0.4mg QD DIET: CLD GI PPX: Protonix IVP 40 DVT PPX: SCD holding lovenox in setting of anemia Dispo: Change status to inpatient Remote TELE Patient was seen, evaluated, and discussed w/ attending physician Dr. Vicki Crandall DO PGY1 Internal Medicine Kettle Loader <Vicki Crandall R - Last Filed: 02/23/18 11:02> Objective - Vital Signs/Intake and Output Vital Signs (last 24 hours): Temp Pulse Resp BP Pulse Ox 97.8 F 69 12 135/58 L 99 02/22/18 14:34 02/23/18 09:23 02/22/18 14:34 02/23/18 09:24 02/22/18 14:34 Intake and Output: 02/23/18 02/23/18 06:59 18:59 Intake Total 1440 Balance 1440 - Medications Medications: Current Medications Atorvastatin Calcium (Lipitor) 40 mg PO DIN [facility] Last Admin: 02/22/18 18:51 Dose: 40 mg Furosemide (Lasix) 20 mg PO BID [facility] Last Admin: 02/23/18 09:24 Dose: 20 mg Gabapentin (Neurontin) 300 mg PO HS [facility]; Protocol Last Admin: 02/22/18 21:24 Dose: 300 mg Sodium Chloride (Sodium Chloride 0.9%) 1,000 mls @ 100 mls/hr IV .Q10H [facility] Last Admin: 02/23/18 05:32 Dose: 100 mls/hr Ceftriaxone Sodium (Rocephin 1 Gram Ivpb) 1 gm in 100 mls @ 100 mls/hr IVPB DAILY [facility]; Protocol Last Admin: 02/23/18 09:25 Dose: 100 mls/hr Insulin Detemir (Levemir) 30 unit SC HS [facility] Last Admin: 02/22/18 21:24 Dose: 30 u Insulin Human Regular (Humulin R High) 0 units SC [facility]; Protocol Last Admin: 02/23/18 08:00 Dose: 2 units Lisinopril (Zestril) 40 mg PO DAILY [facility] Last Admin: 02/23/18 09:25 Dose: 40 mg Nadolol (Corgard) 20 mg PO DAILY [facility] Last Admin: 10/16/18 09:23 Dose: 20 mg Pantoprazole Sodium (Protonix Inj) 40 mg IVP BID [facility] Last Admin: 02/23/18 09:24 Dose: 40 mg Tamsulosin HCl (Flomax) 0.4 mg PO DAILY [facility] Last Admin: 02/23/18 09:24 Dose: 0.4 mg - Labs Labs: 02/23/18 05:20 02/23/18 05:20 PT 12.5 SECONDS (9.4-12.5) 02/18/18 17:20 INR 1.09 02/18/18 17:20 APTT 27.7 Seconds (25.1-36.5) 02/18/18 17:20 Attending/Attestation - Attestation I have personally seen and examined this patient.: Yes I have fully participated in the care of the patient.: Yes I have reviewed all pertinent clinical information, including history, physical exam and plan: Yes Notes (Text): Patient seen and examined by me with resident at 12:15PM on 02/19/18 with resident. Case including HPI, physical exam, and assessment and plan discussed with resident. Agree with above with following additions/corrections. Patient is a 62 year old male with past medical history significant for hypertension, DM2, anemia, and colon polyps s/p right hemicolectomy with anastomosis that presented to the emergency room for fatigue, dyspnea on exertion, and dizziness. Patient states he is feeling much better. No longer feels fatigued. No shortness of breath or dizziness. Denies any chest pain or palpitations. No headaches or change in vision. No fevers or chills. No dysuria. Patient denies any blood in his stool. Physical exam: Gen: Awake and alert lying in bed in no acute distress HEENT: Normocephalic, atraumatic. Extraocular muscles intact, pupils equal and reactive. No scleral icterus. Oropharynx is pink and moist. No pharyngeal erythema or exudate appreciated. Neck is supple. Cardiovascular: Normal rhythm. Normal S1, S2. No murmurs, rubs, or gallops appreciated Pulmonary: Normal respiratory effort. No rhonchi, rales, or wheezing appreciated. Gastrointestinal: Soft. Nondistended. Nontender. Positive bowel sounds all 4 quadrants, no guarding. Musculoskeletal: Moves all extremities. No calf tenderness. No edema appreciated Central nervous system: AAOx3, CN2-12 grossly intact Dermatologic: Skin warm and dry. Assessment and plan: Patient is a 62 year old male with past medical history significant for hypertension, DM2, anemia, and colon polyps s/p right hemicolectomy with anastomosis that presented to the emergency room for fatigue, dyspnea on exertion, and dizziness. 1. Symptomatic anemia. H&H improved s/p 2 units PRBCs. Iron low, ferritin pending. GI consulted, follow up recommendations. CT abd/pelvis per radiologist showed thick walled fluid-filled colon most prominently involving the hepatic flexure; correlate for colitis; probable left renal cysts; hepatomegaly; splenomegaly. Continue protonix. Patient afebrile, no leukocytosis, patient not having abnormal bowel movements. Monitor CBC 2. Hypertension. Continue home Lisinopril and Lasix. 2D echo per plumber gasfitter showed normal chamber size, EF 55%, mild MR, trace TR, no vegetation or thrombus noted. 3. DM2. Continue insulin sliding scale. Monitor accuchecks. 4. BPH. Continue Flomax Case discussed in detail with patient regarding current diagnosis and treatment plan. All questions answered.
[2018-02-19 20:40] LABS: BASO # 0.02 K/mm3 (0.0-2.0); BASO % 0.5 % (0.0-3.0); EOS # 0.2 (0.0-0.7); EOS % 5.5 % (1.5-5.0); GRAN # 2.15 (1.4-6.5); GRAN % 56.3 % (50.0-68.0); HEMOGLOBIN 8.8 g/dL (14.0-18.0); LYMPH # 1.2 (1.2-3.4); LYMPH % 30.6 % (22.0-35.0); MEAN CELL VOLUME 75.9 fl (80.0-105.0); MEAN CORPUSCULAR HEMOGLOBIN 23.6 pg (25.0-35.0); MEAN CORPUSCULAR HGB CONC 31.1 g/dl (31.0-37.0); MEAN PLATELET VOLUME 11.4 fl (7.0-11.0); MONO # 0.3 (0.1-0.6); MONO % 7.1 % (1.0-6.0); RBC 3.73 10^6/uL (3.5-6.1); RED CELL DISTRIBUTION WIDTH 16.9 % (11.5-14.5); WHITE BLOOD COUNT 3.8 10^3/ul (4.5-11.0)
[2018-02-20 02:39] LABS: BASO # 0.02 K/mm3 (0.0-2.0); BASO % 0.5 % (0.0-3.0); EOS # 0.2 (0.0-0.7); EOS % 5.9 % (1.5-5.0); GRAN # 2.01 (1.4-6.5); HEMOGLOBIN 8.6 g/dL (14.0-18.0); LYMPH # 1.3 (1.2-3.4); LYMPH % 33.1 % (22.0-35.0); MEAN CELL VOLUME 75.8 fl (80.0-105.0); MEAN CORPUSCULAR HEMOGLOBIN 24.2 pg (25.0-35.0); MEAN PLATELET VOLUME 10.5 fl (7.0-11.0); MONO # 0.3 (0.1-0.6); MONO % 8.5 % (1.0-6.0); RBC 3.55 10^6/uL (3.5-6.1); RED CELL DISTRIBUTION WIDTH 16.8 % (11.5-14.5); WHITE BLOOD COUNT 3.9 10^3/ul (4.5-11.0)
[2018-02-20 07:31] LABS: BASO # 0.02 K/mm3 (0.0-2.0); BASO % 0.6 % (0.0-3.0); EOS # 0.2 (0.0-0.7); EOS % 5.3 % (1.5-5.0); GRAN # 1.98 (1.4-6.5); GRAN % 61.3 % (50.0-68.0); HEMOGLOBIN 8.7 g/dL (14.0-18.0); LYMPH # 0.9 (1.2-3.4); LYMPH % 26.9 % (22.0-35.0); MEAN CELL VOLUME 76.3 fl (80.0-105.0); MEAN CORPUSCULAR HGB CONC 31.4 g/dl (31.0-37.0); MONO # 0.2 (0.1-0.6); MONO % 5.9 % (1.0-6.0); PLATELET COUNT 155 10^3/uL (120.0-450.0); RBC 3.63 10^6/uL (3.5-6.1); RED CELL DISTRIBUTION WIDTH 16.9 % (11.5-14.5); WHITE BLOOD COUNT 3.2 10^3/ul (4.5-11.0)
[2018-02-20] MEDS: Insulin Lispro (humaLOG) MEDIUM Coverage SC SCH ×4 (07:49→21:40)
[2018-02-20 08:03] LABS: ALT/SGPT 48 U/L (7-56); AST/SGOT 74 U/L (17-59); BLOOD UREA NITROGEN 10 mg/dL (7-21); CALCIUM 8.8 mg/dL (8.4-10.5); GFR NON-AFRICAN AMERICAN > 60
[2018-02-20 14:28] LABS: BASO # 0.03 K/mm3 (0.0-2.0); BASO % 0.7 % (0.0-3.0); EOS # 0.1 (0.0-0.7); EOS % 3.3 % (1.5-5.0); GRAN # 2.53 (1.4-6.5); GRAN % 60.3 % (50.0-68.0); HEMOGLOBIN 8.9 g/dL (14.0-18.0); LYMPH # 1.2 (1.2-3.4); LYMPH % 29.3 % (22.0-35.0); MEAN CELL VOLUME 76.1 fl (80.0-105.0); MEAN CORPUSCULAR HEMOGLOBIN 23.9 pg (25.0-35.0); MEAN CORPUSCULAR HGB CONC 31.4 g/dl (31.0-37.0); MEAN PLATELET VOLUME 11.3 fl (7.0-11.0); MONO # 0.3 (0.1-0.6); MONO % 6.4 % (1.0-6.0); RBC 3.72 10^6/uL (3.5-6.1); WHITE BLOOD COUNT 4.2 10^3/ul (4.5-11.0)
--- NOTE | 2018-02-20 22:39 | CP.PCM.PN ---
Subjective - Date & Time of Evaluation Date of Evaluation: 02/20/18 Time of Evaluation: 22:39 - Subjective Subjective: Taiwo Crandall DO PGY1 - Internal Medicine News Commentator - Hospital Progress Note Patient seen and examined at bedside this morning No acute events reported overnight; No acute issues voiced by patient at this time. Patient doing well this morning. In bed relaxed; Patient requesting to sign out AMA yesterday and this AM however patient was redirected into staying for tentative colonoscopy on Thursday. No c/o abd pain, n/v/d/c, dizziness, Reported BM today dark in color. Remainder 12 system ROS negative. Objective - Vital Signs/Intake and Output Vital Signs (last 24 hours): Temp Pulse Resp BP Pulse Ox 81 F L 80 20 126/67 97 02/20/18 18:00 02/20/18 21:50 02/20/18 18:00 02/20/18 18:00 02/20/18 09:00 Intake and Output: 02/20/18 02/21/18 18:59 06:59 Intake Total 540 Balance 540 - Medications Medications: Current Medications Atorvastatin Calcium (Lipitor) 40 mg PO DIN [facility] Last Admin: 02/20/18 17:24 Dose: 40 mg Furosemide (Lasix) 20 mg PO BID [facility] Last Admin: 02/20/18 17:26 Dose: 20 mg Gabapentin (Neurontin) 300 mg PO HS [facility]; Protocol Last Admin: 02/20/18 21:05 Dose: 300 mg Insulin Detemir (Levemir) 30 unit SC [facility] Last Admin: 02/19/18 01:27 Dose: 30 u Insulin Human Lispro (Humalog Med) 0 units SC [facility]; Protocol Last Admin: 02/20/18 21:40 Dose: 3 unit Lisinopril (Zestril) 40 mg PO DAILY [facility] Last Admin: 02/20/18 09:34 Dose: 40 mg Pantoprazole Sodium (Protonix Inj) 40 mg IVP BID [facility] Last Admin: 02/20/18 17:27 Dose: 40 mg Tamsulosin HCl (Flomax) 0.4 mg PO DAILY [facility] Last Admin: 02/20/18 09:34 Dose: 0.4 mg - Labs Labs: 02/20/18 14:15 02/20/18 06:00 PT 12.5 SECONDS (9.4-12.5) 02/18/18 17:20 INR 1.09 02/18/18 17:20 APTT 27.7 Seconds (25.1-36.5) 02/18/18 17:20 Physical Exam - Constitutional Appears: Well, Non-toxic, No Acute Distress - Head Exam Head Exam: ATRAUMATIC, NORMOCEPHALIC - Eye Exam Eye Exam: EOMI, PERRL. absent: Scleral icterus - ENT Exam ENT Exam: Mucous Membranes Moist, Normal Exam - Respiratory Exam Respiratory Exam: Clear to Auscultation Bilateral, NORMAL BREATHING PATTERN. absent: Rales, Rhonchi, Wheezes, Respiratory Distress - Cardiovascular Exam Cardiovascular Exam: REGULAR RHYTHM, RRR, +S1, +S2, Systolic Murmur noted - GI/Abdominal Exam GI & Abdominal Exam: Abdomen distended + tympanic - mildly Additional comments: Negative murphys - Extremities Exam Extremities exam: Positive for: normal inspection, pedal pulses present. Negative for: pedal edema - Back Exam Back exam: absent: CVA tenderness (L), CVA tenderness (R) - Neurological Exam Neurological exam: Alert, CN II-XII Intact, Oriented x3 - Psychiatric Exam Psychiatric exam: Normal Affect, Normal Mood - Skin Skin Exam: Dry, Intact, Normal Color, Warm Assessment and Plan - Assessment and Plan (Free Text) Assessment: 62M w/ PMH of HTN, DM, Anemia, Colon polyps s/p R hemicolectomy w/ anastamosis (10/2017), prostatic hyperplasia presented to [facility] ED on 02/18 w/ CC of fatigue, REDDY, dizziness x2 weeks. Found to have symptomatic anemia on admission; and subsequently admitted for management of anemia requiring transfusion. Patient is status post 2u transfusion on 02/19; Hb has been stable and climbing post transfusion. GI visited patient this afternoon and plan to scope on Thursday. PLAN: Anemia: GI Bleed vs Iron Deficiency vs Anemia of chronic disease vs Colitis Prev hx of anemia 2/2 GI Bleed reported by patient; CTAP - Colitis - infectious vs inflammatory vs ischemic Patient tolerating diet well as outpt and tolerated regular diet well inpt; Hb trending up; HD stable Guaic negative in ED S/p 2 u tranfusion - tolerated well no s/s of transfusion reaction Transfuse if Hb <7.0 Iron low, TIBC high, Ferritin wnl Previous Echo from 2015 - EF 55%; Repeat Echo EF 50%, MR + TR C/w Protonix 40 IVP BID GI Consulted appreciate reccs Hx HTN C/w Zestril 40 QD Hx DM Holding Levemir 30 HS ISS Medium ACHS Fingersticks ACHS Gabepentin 300 HS Hx Prostatic hyperplasia Flomax 0.4mg QD DIET: Full diet; heart healthy low carb GI PPX: Protonix IVP 40 DVT PPX: SCD holding lovenox in setting of anemia Dispo: Inpt Remote TELE Patient was seen, examined and discussed w/ attending physician Dr. Brandy Crandall DO PGY1 Internal Medicine News Commentator - Pager [phone]
[2018-02-21 06:51] LABS: BASO # 0.02 K/mm3 (0.0-2.0); BASO % 0.5 % (0.0-3.0); EOS # 0.2 (0.0-0.7); EOS % 4.6 % (1.5-5.0); GRAN # 2.63 (1.4-6.5); GRAN % 60.3 % (50.0-68.0); HEMOGLOBIN 9.2 g/dL (14.0-18.0); LYMPH # 1.1 (1.2-3.4); LYMPH % 25.9 % (22.0-35.0); MEAN CELL VOLUME 76.8 fl (80.0-105.0); MEAN CORPUSCULAR HEMOGLOBIN 23.2 pg (25.0-35.0); MEAN CORPUSCULAR HGB CONC 30.3 g/dl (31.0-37.0); MEAN PLATELET VOLUME 11.3 fl (7.0-11.0); MONO # 0.4 (0.1-0.6); MONO % 8.7 % (1.0-6.0); RBC 3.96 10^6/uL (3.5-6.1); RED CELL DISTRIBUTION WIDTH 17.3 % (11.5-14.5); WHITE BLOOD COUNT 4.4 10^3/ul (4.5-11.0)
[2018-02-21 08:11] LABS: ALBUMIN 3.1 g/dL (3.0-4.8); ALT/SGPT 40 U/L (7-56); AST/SGOT 46 U/L (17-59); BLOOD UREA NITROGEN 16 mg/dL (7-21); GFR NON-AFRICAN AMERICAN > 60
--- NOTE | 2018-02-21 08:34 | CP.PCM.PN ---
<Taiwo Crandall - Last Filed: 02/21/18 14:46> Subjective - Date & Time of Evaluation Date of Evaluation: 02/21/18 Time of Evaluation: 08:34 - Subjective Subjective: Taiwo Crandall DO PGY1 - Internal Medicine Spice Cleaner - Hospital Progress Note Patient seen and examined at bedside this morning No acute events reported overnight; No acute issues voiced by patient at this time. No events on tele monitor overnight, no complaints of bloody bm, or abd pain, n/v/d/c, tolerating diet well. Will be on CLD today and bowel prep in BM Remainder of 12system ROS negative at this time Objective - Vital Signs/Intake and Output Vital Signs (last 24 hours): Temp Pulse Resp BP Pulse Ox 97.8 F 67 18 117/59 L 96 02/21/18 06:00 02/21/18 06:00 02/21/18 06:00 02/21/18 06:00 02/21/18 06:00 Intake and Output: 02/21/18 02/21/18 06:59 18:59 Intake Total 360 Output Total 2 Balance 358 - Medications Medications: Current Medications Atorvastatin Calcium (Lipitor) 40 mg PO DIN [facility] Last Admin: 02/20/18 17:24 Dose: 40 mg Furosemide (Lasix) 20 mg PO BID [facility] Last Admin: 02/20/18 17:26 Dose: 20 mg Gabapentin (Neurontin) 300 mg PO HS [facility]; Protocol Last Admin: 02/20/18 21:05 Dose: 300 mg Insulin Detemir (Levemir) 30 unit SC [facility] Last Admin: 02/19/18 01:27 Dose: 30 u Insulin Human Regular (Humulin R High) 0 units SC [facility]; Protocol Lisinopril (Zestril) 40 mg PO DAILY [facility] Last Admin: 02/20/18 09:34 Dose: 40 mg Pantoprazole Sodium (Protonix Inj) 40 mg IVP BID [facility] Last Admin: 02/20/18 17:27 Dose: 40 mg Tamsulosin HCl (Flomax) 0.4 mg PO DAILY [facility] Last Admin: 02/20/18 09:34 Dose: 0.4 mg - Labs Labs: 02/21/18 06:00 02/21/18 06:00 PT 12.5 SECONDS (9.4-12.5) 10/11/18 17:20 INR 1.09 02/18/18 17:20 APTT 27.7 Seconds (25.1-36.5) 02/18/18 17:20 Physical Exam - Constitutional Appears: Well, Non-toxic, No Acute Distress - Head Exam Head Exam: ATRAUMATIC, NORMOCEPHALIC - Eye Exam Eye Exam: EOMI, PERRL. absent: Scleral icterus - ENT Exam ENT Exam: Mucous Membranes Moist, Normal Exam - Respiratory Exam Respiratory Exam: Clear to Auscultation Bilateral, NORMAL BREATHING PATTERN. ab sent: Rales, Rhonchi, Wheezes, Respiratory Distress - Cardiovascular Exam Cardiovascular Exam: REGULAR RHYTHM, RRR, +S1, +S2, Systolic Murmur noted - GI/Abdominal Exam GI & Abdominal Exam: Nontender, soft, no rebounding, guarding, Additional comments: Negative murphys - Extremities Exam Extremities exam: Positive for: normal inspection, pedal pulses present. Negative for: pedal edema - Back Exam Back exam: absent: CVA tenderness (L), CVA tenderness (R) - Neurological Exam Neurological exam: Alert, CN II-XII Intact, Oriented x3 - Psychiatric Exam Psychiatric exam: Normal Affect, Normal Mood - Skin Skin Exam: Dry, Intact, Normal Color, Warm Assessment and Plan - Assessment and Plan (Free Text) Assessment: 62M w/ PMH of HTN, DM, Anemia, Colon polyps s/p R hemicolectomy w/ anastamosis (10/2017), prostatic hyperplasia presented to [facility] [place]18 w/ CC of fatigue, REDDY, dizziness x2 weeks. Found to have symptomatic anemia on admission; and subsequently admitted for management of anemia requiring transfusion. Patient is status post 2u transfusion on 02/19; Hb has been stable and climbing post transfusion. GI visited patient this afternoon and plan to scope on Thursday. PLAN: Anemia: GI Bleed vs Iron Deficiency vs Anemia of chronic disease vs Colitis Prev hx of anemia 2/2 GI Bleed reported by patient; CTAP - Colitis - infectious vs inflammatory vs ischemic Patient tolerating diet well as outpt and tolerated regular diet well inpt; Hb trending up; HD stable Guaic negative in ED S/p 2 u tranfusion - tolerated well no s/s of transfusion reaction Transfuse if Hb <7.0 Iron low, TIBC high, Ferritin wnl Previous Echo from 2015 - EF 55%; Repeat Echo EF 50%, MR + TR C/w Protonix 40 IVP BID GI following appreciate reccs Hx HTN C/w Zestril 40 QD Hx DM Holding Levemir 30 HS Sugars elevated this AM; will start Levemir 15 HS ISS Medium ACHS Fingersticks ACHS Gabepentin 300 HS Hx Prostatic hyperplasia Flomax 0.4mg QD DIET: Full diet; heart healthy low carb GI PPX: Protonix IVP 40 DVT PPX: SCD holding lovenox in setting of anemia Dispo: Inpt Remote TELE Patient was seen, examined and discussed w/ attending physician Dr. Brandy Crandall DO PGY1 Internal Medicine Spice Cleaner - Pager [phone] <Fred Nava - Last Filed: 02/21/18 17:47> Objective - Vital Signs/Intake and Output Vital Signs (last 24 hours): Temp Pulse Resp BP Pulse Ox 98.3 F 72 20 140/70 96 02/21/18 12:00 02/21/18 14:00 02/21/18 12:00 02/21/18 17:34 02/21/18 06:00 Intake and Output: 02/21/18 02/21/18 06:59 18:59 Intake Total 360 Output Total 2 Balance 358 - Medications Medications: Current Medications Atorvastatin Calcium (Lipitor) 40 mg PO DIN [facility] Last Admin: 02/21/18 17:37 Dose: 40 mg Bisacodyl (Dulcolax) 10 mg PO ONCE ONE Stop: 02/22/18 06:01 Furosemide (Lasix) 20 mg PO BID [facility] Last Admin: 02/21/18 17:34 Dose: 20 mg Gabapentin (Neurontin) 300 mg PO HS [facility]; Protocol Last Admin: 02/20/18 21:05 Dose: 300 mg Insulin Detemir (Levemir) 30 unit SC HS [facility] Last Admin: 02/19/18 01:27 Dose: 30 u Insulin Detemir (Levemir) 15 unit SC [facility] Insulin Human Regular (Humulin R High) 0 units SC [facility]; Protocol Last Admin: 02/21/18 17:35 Dose: 2 units Lisinopril (Zestril) 40 mg PO DAILY [facility] Last Admin: 02/21/18 10:14 Dose: 40 mg Pantoprazole Sodium (Protonix Inj) 40 mg IVP BID [facility] Last Admin: 02/21/18 17:37 Dose: 40 mg Tamsulosin HCl (Flomax) 0.4 mg PO DAILY [facility] Last Admin: 02/21/18 10:14 Dose: 0.4 mg - Labs Labs: 02/21/18 06:00 02/21/18 06:00 PT 12.5 SECONDS (9.4-12.5) 02/18/18 17:20 INR 1.09 02/18/18 17:20 APTT 27.7 Seconds (25.1-36.5) 02/18/18 17:20 Attending/Attestation - Attestation I have personally seen and examined this patient.: Yes I have fully participated in the care of the patient.: Yes I have reviewed all pertinent clinical information, including history, physical exam and plan: Yes
[2018-02-21] MEDS: Insulin Reg-HIGH-Coverage SC SCH ×4 (08:40→21:49)
--- NOTE | 2018-02-21 13:14 | CP.PCM.CON ---
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 Patient report REDDY, lightheadedness and dizziness for about the last two weeks. He states that his bowel movement have been black in color as well over that period of time. He denies any CP, abdominal pain, N/V, hematochezia, weight loss, dysphagia or NSAID use. 12 point ROS negative other than stated above MHx: See above SurgHx: See above and TURP Meds: Reviewed in MAR FamHx: Denied GI probs SocHx: Former smoker, remote illicits, but negative x3 now All: NKDA Past Patient History - Infectious Disease Hx of Infectious Diseases: None - Past Social History Smoking Status: Never Smoked - CARDIAC Hx Cardiac Disorders: Yes Hx Hypertension: Yes - PULMONARY Hx Respiratory Disorders: No - NEUROLOGICAL Hx Neurological Disorder: Yes (diabetic neuropathy) Hx Dizziness: Yes - HEENT Hx HEENT Problems: Yes (eyeglasses) Hx Cataracts: Yes (b/l sx) Other/Comment: nasal lesion, epistaxix resolved - RENAL Hx Chronic Kidney Disease: No - ENDOCRINE/METABOLIC Hx Diabetes Mellitus Type 2: Yes - HEMATOLOGICAL/ONCOLOGICAL Hx Blood Disorders: Yes Hx Anemia: Yes Hx Blood Transfusions: Yes - INTEGUMENTARY Hx Dermatological Problems: Yes Other/Comment: right abd dsg and wendi wendi sraining ss fluid, q ball in place to surgical site, surgical dressing intact - MUSCULOSKELETAL/RHEUMATOLOGICAL Hx Arthritis: Yes - GASTROINTESTINAL Hx Gastrointestinal Disorders: Yes (R COLON TUMOR) Hx Gastroesophageal Reflux: Yes Other/Comment: gi bleed, recent colonoscopy showed r colon tumor - GENITOURINARY/GYNECOLOGICAL Hx Genitourinary Disorders: Yes (dysuria) Hx Prostate Problems: Yes (bph) Hx Urinary Tract Infection: Yes - PSYCHIATRIC Hx Emotional Abuse: No Hx Physical Abuse: No Hx Substance Use: No - SURGICAL HISTORY Other/Comment: r hemicolectomy 11/03/17, cysto/bx, - ANESTHESIA Hx Anesthesia: Yes Hx Anesthesia Reactions: No Hx Malignant Hyperthermia: No Meds Allergies/Adverse Reactions: Allergies Allergy/AdvReac Type Severity Reaction Status Date / Time No Known Allergies Allergy Verified 05/13/14 11:00 - Medications Medications: Current Medications Atorvastatin Calcium (Lipitor) 40 mg PO DIN [facility] Last Admin: 02/20/18 17:24 Dose: 40 mg Furosemide (Lasix) 20 mg PO BID [facility] Last Admin: 02/21/18 10:14 Dose: 20 mg Gabapentin (Neurontin) 300 mg PO [facility]; Protocol Last Admin: 02/20/18 21:05 Dose: 300 mg Insulin Detemir (Levemir) 30 unit SC [facility] Last Admin: 02/19/18 01:27 Dose: 30 u Insulin Detemir (Levemir) 15 unit SC [facility] Insulin Human Regular (Humulin R High) 0 units SC [facility]; Protocol Last Admin: 02/21/18 12:27 Dose: 10 units Lisinopril (Zestril) 40 mg PO DAILY [facility] Last Admin: 02/21/18 10:14 Dose: 40 mg Pantoprazole Sodium (Protonix Inj) 40 mg IVP BID [facility] Last Admin: 02/21/18 10:14 Dose: 40 mg Polyethylene Glycol/Electrolytes (Golytely) 4,000 ml PO ONCE ONE Stop: 02/21/18 14:01 Tamsulosin HCl (Flomax) 0.4 mg PO DAILY [facility] Last Admin: 02/21/18 10:14 Dose: 0.4 mg Physical Exam - Constitutional Appears: Well, Non-toxic - Head Exam Head Exam: ATRAUMATIC, NORMAL INSPECTION - Eye Exam Eye Exam: EOMI. absent: Conjunctival injection, Scleral icterus - ENT Exam ENT Exam: Mucous Membranes Moist, Normal External Ear Exam. absent: Mucous Membranes Dry - Respiratory Exam Respiratory Exam: Clear to Auscultation Bilateral, NORMAL BREATHING PATTERN. absent: Accessory Muscle Use, Respiratory Distress - Cardiovascular Exam Cardiovascular Exam: REGULAR RHYTHM, RRR. absent: Bradycardia, Tachycardia - GI/Abdominal Exam GI & Abdominal Exam: Normal Bowel Sounds, Soft. absent: Bruit, Diminished Bowel Sounds, Distended, Firm, Guarding, Hernia, Organomegaly, Pulsatile Mass, Rebound, Rigid, Tenderness Additional comments: R side abd horizontal surgical scar - Rectal Exam Rectal Exam: Deferred - Extremities Exam Extremities exam: Positive for: normal inspection. Negative for: pedal edema - Neurological Exam Neurological exam: Alert, CN II-XII Intact - Psychiatric Exam Psychiatric exam: Normal Affect, Normal Mood - Skin Skin Exam: Normal Color, Warm Results - Vital Signs Recent Vital Signs: Last Vital Signs Temp 98.3 F 02/21/18 12:00 Pulse 72 02/21/18 12:00 Resp 20 02/21/18 12:00 BP 147/74 02/21/18 12:00 Pulse Ox 96 02/21/18 06:00 - Labs Result Diagrams: 02/21/18 06:00 02/21/18 06:00 Labs: Laboratory Results - last 24 hr 02/20/18 02/20/18 02/20/18 14:15 16:19 21:35 WBC 4.2 L D RBC 3.72 Hgb 8.9 L Hct 28.3 L MCV 76.1 L MCH 23.9 L MCHC 31.4 RDW 17.0 H Plt Count 147 MPV 11.3 H Gran % 60.3 Lymph % (Auto) 29.3 [place] % (Auto) 6.4 H Eos % (Auto) 3.3 Baso % (Auto) 0.7 Gran # 2.53 Lymph # (Auto) 1.2 [place] # (Auto) 0.3 Eos # (Auto) 0.1 Baso # (Auto) 0.03 Sodium Potassium Chloride Carbon Dioxide Anion Gap BUN Creatinine Est GFR ( Amer) Est GFR (Non-Af Amer) POC Glucose (mg/dL) 254 H 390 H Random Glucose Calcium Total Bilirubin AST ALT Alkaline Phosphatase Total Protein Albumin Globulin Albumin/Globulin Ratio 02/21/18 02/21/18 02/21/18 06:00 06:00 07:31 WBC 4.4 L RBC 3.96 Hgb 9.2 L Hct 30.4 L MCV 76.8 L MCH 23.2 L MCHC 30.3 L RDW 17.3 H Plt Count 159 MPV 11.3 H Gran % 60.3 Lymph % (Auto) 25.9 [place] % (Auto) 8.7 H Eos % (Auto) 4.6 Baso % (Auto) 0.5 Gran # 2.63 Lymph # (Auto) 1.1 L [place] # (Auto) 0.4 Eos # (Auto) 0.2 Baso # (Auto) 0.02 Sodium 135 Potassium 4.4 Chloride 101 Carbon Dioxide 27 Anion Gap 11 BUN 16 Creatinine 1.0 Est GFR ( Amer) > 60 Est GFR (Non-Af Amer) > 60 POC Glucose (mg/dL) 327 H Random Glucose 322 H* D Calcium 9.0 Total Bilirubin 0.5 AST 46 ALT 40 Alkaline Phosphatase 186 H Total Protein 6.4 Albumin 3.1 Globulin 3.3 Albumin/Globulin Ratio 1.0 L 02/21/18 11:43 WBC RBC Hgb Hct MCV MCH MCHC RDW Plt Count MPV Gran % Lymph % (Auto) [place] % (Auto) Eos % (Auto) Baso % (Auto) Gran # Lymph # (Auto) [place] # (Auto) Eos # (Auto) Baso # (Auto) Sodium Potassium Chloride Carbon Dioxide Anion Gap BUN Creatinine Est GFR ( Amer) Est GFR (Non-Af Amer) POC Glucose (mg/dL) 343 H Random Glucose Calcium Total Bilirubin AST ALT Alkaline Phosphatase Total Protein Albumin Globulin Albumin/Globulin Ratio Assessment & Plan - Assessment and Plan (Free Text) Assessment: 62 yo Male with h/o tubulovillous adenoma s/p R hemicolectomy presenting with symptomatic anemia and melena. # Acute Microcytic Anemia due to GI Bleed: Suspect upper given reported melena, though BUN not elevated. At risk for anastamotic bleed or AVM given history depending on exact location of bleed. Certainly has risk factors for lower GI bleeding given history of AVM and polyps. # H/o Tubulovillous adenoma of cecum: s/p resection October 2017. Plan: - PPI IV BID - Golytely prep today - Dulcolax in AM - Clear Liq Diet - Plan for EGD+CSPY on 02/22/18 - NPO except meds at midnight Pt discussed with Dr. Fortune; see attestation for further recs/changes. <Eloy Fortune V - Last Filed: 02/22/18 01:02> Meds - Medications Medications: Current Medications Atorvastatin Calcium (Lipitor) 40 mg PO DIN [facility] Last Admin: 02/21/18 17:37 Dose: 40 mg Bisacodyl (Dulcolax) 10 mg PO ONCE ONE Stop: 02/22/18 06:01 Furosemide (Lasix) 20 mg PO BID [facility] Last Admin: 02/21/18 17:34 Dose: 20 mg Gabapentin (Neurontin) 300 mg PO HS [facility]; Protocol Last Admin: 02/21/18 21:50 Dose: 300 mg Insulin Detemir (Levemir) 30 unit SC [facility] Last Admin: 02/19/18 01:27 Dose: 30 u Insulin Detemir (Levemir) 15 unit SC [facility] Last Admin: 02/21/18 21:51 Dose: 15 unit Insulin Human Regular (Humulin R High) 0 units SC [facility]; Protocol Last Admin: 02/21/18 21:49 Dose: Not Given Lisinopril (Zestril) 40 mg PO DAILY [facility] Last Admin: 02/21/18 10:14 Dose: 40 mg Pantoprazole Sodium (Protonix Inj) 40 mg IVP BID [facility] Last Admin: 02/21/18 17:37 Dose: 40 mg Tamsulosin HCl (Flomax) 0.4 mg PO DAILY [facility] Last Admin: 02/21/18 10:14 Dose: 0.4 mg Results - Vital Signs Recent Vital Signs: Last Vital Signs Temp 98.7 F 02/21/18 23:32 Pulse 89 02/21/18 23:32 Resp 18 02/21/18 23:32 BP 116/77 02/21/18 23:32 Pulse Ox 98 02/21/18 23:32 - Labs Result Diagrams: 02/21/18 06:00 02/21/18 06:00 Labs: Laboratory Results - last 24 hr 02/18/18 02/20/18 02/21/18 17:20 21:35 06:00 WBC 4.4 L RBC 3.96 Hgb 9.2 L Hct 30.4 L MCV 76.8 L MCH 23.2 L MCHC 30.3 L RDW 17.3 H Plt Count 159 MPV 11.3 H Gran % 60.3 Lymph % (Auto) 25.9 [place] % (Auto) 8.7 H Eos % (Auto) 4.6 Baso % (Auto) 0.5 Gran # 2.63 Lymph # (Auto) 1.1 L [place] # (Auto) 0.4 Eos # (Auto) 0.2 Baso # (Auto) 0.02 Sodium Potassium Chloride Carbon Dioxide Anion Gap BUN Creatinine Est GFR ( Amer) Est GFR (Non-Af Amer) POC Glucose (mg/dL) 390 H Random Glucose Calcium Total Bilirubin AST ALT Alkaline Phosphatase Total Protein Albumin Globulin Albumin/Globulin Ratio Crossmatch See Detail 02/21/18 02/21/18 02/21/18 06:00 07:31 11:43 WBC RBC Hgb Hct MCV MCH MCHC RDW Plt Count MPV Gran % Lymph % (Auto) [place] % (Auto) Eos % (Auto) Baso % (Auto) Gran # Lymph # (Auto) [place] # (Auto) Eos # (Auto) Baso # (Auto) Sodium 135 Potassium 4.4 Chloride 101 Carbon Dioxide 27 Anion Gap 11 BUN 16 Creatinine 1.0 Est GFR ( Amer) > 60 Est GFR (Non-Af Amer) > 60 POC Glucose (mg/dL) 327 H 343 H Random Glucose 322 H* D Calcium 9.0 Total Bilirubin 0.5 AST 46 ALT 40 Alkaline Phosphatase 186 H Total Protein 6.4 Albumin 3.1 Globulin 3.3 Albumin/Globulin Ratio 1.0 L Crossmatch 02/21/18 16:33 WBC RBC Hgb Hct MCV MCH MCHC RDW Plt Count MPV Gran % Lymph % (Auto) [place] % (Auto) Eos % (Auto) Baso % (Auto) Gran # Lymph # (Auto) [place] # (Auto) Eos # (Auto) Baso # (Auto) Sodium Potassium Chloride Carbon Dioxide Anion Gap BUN Creatinine Est GFR ( Amer) Est GFR (Non-Af Amer) POC Glucose (mg/dL) 173 H Random Glucose Calcium Total Bilirubin AST ALT Alkaline Phosphatase Total Protein Albumin Globulin Albumin/Globulin Ratio Crossmatch Attending/Attestation - Attestation I have personally seen and examined this patient.: Yes I have fully participated in the care of the patient.: Yes I have reviewed all pertinent clinical information: Yes Notes (Text): This is an addendum to GI consult report dictated by the GI Fellow.The patient was seen and examined earlier. Medical records, lab studies, imagings were reviewed. Last 24 hours events reviewed. Agreed with the above treatment plan as outlined in GI Fellow 's notes with the addition of the following This patient admitted with severe anemia Hb of 6.1 Status post transfusion Continue PPI Pervious endoscopic evaluations noted - history of AVM colonic, multiple polyps Status post right hemicolectomy CT scan reviewed discussed with the patient at length Finally patient agreed to EGD and colonoscopy which will be scheduled on Thursday02/22/18 00:59
[2018-02-21] MEDS ORDERED: Peg-Electrolyte Oral Soln 4L (Golytely) PO ONE (14:00)
[2018-02-21] MEDS ORDERED: Insulin Detemir 100 units/ml Vial (Levemir) SC SCH (22:00)
[2018-02-22] MEDS ORDERED: Bisacodyl 5mg EC Tab PO ONE (06:00)
[2018-02-22 07:36] LABS: ALBUMIN 3.1 g/dL (3.0-4.8); ALT/SGPT 36 U/L (7-56); AST/SGOT 54 U/L (17-59); BLOOD UREA NITROGEN 11 mg/dL (7-21); CALCIUM 8.8 mg/dL (8.4-10.5); GFR NON-AFRICAN AMERICAN > 60
[2018-02-22 07:37] LABS: BASO # 0.02 K/mm3 (0.0-2.0); BASO % 0.6 % (0.0-3.0); EOS # 0.2 (0.0-0.7); EOS % 6.4 % (1.5-5.0); GRAN # 1.67 (1.4-6.5); GRAN % 50.9 % (50.0-68.0); HEMOGLOBIN 9.1 g/dL (14.0-18.0); LYMPH % 31.7 % (22.0-35.0); MEAN CELL VOLUME 75.9 fl (80.0-105.0); MEAN CORPUSCULAR HEMOGLOBIN 23.6 pg (25.0-35.0); MEAN CORPUSCULAR HGB CONC 31.1 g/dl (31.0-37.0); MEAN PLATELET VOLUME 11.7 fl (7.0-11.0); MONO # 0.3 (0.1-0.6); MONO % 10.4 % (1.0-6.0); RBC 3.86 10^6/uL (3.5-6.1); RED CELL DISTRIBUTION WIDTH 17.5 % (11.5-14.5); WHITE BLOOD COUNT 3.3 10^3/ul (4.5-11.0)
[2018-02-22] MEDS: Insulin Reg-HIGH-Coverage SC SCH ×4 (09:12→21:25)
[2018-02-22] MEDS ORDERED: Propofol 10 mg/ml Inj (20 ML) ONE (13:19)
[2018-02-22] MEDS ORDERED: Lidocaine PF 2% (5 ml) Inj (For Cardiac Arrhy) ONE (13:20)
[2018-02-22] MEDS ORDERED: Phenylephrine 10 mg/ml Inj ONE (13:53)
[2018-02-22 14:18] VITALS: RESP 12; TEMP 97.8
[2018-02-22 14:35] VITALS: O2SAT 99
[2018-02-22] MEDS: cefTRIAXone 1 gm 1 GM/100 ML BAG IVPB SCH (15:51)
[2018-02-22] MEDS: Sodium Chloride 0.9% 1,000 ML IV SCH (15:53)
--- NOTE | 2018-02-22 17:14 | CP.PCM.PN ---
<Taiwo Crandall - Last Filed: 02/22/18 17:26> Subjective - Date & Time of Evaluation Date of Evaluation: 02/22/18 Time of Evaluation: 17:09 - Subjective Subjective: Taiwo Crandall DO PGY1 - Internal Medicine Director Of Publications - Hospital Progress Note Patient seen and examined at bedside this morning No acute events reported overnight; No acute issues voiced by patient at this time. Patient awaiting EGD this AM Denies chest pain, sob, abd pain, n/v/d/c, dizziness. Reported clear BMs last night 12 system ROS negative. Objective - Vital Signs/Intake and Output Vital Signs (last 24 hours): Temp Pulse Resp BP Pulse Ox 97.8 F 81 12 149/62 99 02/22/18 14:34 02/22/18 14:34 02/22/18 14:34 02/22/18 14:34 02/22/18 14:34 Intake and Output: 02/22/18 02/22/18 06:59 18:59 Intake Total 780 Balance 780 - Medications Medications: Current Medications Atorvastatin Calcium (Lipitor) 40 mg PO DIN [facility] Last Admin: 02/21/18 17:37 Dose: 40 mg Furosemide (Lasix) 20 mg PO BID [facility] Last Admin: 02/22/18 09:57 Dose: 20 mg Gabapentin (Neurontin) 300 mg PO HS [facility]; Protocol Last Admin: 02/21/18 21:50 Dose: 300 mg Sodium Chloride (Sodium Chloride 0.9%) 1,000 mls @ 100 mls/hr IV .Q10H [facility] Last Admin: 02/22/18 15:53 Dose: 100 mls/hr Ceftriaxone Sodium (Rocephin 1 Gram Ivpb) 1 gm in 100 mls @ 100 mls/hr IVPB DAILY [facility]; Protocol Last Admin: 02/22/18 15:51 Dose: 100 mls/hr Iron Sucrose 200 mg/ Sodium (Chloride) 110 mls @ 110 mls/hr IVPB ONCE ONE Stop: 02/23/18 09:59 Insulin Detemir (Levemir) 30 unit SC HS [facility] Last Admin: 02/19/18 01:27 Dose: 30 u Insulin Detemir (Levemir) 15 unit SC HS [facility] Last Admin: 02/21/18 21:51 Dose: 15 unit Insulin Human Regular (Humulin R High) 0 units SC ACHS [facility]; Protocol Last Admin: 02/22/18 12:56 Dose: Not Given Lisinopril (Zestril) 40 mg PO DAILY [facility] Last Admin: 02/22/18 09:57 Dose: 40 mg Nadolol (Corgard) 20 mg PO DAILY [facility] Last Admin: 02/22/18 15:51 Dose: 20 mg Pantoprazole Sodium (Protonix Inj) 40 mg IVP BID [facility] Last Admin: 02/22/18 09:57 Dose: 40 mg Tamsulosin HCl (Flomax) 0.4 mg PO DAILY [facility] Last Admin: 02/22/18 09:57 Dose: 0.4 mg - Labs Labs: 02/22/18 05:30 02/22/18 05:30 PT 12.5 SECONDS (9.4-12.5) 02/18/18 17:20 INR 1.09 02/18/18 17:20 APTT 27.7 Seconds (25.1-36.5) 02/18/18 17:20 Physical Exam - Constitutional Appears: Well, Non-toxic, No Acute Distress - Head Exam Head Exam: ATRAUMATIC, NORMOCEPHALIC - Eye Exam Eye Exam: EOMI, PERRL. absent: Scleral icterus - ENT Exam ENT Exam: Mucous Membranes Moist, Normal Exam - Respiratory Exam Respiratory Exam: Clear to Auscultation Bilateral, NORMAL BREATHING PATTERN. absent: Rales, Rhonchi, Wheezes, Respiratory Distress - Cardiovascular Exam Cardiovascular Exam: REGULAR RHYTHM, RRR, +S1, +S2, Systolic Murmur noted - GI/Abdominal Exam GI & Abdominal Exam: Nontender, soft, no rebounding, guarding, Additional comments: Negative murphys - Extremities Exam Extremities exam: Positive for: normal inspection, pedal pulses present. Ne gative for: pedal edema - Back Exam Back exam: absent: CVA tenderness (L), CVA tenderness (R) - Neurological Exam Neurological exam: Alert, CN II-XII Intact, Oriented x3 - Psychiatric Exam Psychiatric exam: Normal Affect, Normal Mood - Skin Skin Exam: Dry, Intact, Normal Color, Warm Assessment and Plan - Assessment and Plan (Free Text) Assessment: 62M w/ PMH of HTN, DM, Anemia, Colon polyps s/p R hemicolectomy w/ anastamosis (10/2017), prostatic hyperplasia presented to [facility] on 02/18 w/ CC of fatigue, REDDY, dizziness x2 weeks. Found to have symptomatic anemia on admission; and subsequently admitted for management of anemia requiring transfusion. Patient is status post 2u transfusion on 02/19; Hb has been stable and climbing post transfusion. Patient is status post endoscopy and colonoscopy PLAN: Anemia: GI Bleed vs Iron Deficiency vs Anemia of chronic disease vs Colitis Prev hx of anemia 2/2 GI Bleed reported by patient; CTAP - Colitis - infectious vs inflammatory vs ischemic Patient tolerating diet well as outpt and tolerated regular diet well inpt; Hb trending up; HD stable Guaic negative in ED S/p 2 u tranfusion - tolerated well no s/s of transfusion reaction Transfuse if Hb <7.0 Iron low, TIBC high, Ferritin wnl Start Venofer QD Previous Echo from 2014 - EF 55%; Repeat Echo EF 50%, MR + TR C/w Protonix 40 IVP BID Colitis Patient underwent EGD and Colonoscopy 02/22 -EGD: non bleeding small esophageal varicies, Esophageal mucosal changes classified; Erythema mucosa in gastric body biopsied -Colonoscopy: Internal hemorrhoids sessile polyps vs adenomtous polyp found in anastamosis 6-10mm in size -Low sodium diet -SBP PPX - Ceftriaxone 1gm QD -Nadalol -Cont w/ PPI for suspected Bonds's -Ordered hep screen -Prelim Abd Duplex result = negative -Abd u/s - no acute findings related to/ accounting for clinical presentatio; hepatic steatosis w/o focal liver abnormality Hx HTN C/w Zestril 40 QD Hx DM Resumed Levemir 30 HS ISS Medium ACHS Fingersticks ACHS Gabepentin 300 HS Hx Prostatic hyperplasia Flomax 0.4mg QD DIET: Full diet; heart healthy low carb GI PPX: Protonix IVP 40 DVT PPX: SCD holding lovenox in setting of anemia Dispo: Inpt Remote TELE Patient was seen, examined and discussed w/ attending physician Dr. Jamee Crandall DO PGY1 Internal Medicine Director Of Publications - Pager [phone] <Zeny Mancuso - Last Filed: 02/23/18 16:50> Objective - Vital Signs/Intake and Output Vital Signs (last 24 hours): Temp Pulse Resp BP Pulse Ox 97.8 F 69 12 135/58 L 99 02/22/18 14:34 02/23/18 09:23 02/22/18 14:34 02/23/18 09:24 02/22/18 14:34 Intake and Output: 02/23/18 02/23/18 06:59 18:59 Intake Total 1440 1420 Output Total 700 Balance 1440 720 - Medications Medications: Current Medications Atorvastatin Calcium (Lipitor) 40 mg PO DIN [facility] Last Admin: 02/22/18 18:51 Dose: 40 mg Furosemide (Lasix) 20 mg PO BID [facility] Last Admin: 02/23/18 09:24 Dose: 20 mg Gabapentin (Neurontin) 300 mg PO HS [facility]; Protocol Last Admin: 02/22/18 21:24 Dose: 300 mg Sodium Chloride (Sodium Chloride 0.9%) 1,000 mls @ 100 mls/hr IV .Q10H [facility] Last Admin: 02/23/18 05:32 Dose: 100 mls/hr Insulin Detemir (Levemir) 30 unit SC [facility] Last Admin: 02/22/18 21:24 Dose: 30 u Insulin Human Regular (Humulin R High) 0 units SC [facility]; Protocol Last Admin: 02/23/18 12:35 Dose: 10 units Lisinopril (Zestril) 40 mg PO DAILY [facility] Last Admin: 02/23/18 09:25 Dose: 40 mg Nadolol (Corgard) 20 mg PO DAILY [facility] Last Admin: 02/23/18 09:23 Dose: 20 mg Pantoprazole Sodium (Protonix Inj) 40 mg IVP BID [facility] Last Admin: 02/23/18 09:24 Dose: 40 mg Tamsulosin HCl (Flomax) 0.4 mg PO DAILY [facility] Last Admin: 02/23/18 09:24 Dose: 0.4 mg - Labs Labs: 02/23/18 05:20 02/23/18 05:20 PT 12.5 SECONDS (9.4-12.5) 02/18/18 17:20 INR 1.09 02/18/18 17:20 APTT 27.7 Seconds (25.1-36.5) 02/18/18 17:20 Attending/Attestation - Attestation I have personally seen and examined this patient.: Yes I have fully participated in the care of the patient.: Yes I have reviewed all pertinent clinical information, including history, physical exam and plan: Yes Notes (Text): 10/16/18 16:47 attending note; Patient seen examined with resident. Patient is alert and awake. Currently nothing by mouth for EGD and colonoscopy. Patient is a 62 year old male with past medical history significant for hypertension, DM2, anemia, and colon polyps s/p right hemicolectomy with anastomosis that presented to the emergency room for fatigue. 1. Symptomatic anemia. patient got 2 units of PRBCs. Hemoglobin improved from 6.1 to 9.1. no active bleeding noted. GI evaluation appreciated. CT abd/pelvis showed thick walled fluid-filled colon most prominently involving the hepatic flexure; correlate for colitis; probable left renal cysts; hepatomegaly; splenomegaly. Continue protonix. Plan for EGD and colonoscopy today. 2. Hypertension. Continue home Lisinopril and Lasix. 2D echo showed normal chamber size, EF 55%, mild MR, trace TR, no vegetation or thrombus noted. 3. DM2. Continue insulin sliding scale. Monitor accuchecks. 4. BPH. Continue Flomax upon discharge the patient will follow-up with PMD .
--- NOTE | 2018-02-22 17:58 | US ---
Date of service: 02/22/2018 HISTORY: varices on EGD, eval for cirrhosis and PVT COMPARISON: 02/19/2018 CT abdomen and pelvis. TECHNIQUE: Sonographic evaluation of the abdomen. FINDINGS: LIVER: Measures 13.0 cm. Hepatopedal blood flow. Fatty infiltration manifest ultrasonographically as increased echogenicity of the liver parenchyma. No mass. No intrahepatic bile duct dilatation. GALLBLADDER: Unremarkable. No gallstones. COMMON BILE DUCT: Measures 2.2 mm. No stones. No dilatation. PANCREAS: Unremarkable as visualized. No mass. No ductal dilatation. RIGHT KIDNEY: Measures 4.1 x 11.1cm. Normal echogenicity. No calculus, mass, or hydronephrosis. LEFT KIDNEY: Measures 4.8 x 11.2cm. Mild splenomegaly. Orthogonal measurements 6.7 x 13.5 cm SPLEEN: Normal in size and contour. No mass. AORTA: No aneurysmal dilatation. IVC: Unremarkable. OTHER FINDINGS: None. IMPRESSION: No acute findings related to/accounting for the clinical presentation. Hepatic steatosis without focal liver abnormality. Mild splenomegaly.
--- NOTE | 2018-02-22 18:55 | US ---
PROCEDURE: Portal vein duplex ultrasound. CLINICAL HISTORY: Cirrhosis. Deteriorating liver function. Evaluate for portal vein thrombosis. PHYSICIAN(S): Santiago Rausch M.D. FINDINGS: The extrahepatic portal vein is patent with hepatopetal flow. No sonographic evidence for thrombus or obstruction is seen. The 3 hepatic veins are visualized centrally and patent. The hepatic artery is prominent and patent The liver parenchyma is somewhat heterogeneous. No ascites is seen. The spleen was not imaged. IMPRESSION: 1. Patent portal vein with hepatopetal flow.
[2018-02-22] MEDS: Insulin Detemir 100 units/ml Vial (Levemir) SC SCH (21:24)
[2018-02-23] MEDS: Sodium Chloride 0.9% 1,000 ML IV SCH (05:32)
[2018-02-23 06:41] LABS: BASO # 0.03 K/mm3 (0.0-2.0); BASO % 0.9 % (0.0-3.0); EOS # 0.1 (0.0-0.7); EOS % 3.6 % (1.5-5.0); GRAN # 1.95 (1.4-6.5); GRAN % 57.8 % (50.0-68.0); HEMOGLOBIN 8.9 g/dL (14.0-18.0); LYMPH # 0.9 (1.2-3.4); LYMPH % 27.3 % (22.0-35.0); MEAN CELL VOLUME 77.5 fl (80.0-105.0); MEAN CORPUSCULAR HEMOGLOBIN 23.8 pg (25.0-35.0); MEAN CORPUSCULAR HGB CONC 30.7 g/dl (31.0-37.0); MEAN PLATELET VOLUME 11.2 fl (7.0-11.0); MONO # 0.4 (0.1-0.6); MONO % 10.4 % (1.0-6.0); RBC 3.74 10^6/uL (3.5-6.1); RED CELL DISTRIBUTION WIDTH 17.5 % (11.5-14.5); WHITE BLOOD COUNT 3.4 10^3/ul (4.5-11.0)
[2018-02-23 07:24] LABS: ALB/GLOB RATIO 0.9 (1.1-1.8); ALBUMIN 2.8 g/dL (3.0-4.8); ALT/SGPT 42 U/L (7-56); AST/SGOT 39 U/L (17-59); BLOOD UREA NITROGEN 15 mg/dL (7-21); CALCIUM 8.4 mg/dL (8.4-10.5); GFR NON-AFRICAN AMERICAN > 60
[2018-02-23] MEDS: Insulin Reg-HIGH-Coverage SC SCH ×2 (08:00→12:35)
[2018-02-23] MEDS: cefTRIAXone 1 gm 1 GM/100 ML BAG IVPB SCH (09:25)
[2018-02-23 09:31] VITALS: BP 135/58; PULSE 69
--- NOTE | 2018-02-23 10:52 | CP.PCM.PN ---
<Andrew Cartwright - Last Filed: 02/23/18 12:11> Subjective - Date & Time of Evaluation Date of Evaluation: 02/23/18 Time of Evaluation: 08:30 - Subjective Subjective: PGY-4 GI Fellow Prog Note Pt sitting in bedside chair when seen this AM. No complaints. Eager for DC. Reported yellow-cali brown stool this AM. Expressed understanding of close follow-up. 5 point ROS negative other than stated above Objective - Vital Signs/Intake and Output Vital Signs (last 24 hours): Temp Pulse Resp BP Pulse Ox 97.8 F 69 12 135/58 L 99 02/22/18 14:34 02/23/18 09:23 02/22/18 14:34 02/23/18 09:24 02/22/18 14:34 Intake and Output: 02/23/18 02/23/18 06:59 18:59 Intake Total 1440 Balance 1440 - Medications Medications: Current Medications Atorvastatin Calcium (Lipitor) 40 mg PO DIN [facility] Last Admin: 02/22/18 18:51 Dose: 40 mg Furosemide (Lasix) 20 mg PO BID [facility] Last Admin: 02/23/18 09:24 Dose: 20 mg Gabapentin (Neurontin) 300 mg PO HS [facility]; Protocol Last Admin: 02/22/18 21:24 Dose: 300 mg Sodium Chloride (Sodium Chloride 0.9%) 1,000 mls @ 100 mls/hr IV .Q10H [facility] Last Admin: 02/23/18 05:32 Dose: 100 mls/hr Ceftriaxone Sodium (Rocephin 1 Gram Ivpb) 1 gm in 100 mls @ 100 mls/hr IVPB DAILY [facility]; Protocol Last Admin: 02/23/18 09:25 Dose: 100 mls/hr Insulin Detemir (Levemir) 30 unit SC [facility] Last Admin: 02/22/18 21:24 Dose: 30 u Insulin Human Regular (Humulin R High) 0 units SC [facility]; Protocol Last Admin: 02/23/18 08:00 Dose: 2 units Lisinopril (Zestril) 40 mg PO DAILY [facility] Last Admin: 02/23/18 09:25 Dose: 40 mg Nadolol (Corgard) 20 mg PO DAILY [facility] Last Admin: 02/23/18 09:23 Dose: 20 mg Pantoprazole Sodium (Protonix Inj) 40 mg IVP BID [facility] Last Admin: 02/23/18 09:24 Dose: 40 mg Tamsulosin HCl (Flomax) 0.4 mg PO DAILY [facility] Last Admin: 02/23/18 09:24 Dose: 0.4 mg - Labs Labs: 02/23/18 05:20 02/23/18 05:20 PT 12.5 SECONDS (9.4-12.5) 02/18/18 17:20 INR 1.09 02/18/18 17:20 APTT 27.7 Seconds (25.1-36.5) 02/18/18 17:20 - Constitutional Appears: Well, Non-toxic, No Acute Distress - Head Exam Head Exam: ATRAUMATIC, NORMAL INSPECTION - Eye Exam Eye Exam: EOMI, Normal appearance. absent: Conjunctival injection - ENT Exam ENT Exam: Mucous Membranes Moist, Normal External Ear Exam. absent: Mucous Membranes Dry - Respiratory Exam Respiratory Exam: NORMAL BREATHING PATTERN. absent: Accessory Muscle Use, Respiratory Distress - GI/Abdominal Exam GI & Abdominal Exam: Distended (mildly), Soft, Normal Bowel Sounds. absent: Bruit, Firm, Guarding, Rigid, Tenderness, Mass, Organomegaly, Pulsatile Mass, Rebound Assessment and Plan - Assessment and Plan (Free Text) Assessment: 62 yo Male with h/o tubulovillous adenoma s/p R hemicolectomy presenting with symptomatic anemia and melena. # Acute Microcytic Anemia due to GI Bleed: On admission, suspected upper given reported melena, though BUN not elevated. At risk for anastomotic bleed or AVM given history depending on exact location of bleed. Certainly has risk factors for lower GI bleeding given history of AVM and polyps. EGD and CSPY on 02/22/18 with small esophageal varices, possible short segement of velez's; R sided polyps at/near anastamotic site. 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 # Portal HTN, evidenced by Esophageal Varices: Seen on EGD. No stigmata of bleeding; so unlikely was cause of bleed. Started on nadalol. Unclear cause of pHTN, but suspect liver fibrosis as no cirrhosis seen on CT/US. Doppler negative for PVT and Budd Chiari. 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 No biopsies taken since overlies varices. Pt already on PPI. # Colon polyps: Biopsied on 02/22. While some may have been granulation tissue related to anastomosis, cannot rule pre-cancerous lesion or even malignancy itself. Plan: - PPI PO daily for suspected Velez's, no biopsies since over varices - F/u colon polyp pathology - Cont nadalol for EV ppx - Continue 7 day course of third gen cephalosporin or fluoroquinolone for SBP ppx given GI bleed in portal HTN - Counseled pt on importance to follow up with primary care and consider going to [facility] for further liver evaluation. Pt expressed understanding. - Viral Hep panel pending; recommend vaccination as outpatient if not immune to Hep A and Hep B Pt discussed with Dr. Fortune; see attestation for further recs/changes. <Eloy Fortune V - Last Filed: 02/23/18 20:44> Objective - Vital Signs/Intake and Output Vital Signs (last 24 hours): Temp Pulse Resp BP Pulse Ox 97.8 F 69 12 135/58 L 99 02/22/18 14:34 02/23/18 09:23 02/22/18 14:34 02/23/18 09:24 02/22/18 14:34 Intake and Output: 02/23/18 02/24/18 18:59 06:59 Intake Total 1420 Output Total 700 Balance 720 - Labs Labs: 02/23/18 05:20 02/23/18 05:20 PT 12.5 SECONDS (9.4-12.5) 02/18/18 17:20 INR 1.09 02/18/18 17:20 APTT 27.7 Seconds (25.1-36.5) 02/18/18 17:20 Attending/Attestation - Attestation I have personally seen and examined this patient.: Yes I have fully participated in the care of the patient.: Yes I have reviewed all pertinent clinical information, including history, physical exam and plan: Yes Notes (Text): This is an addendum to GI progress report dictated by the GI Fellow.The patient was seen and examined earlier. Medical records, lab studies, imagings were reviewed. Last 24 hours events reviewed. 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
[2018-02-23 12:15] LABS: HEPATITIS B SURFACE AG Negative (NEGATIVE)
[2018-02-23 12:21] LABS: HEPATITIS A IGM NEGATIVE (NEGATIVE); HEPATITIS B CORE AB NEGATIVE (NEGATIVE)
[2018-02-23 12:32] LABS: HEPATITIS C ANTIBODY NEGATIVE (NEGATIVE)
--- NOTE | 2018-02-23 14:05 | CP.PCM.DIS ---
Provider - Provider Date of Admission: 02/19/18 19:16 Attending physician: Zeny Mancuso MD Primary care physician: Emeli Lacey MD Hospital Course - Lab Results Lab Results: Most Recent Lab Values WBC 3.4 10^3/ul (4.5-11.0) L 02/23/18 05:20 RBC 3.74 10^6/uL (3.5-6.1) 02/23/18 05:20 Hgb 8.9 g/dL (14.0-18.0) L 02/23/18 05:20 Hct 29.0 % (42.0-52.0) L 02/23/18 05:20 MCV 77.5 fl (80.0-105.0) L 02/23/18 05:20 MCH 23.8 pg (25.0-35.0) L 02/23/18 05:20 MCHC 30.7 g/dl (31.0-37.0) L 02/23/18 05:20 RDW 17.5 % (11.5-14.5) H 02/23/18 05:20 Plt Count 146 10^3/uL (120.0-450.0) 02/23/18 05:20 MPV 11.2 fl (7.0-11.0) H 02/23/18 05:20 Gran % 57.8 % (50.0-68.0) 02/23/18 05:20 Lymph % (Auto) 27.3 % (22.0-35.0) 02/23/18 05:20 Ralls % (Auto) 10.4 % (1.0-6.0) H 02/23/18 05:20 Eos % (Auto) 3.6 % (1.5-5.0) 02/23/18 05:20 Baso % (Auto) 0.9 % (0.0-3.0) 02/23/18 05:20 Gran # 1.95 (1.4-6.5) 02/23/18 05:20 Lymph # (Auto) 0.9 (1.2-3.4) L 02/23/18 05:20 Ralls # (Auto) 0.4 (0.1-0.6) 02/23/18 05:20 Eos # (Auto) 0.1 (0.0-0.7) 02/23/18 05:20 Baso # (Auto) 0.03 K/mm3 (0.0-2.0) 02/23/18 05:20 PT 12.5 SECONDS (9.4-12.5) 02/18/18 17:20 INR 1.09 02/18/18 17:20 APTT 27.7 Seconds (25.1-36.5) 02/18/18 17:20 Sodium 137 mmol/L (132-148) 02/23/18 05:20 Potassium 4.2 mmol/L (3.6-5.0) 02/23/18 05:20 Chloride 106 mmol/L (98-107) 02/23/18 05:20 Carbon Dioxide 25 mmol/L (21-33) 02/23/18 05:20 Anion Gap 10 (10-20) 02/23/18 05:20 BUN 15 mg/dL (7-21) 02/23/18 05:20 Creatinine 1.0 mg/dl (0.8-1.5) 02/23/18 05:20 Est GFR ( Amer) > 60 02/23/18 05:20 Est GFR (Non-Af Amer) > 60 02/23/18 05:20 POC Glucose (mg/dL) 323 mg/dL (65-110) H 02/23/18 12:19 Random Glucose 194 mg/dL (70-110) H 02/23/18 05:20 Hemoglobin A1c 8.4 % (4.2-6.5) H 02/19/18 06:30 Calcium 8.4 mg/dL (8.4-10.5) 02/23/18 05:20 Phosphorus 3.5 mg/dL (2.5-4.5) 02/19/18 06:30 Magnesium 1.8 mg/dL (1.7-2.2) 02/19/18 06:30 Iron 30 ug/dL (45-180) L 02/18/18 17:20 TIBC 493 ug/dL (261-462) H 02/18/18 17:20 % Saturation 6 % (20-55) L 02/18/18 17:20 Transferrin 388.16 mg/dL (206-381) H 02/18/18 17:20 Ferritin 6.5 ng/mL 02/18/18 17:20 Total Bilirubin 0.2 mg/dL (0.2-1.3) 02/23/18 05:20 AST 39 U/L (17-59) 02/23/18 05:20 ALT 42 U/L (7-56) 02/23/18 05:20 Alkaline Phosphatase 158 U/L (38-126) H 02/23/18 05:20 Total Protein 6.0 g/dL (5.8-8.3) 02/23/18 05:20 Albumin 2.8 g/dL (3.0-4.8) L 02/23/18 05:20 Globulin 3.2 gm/dL 02/23/18 05:20 Albumin/Globulin Ratio 0.9 (1.1-1.8) L 02/23/18 05:20 Triglycerides 179 mg/dL (35-160) H 02/19/18 06:30 Cholesterol 213 mg/dL (130-200) H 02/19/18 06:30 LDL Cholesterol Direct 115 mg/dL (0-129) 02/19/18 06:30 HDL Cholesterol 44 mg/dL (29-60) 02/19/18 06:30 Hepatitis A IgM Ab Negative (NEGATIVE) 02/22/18 05:30 Hep Bs Antigen Negative (NEGATIVE) 02/22/18 05:30 Hep B Core IgM Ab Negative (NEGATIVE) 02/22/18 05:30 Hepatitis C Antibody Negative (NEGATIVE) 02/22/18 05:30 Blood Type B POSITIVE 02/18/18 17:20 Antibody Screen Negative 02/18/18 17:20 Crossmatch See Detail 02/18/18 17:20 BBK History Checked Patient has bt 02/18/18 17:20 - Hospital Course Hospital Course: symp anemia hb 6 in office trans 2u prbc hb 8; stable scope GI varicies, polyps, no active bleed - nadolol, ppi, path follow up Discharge Exam - Head Exam Head Exam: ATRAUMATIC, NORMAL INSPECTION Discharge Plan - Discharge Medications Prescriptions: Levofloxacin [Levaquin] 500 mg PO DAILY #5 tablet Nadolol [Corgard] 20 mg PO DAILY #14 tab Pantoprazole [Protonix EC Tab] 40 mg PO DAILY #14 ect - Follow Up Plan Condition: STABLE Disposition: DISCHARGED TO HOME CARE Instructions: Bonds's Esophagus, Colon Polyps, Esophageal Varices, Diabetes Exchange Diet, Anemia Caused by Low Iron, Adult (DC), Carbohydrate Counting Diet, Diabetic Neuropathy (DC), Nerve Damage Caused by Diabetes Additional Instructions: Please follow up with your primary care doctor, Dr. Magaña, within 3-5 days for post discharge follow up Please follow up with a avian keeper within one week of discharge for recommended follow up. You will need to schedule an outpatient EGD for monitoring in 3-6 months. If you do not have a avian keeper, please either call your insurance company to obtain a list of avian keeper's that are in network for you or ask your primary care doctor for a referral. It has been recommended that you follow up with a surgical corsetier for further workup of your anemia (low blood count). This is a stable but chronic condition that will need monitoring. If you do not have a surgical corsetier, please either call your insurance company to obtain a list of hematologists that are in network for you or ask your primary care doctor for a referral. You are being sent home with two new medications: 1. Levaquin 500mg once daily for seven days. Please complete the full course of this antibiotic. 2. Nadolol 20mg once daily. You have been given two weeks of this medication so you will need to follow up with your primary care doctor for a refill We have also refilled your protonix prescription for two weeks as our avian keeper that saw you while admitted recommended strict adherence with taking this medication. Please avoid any alcohol consumption If your symptoms return, please seek emergency medical attention immediately. Referrals: Carlee Magaña DO [Doctor Osteopathy] - Emeli Arnold MD [Primary Care Provider] -
== END 2018-02-23 16:59 | disposition home health service (06) | DRG 395 ==
LOC: ED 16:21 → ERH 18:52 → 2RNO 02-19 02:25 → OBSVTOIN 02-19 19:16
PROVIDERS: ADMIT Internal Medicine; ATTEND Internal Medicine
PROC: 30233N1 Transfusion of Nonautologous Red Blood Cells into Peripheral Vein, Percutaneous Approach (ICD-10-PCS; 2018-02-18)
PROC: 0DB68ZX Excision of Stomach, Via Natural or Artificial Opening Endoscopic, Diagnostic (ICD-10-PCS; 2018-02-22)
PROC: 0DB48ZX Excision of Esophagogastric Junction, Via Natural or Artificial Opening Endoscopic, Diagnostic (ICD-10-PCS; 2018-02-22)
PROC: 0DBE8ZX Excision of Large Intestine, Via Natural or Artificial Opening Endoscopic, Diagnostic (ICD-10-PCS; principal; 2018-02-22 13:45)
PROC: 0DB98ZX Excision of Duodenum, Via Natural or Artificial Opening Endoscopic, Diagnostic (ICD-10-PCS; 2018-02-22 13:45)
DX: D50.0 Iron deficiency anemia secondary to blood loss (chronic) (principal); E11.40 Type 2 diabetes mellitus with diabetic neuropathy, unspecified; K74.69 Other cirrhosis of liver; I85.10 Secondary esophageal varices without bleeding; K76.6 Portal hypertension; K52.9 Noninfective gastroenteritis and colitis, unspecified; K63.5 Polyp of colon; K29.70 Gastritis, unspecified, without bleeding; F19.90 Other psychoactive substance use, unspecified, uncomplicated; I10 Essential (primary) hypertension; N40.0 Benign prostatic hyperplasia without lower urinary tract symptoms; K64.8 Other hemorrhoids; K21.9 Gastro-esophageal reflux disease without esophagitis; K22.70 Barrett's esophagus without dysplasia; Z87.891 Personal history of nicotine dependence; Z79.4 Long term (current) use of insulin